=== PATIENT | male | born 1975 | race Caucasian/White ===

== ENCOUNTER 2018-06-25 20:20 | Inpatient (IN) ==
[2018-06-25] MEDS ORDERED: *HR* LORazepam 2 MG/ML VIAL IVP PRN (20:41)
[2018-06-25] MEDS ORDERED: *HR* LORazepam 2 MG/ML VIAL ONE (20:43)
[2018-06-25] MEDS ORDERED: 0.9 % Sodium Chloride 1,000 ML IVC ONE ×3 (20:44→21:50)
[2018-06-25] MEDS ORDERED: *HR* LORazepam 2 MG/ML VIAL IVP ONE (20:49)
[2018-06-25] MEDS ORDERED: Haloperidol Lactate 5 MG/ML VIAL IVP ONE (20:51)
[2018-06-25] MEDS: Isovue-370 500 ML INFUS..BTL IV ONE ×2 (21:04→21:05)
--- NOTE | 2018-06-25 21:05 | Emergency Department Note ---
Disposition Clinical Impression: Generalized seizure, Agitation, Hepatic encephalopathy Disposition: Admitted As Inpatient Condition: Fair General Adult HPI - General Chief complaint: ED Seizure Stated complaint: AMS Time Seen by Provider: 06/25/18 20:29 Source: EMS Limitations: altered mental status Nursing Notes Reviewed: Yes Vital Signs Reviewed: Yes - History of Present Illness HPI Narrative: 43-year-old male presents emergency department via EMS with concern for being found unresponsive at home. Family reported that patient had a seizure. He has history of seizures. Reports history of liver cirrhosis because he use to drink alcohol. Reports that he has not consumed alcohol in years. No known history of agitation the past per family members including . Reported that patient complaining of some left flank pain earlier today. Patient very agitated and stating that he wants to leave AGAINST MEDICAL ADVICE. When asked, family state that the patient has had no stressors recently. Reports that he has had no psy chiatric illnesses. Do not know what type of antiepileptic medication he is on. Reports that he has been to the neurologist. Pain Scale: 0 - Related Data Home Medications Medication Instructions Recorded Confirmed Amlodipine Besylate 2.5 mg PO HS 09/20/17 09/20/17 Insulin ASPART [NovoLOG] 0 unit SQ TIDWM 09/20/17 06/25/18 [place]-3 Fatty Acids [Fish Oil] 1,000 mg PO QAM 09/20/17 06/25/18 Pravastatin Sodium [Pravachol] 40 mg PO HS 09/20/17 06/25/18 metFORMIN [Glucophage] 1,000 mg PO BIDWM 09/20/17 06/25/18 Isosorbide DInitrate 06/25/18 Neurontin 06/25/18 06/25/18 Nicoderm 06/25/18 Nitro-Bid 06/25/18 Omeprazole 20 06/25/18 TraZODone 06/25/18 06/25/18 Allergies Allergy/AdvReac Type Severity Reaction Status Date / Time linagliptin [From Tradjenta] Allergy Hives Verified 09/20/17 19:35 terfenadine [From Seldane] Allergy Rash Verified 09/20/17 19:35 All systems ED: reviewed and negative except as stated. Review of Systems: As Per HPI Limitations: ROS unobtainable due to patients medical condition (Agitated) Past Medical History - Past Medical History Medical history: Reports: asthma, diabetes, hyperlipidemia, hypertension, seizures, TIA Surgical history: Reports: appendectomy Psychiatric history: Reports: bipolar - Social History Smoking Status: Current every day smoker Smokeless Tobacco Status: No Alcohol use: Reports: none Drug use: Reports: none Physical Exam - General Limitations: altered mental status General appearance: anxious, other (Patient very angry and agitated) - Head Head exam: atraumatic - Eye Eye exam: Present: EOMI. Absent: scleral icterus - ENT ENT exam: mucous membranes moist - Neck Neck exam: Present: trachea midline - Chest Chest inspection: Present: symmetric chest wall rise - Respiratory Respiratory exam: Present: normal lung sounds bilaterally. Absent: respiratory distress, accessory muscle use - Cardiovascular Cardiovascular exam: Present: tachycardia - Abdominal Exam Abdominal exam: Present: soft, Non-Tender. Absent: tenderness, distention, guarding, rebound - Extremities Exam Extremities exam: Present: normal capillary refill - Back Exam Back exam: Present: full ROM - Neurological Exam Neurological exam: Present: other (Unable to assess due to patient's agitation) - Psychiatric Psychiatric exam: Present: normal mood - Skin Skin exam: Present: warm, dry, intact, normal color. Absent: rash Course Vital Signs Temperature 99.1 F 06/25/18 20:22 Pulse Rate 161 06/25/18 20:22 Respiratory Rate 32 06/25/18 20:22 Blood Pressure 114/65 06/25/18 20:22 O2 Sat by Pulse Oximetry 93 06/25/18 20:22 Temperature 99.1 F 06/25/18 20:22 Pulse Rate 110 06/25/18 21:37 Respiratory Rate 15 06/25/18 21:37 Blood Pressure 106/74 06/25/18 21:37 O2 Sat by Pulse Oximetry 100 06/25/18 21:37 Oxygen Delivery Oxygen Delivery Room Air Medical Decision Making - MDM Narrative Medical decision making narrative: 43-year-old male presents emergency department with acute agitation. Patient is tachycardic, hypertensive, extremely agitated. We gave 4 mg of Ativan as well as 5 mg of Haldol. Patient has known history of coronary artery disease. He is receiving heart catheter on Wednesday. We wanted to help patient with his agitation as much as possible out of concern for causing patient to develop ACS. Patient did calm down after the initial spell of agitation. His EKG did not reveal any ischemic changes. Troponin was negative. We obtain a serum CK isconcern that patient may have had seizure-like activity. This is within normal limits. Patient was given a banana bag here in the emergency department visit is concerned that he may be chronic alcoholic despite reports that family state that he is not. He was also given 3 L of fluids. Normal saline. We obtain CT scan of the head as well as CT angiography of the chest and CTAof the abdomen and pelvis. It does not reveal any acute abnormality. There is concerns however, for splenomegaly and portal hypertension per radiology. Patient did have an elevated ammonia level of 63. We did give him lactulose. Patient was hypokalemic at 3.2. Given 40 mEq of potassium. We will also obtain a magnesium level the patient as well. Blood cultures have been obtained. We will not start antimicrobials at this time as we do not find a source of infection. Lactic acid was elevated at 4.8. This was addressed with fluid administration. Patient has a known diabetic. He had elevated glucose. No evidence of diabetic ketoacidosis at this time. No evidence of any other anti-gap acidosis as well. At this time, there is mostly concerning for possibility of alcohol withdrawal. Urine drug screen does not reveal any evidence of other ingestants that could be causing a sympathomimetic responses with the patient's having. I discussed admission with the family. Patient was pink slipped as there was concern that there may be a psychiatric component to this. I spoke with Dr. Mak agreed to accept the patient for admission. He has been placed on [facility] protocol. Abdomen/Pelvis CTA 06/25/18 20:40 IMPRESSION: 1. No acute aortic pathology. No aneurysm or dissection. Minimal atherosclerotic disease at the aortic bifurcation. No flow limiting stenosis. 2. No acute pulmonary findings. 3. No acute findings within the abdomen or pelvis. 4. Stable mild to moderate splenomegaly. This may be related to portal hypertension with gastric and esophageal varices apparent on previous CT of the abdomen. D/ : / 06/25/2018 21:48:04 José Miguel Albert MD / Shari Zhang Interpreting Provider: José Miguel Albert MD Chest CTA 06/25/18 20:40 IMPRESSION: 1. No acute aortic pathology. No aneurysm or dissection. Minimal atherosclerotic disease at the aortic bifurcation. No flow limiting stenosis. 2. No acute pulmonary findings. 3. No acute findings within the abdomen or pelvis. 4. Stable mild to moderate splenomegaly. This may be related to portal hypertension with gastric and esophageal varices apparent on previous CT of the abdomen. D/ / 06/25/2018 21:48:04 José Miguel Albert MD / Shari Zhang Interpreting Provider: José Miguel Albert MD Head CT 06/25/18 20:40 IMPRESSION: No acute intracranial abnormality. D/ / David Gage MD / David Gage MD Interpreting Provider: David Gage MD Vital Signs Temperature 99.1 F 06/25/18 20:22 Pulse Rate 161 06/25/18 20:22 Respiratory Rate 32 06/25/18 20:22 Blood Pressure 114/65 06/25/18 20:22 O2 Sat by Pulse Oximetry 93 06/25/18 20:22 Temperature 99.1 F 06/25/18 20:22 Pulse Rate 110 06/25/18 21:37 Respiratory Rate 15 06/25/18 21:37 Blood Pressure 106/74 06/25/18 21:37 O2 Sat by Pulse Oximetry 100 06/25/18 21:37 Oxygen Delivery Oxygen Delivery Room Air - Lab Data Result diagrams: 06/25/18 21:11 06/25/18 21:11 Lab Results 06/25/18 06/25/18 06/25/18 Range/Units 21:03 21:11 21:11 WBC 4.3 (4.3-11.1) K/mcL RBC 4.38 (4.19-5.50) M/mcL Hgb 13.6 (12.9-16.9) g/dL Hct 38.8 (37.5-50.1) % MCV 88.6 (83.0-100.0) fL MCH 31.1 (28.0-33.3) pg MCHC 35.1 (31.6-35.5) g/dL RDW 12.4 (11.5-14.5) % Plt Count 50 L (140-400) K/mcL MPV 11.1 (9.4-12.4) fL Immature Gran % 0.2 (0-4) % Seg Neutrophils % 78.3 % Lymphocytes % 11.8 % Monocytes % 8.6 % Eosinophils % 0.9 % Basophils % 0.2 % Neutrophils # 3.4 (1.6-8.9) K/mcL Lymphocytes # 0.5 L (0.6-4.6) K/mcL Monocytes # 0.4 (0.0-1.3) K/mcL Eosinophils # 0.0 (0.0-0.6) K/mcL Basophils # 0.0 (0.0-0.2) K/mcL Immature Plt Fraction 4.5 (1.1-6.1) % PT 15.2 H (9.4-12.1) Seconds INR 1.4 VBG pH (7.32-7.42) pH Units VBG pCO2 (41-51) mmHg VBG pO2 (25-50) mmHg VBG HCO3 (21-27) mEq/L Sodium 134 L (136-145) mEq/L Potassium 3.2 L (3.5-5.1) mEq/L Chloride 106 (98-107) mEq/L Carbon Dioxide 18 L (23-29) mEq/L BUN 8 (6-20) mg/dL Creatinine 0.79 (0.70-1.30) mg/dL Est GFR ( Amer) > 60 (> 60) Est GFR (Non-Af Amer) > 60 (> 60) BUN/Creatinine Ratio 10 (6-26) Glucose 397 H (70-105) mg/dL Calculated Osmolality 293 (280-300) Lactic Acid (0.5-2.2) mmol/L Calcium 8.9 (8.6-10.3) mg/dL Magnesium 1.7 (1.6-2.6) mg/dL Total Bilirubin 0.6 (0.3-1.0) mg/dL Direct Bilirubin 0.1 (0.0-0.2) mg/dL Indirect Bilirubin 0.5 (0.0-1.2) mg/dL AST 32 (13-39) Units/L ALT 66 H (7-52) Units/L Alkaline Phosphatase 50 (34-104) Units/L Ammonia (16-53) mcmol/L Creatine Kinase 70 (30-223) Units/L Troponin I < 0.03 (< 0.04) ng/mL Serum Total Protein 5.8 L (6.4-8.9) g/dL Albumin 3.5 (3.5-5.7) g/dL Globulin 2.3 L (2.4-3.5) g/dL Albumin/Globulin Ratio 1.5 (1.1-2.2) Lipase 23 (11-82) Units/L Beta-Hydroxybutyric Acd (0.02-0.27) mmol/L TSH 2.434 (0.340-5.600) mcIU/mL Urine Color (Yellow) Urine Clarity (Clear) Urine pH (5.0-8.0) pH Units Ur Specific [place] (1.010-1.025) Urine Protein (Neg-Trace) mg/dL Urine Glucose (UA) (Normal) mg/dL Urine Ketones (Negative) mg/dL Urine Blood (Negative) Urine Nitrite (Negative) Urine Bilirubin (Negative) Urine Urobilinogen (Normal) mg/dL Ur Leukocyte Esterase (Negative) Ur Culture Indicated? (NO) Salicylates < 2.5 L (15.0-30.0) mg/dL Urine Opiates Screen (Iogbuh=906) ng/mL Acetaminophen < 10 L (10-20) mcg/mL Ur Barbiturates Screen (Rqrirb=242) ng/mL Ur Phencyclidine Scrn (Cutoff=25) ng/mL Ur Amphetamines Screen (Dbceei=2526) ng/mL U Benzodiazepines Scrn (Cgdgvt=950) ng/mL Urine Cocaine Screen (Cutoff= 300) ng/mL U Marijuana (THC) Screen (Cutoff = 50) ng/mL Ur Drug Screen Interp Ethyl Alcohol < 10 (Less than 10) mg/dL 06/25/18 06/25/18 06/25/18 Range/Units 21:11 21:11 21:11 WBC (4.3-11.1) K/mcL RBC (4.19-5.50) M/mcL Hgb (12.9-16.9) g/dL Hct (37.5-50.1) % MCV (83.0-100.0) fL MCH (28.0-33.3) pg MCHC (31.6-35.5) g/dL RDW (11.5-14.5) % Plt Count (140-400) K/mcL MPV (9.4-12.4) fL Immature Gran % (0-4) % Seg Neutrophils % % Lymphocytes % % Monocytes % % Eosinophils % % Basophils % % Neutrophils # (1.6-8.9) K/mcL Lymphocytes # (0.6-4.6) K/mcL Monocytes # (0.0-1.3) K/mcL Eosinophils # (0.0-0.6) K/mcL Basophils # (0.0-0.2) K/mcL Immature Plt Fraction (1.1-6.1) % PT (9.4-12.1) Seconds INR VBG pH (7.32-7.42) pH Units VBG pCO2 (41-51) mmHg VBG pO2 (25-50) mmHg VBG HCO3 (21-27) mEq/L Sodium (136-145) mEq/L Potassium (3.5-5.1) mEq/L Chloride (98-107) mEq/L Carbon Dioxide (23-29) mEq/L BUN (6-20) mg/dL Creatinine (0.70-1.30) mg/dL Est GFR ( Amer) (> 60) Est GFR (Non-Af Amer) (> 60) BUN/Creatinine Ratio (6-26) Glucose (70-105) mg/dL Calculated Osmolality (280-300) Lactic Acid 4.8 H* (0.5-2.2) mmol/L Calcium (8.6-10.3) mg/dL Magnesium (1.6-2.6) mg/dL Total Bilirubin (0.3-1.0) mg/dL Direct Bilirubin (0.0-0.2) mg/dL Indirect Bilirubin (0.0-1.2) mg/dL AST (13-39) Units/L ALT (7-52) Units/L Alkaline Phosphatase (34-104) Units/L Ammonia 63 H (16-53) mcmol/L Creatine Kinase (30-223) Units/L Troponin I (< 0.04) ng/mL Serum Total Protein (6.4-8.9) g/dL Albumin (3.5-5.7) g/dL Globulin (2.4-3.5) g/dL Albumin/Globulin Ratio (1.1-2.2) Lipase (11-82) Units/L Beta-Hydroxybutyric Acd 0.25 (0.02-0.27) mmol/L TSH (0.340-5.600) mcIU/mL Urine Color (Yellow) Urine Clarity (Clear) Urine pH (5.0-8.0) pH Units Ur Specific [place] (1.010-1.025) Urine Protein (Neg-Trace) mg/dL Urine Glucose (UA) (Normal) mg/dL Urine Ketones (Negative) mg/dL Urine Blood (Negative) Urine Nitrite (Negative) Urine Bilirubin (Negative) Urine Urobilinogen (Normal) mg/dL Ur Leukocyte Esterase (Negative) Ur Culture Indicated? (NO) Salicylates (15.0-30.0) mg/dL Urine Opiates Screen (Eqgwkm=557) ng/mL Acetaminophen (10-20) mcg/mL Ur Barbiturates Screen (Nfqjih=822) ng/mL Ur Phencyclidine Scrn (Cutoff=25) ng/mL Ur Amphetamines Screen (Xwifka=4188) ng/mL U Benzodiazepines Scrn (Ftyqbt=180) ng/mL Urine Cocaine Screen (Cutoff= 300) ng/mL U Marijuana (THC) Screen (Cutoff = 50) ng/mL Ur Drug Screen Interp Ethyl Alcohol (Less than 10) mg/dL 06/25/18 06/25/18 06/25/18 Range/Units 21:20 21:20 21:22 WBC (4.3-11.1) K/mcL RBC (4.19-5.50) M/mcL Hgb (12.9-16.9) g/dL Hct (37.5-50.1) % MCV (83.0-100.0) fL MCH (28.0-33.3) pg MCHC (31.6-35.5) g/dL RDW (11.5-14.5) % Plt Count (140-400) K/mcL MPV (9.4-12.4) fL Immature Gran % (0-4) % Seg Neutrophils % % Lymphocytes % % Monocytes % % Eosinophils % % Basophils % % Neutrophils # (1.6-8.9) K/mcL Lymphocytes # (0.6-4.6) K/mcL Monocytes # (0.0-1.3) K/mcL Eosinophils # (0.0-0.6) K/mcL Basophils # (0.0-0.2) K/mcL Immature Plt Fraction (1.1-6.1) % PT (9.4-12.1) Seconds INR VBG pH 7.40 (7.32-7.42) pH Units VBG pCO2 29 L (41-51) mmHg VBG pO2 117 H (25-50) mmHg VBG HCO3 18 L (21-27) mEq/L Sodium (136-145) mEq/L Potassium (3.5-5.1) mEq/L Chloride (98-107) mEq/L Carbon Dioxide (23-29) mEq/L BUN (6-20) mg/dL Creatinine (0.70-1.30) mg/dL Est GFR ( Amer) (> 60) Est GFR (Non-Af Amer) (> 60) BUN/Creatinine Ratio (6-26) Glucose (70-105) mg/dL Calculated Osmolality (280-300) Lactic Acid (0.5-2.2) mmol/L Calcium (8.6-10.3) mg/dL Magnesium (1.6-2.6) mg/dL Total Bilirubin (0.3-1.0) mg/dL Direct Bilirubin (0.0-0.2) mg/dL Indirect Bilirubin (0.0-1.2) mg/dL AST (13-39) Units/L ALT (7-52) Units/L Alkaline Phosphatase (34-104) Units/L Ammonia (16-53) mcmol/L Creatine Kinase (30-223) Units/L Troponin I (< 0.04) ng/mL Serum Total Protein (6.4-8.9) g/dL Albumin (3.5-5.7) g/dL Globulin (2.4-3.5) g/dL Albumin/Globulin Ratio (1.1-2.2) Lipase (11-82) Units/L Beta-Hydroxybutyric Acd (0.02-0.27) mmol/L TSH (0.340-5.600) mcIU/mL Urine Color Yellow (Yellow) Urine Clarity Clear (Clear) Urine pH 5.5 (5.0-8.0) pH Units Ur Specific [place] > 1.030 H (1.010-1.025) Urine Protein Negative (Neg-Trace) mg/dL Urine Glucose (UA) >=1000 H (Normal) mg/dL Urine Ketones Negative (Negative) mg/dL Urine Blood Negative (Negative) Urine Nitrite Negative (Negative) Urine Bilirubin Negative (Negative) Urine Urobilinogen Normal (Normal) mg/dL Ur Leukocyte Esterase Negative (Negative) Ur Culture Indicated? NO (NO) Salicylates (15.0-30.0) mg/dL Urine Opiates Screen Negative (Kuocea=223) ng/mL Acetaminophen (10-20) mcg/mL Ur Barbiturates Screen Negative (Kktqvj=209) ng/mL Ur Phencyclidine Scrn Negative (Cutoff=25) ng/mL Ur Amphetamines Screen Negative (Zkximd=5823) ng/mL U Benzodiazepines Scrn Positive H (Sktjln=171) ng/mL Urine Cocaine Screen Negative (Cutoff= 300) ng/mL U Marijuana (THC) Screen Negative (Cutoff = 50) ng/mL Ur Drug Screen Interp See Below Ethyl Alcohol (Less than 10) mg/dL - EKG Data EKG #1 EKG attestation: Yes I reviewed and interpreted this EKG. EKG results narrative: Heart rate 137 bpm, DE interval 147 ms, QRS duration 88 ms, QT 296 ms, QTC 447 ms, normal axis. Sinus tachycardia ventricular rate of 137 bpm. No evidence of any ischemic ST changes on this EKG. No right axis deviation, tall R-wave in aVR, QT calculated is mildly prolonged
[2018-06-25] MEDS ORDERED: Thiamine (B-1) 100 MG in 0.9 % Sodium Chloride 50 ML IVPB STA (21:11)
--- NOTE | 2018-06-25 21:12 | Emergency Department Note ---
Disposition Clinical Impression: Generalized seizure Disposition: Admitted As Inpatient Forms: ED Satisfaction Letter Time of Disposition: 21:12 General Adult HPI - General Chief complaint: ED Seizure Stated complaint: AMS Time Seen by Provider: 06/25/18 20:29 Source: EMS Limitations: altered mental status - History of Present Illness Pain Scale: 0 - Related Data Home Medications Medication Instructions Recorded Confirmed Amlodipine Besylate 2.5 mg PO HS 09/20/17 09/20/17 Insulin ASPART [NovoLOG] 0 unit SQ TIDWM 09/20/17 09/20/17 [place]-3 Fatty Acids [Fish Oil] 1,000 mg PO QAM 09/20/17 09/20/17 Pravastatin Sodium [Pravachol] 40 mg PO HS 09/20/17 09/20/17 metFORMIN [Glucophage] 1,000 mg PO BIDWM 09/20/17 09/20/17 Allergies Allergy/AdvReac Type Severity Reaction Status Date / Time linagliptin [From Tradjenta] Allergy Hives Verified 09/20/17 19:35 terfenadine [From Seldane] Allergy Rash Verified 09/20/17 19:35 Past Medical History - Past Medical History Medical history: Reports: asthma, diabetes, hyperlipidemia, hypertension, seizures, TIA Surgical history: Reports: appendectomy Psychiatric history: Reports: bipolar - Social History Smoking Status: Current every day smoker Smokeless Tobacco Status: No Alcohol use: Reports: none Drug use: Reports: none Physical Exam - General Limitations: altered mental status General appearance: anxious, other Course Vital Signs Temperature 99.1 F 06/25/18 20:22 Pulse Rate 161 06/25/18 20:22 Respiratory Rate 32 06/25/18 20:22 Blood Pressure 114/65 06/25/18 20:22 O2 Sat by Pulse Oximetry 93 06/25/18 20:22 Temperature 99.1 F 06/25/18 20:22 Pulse Rate 161 06/25/18 20:22 Respiratory Rate 32 06/25/18 20:22 Blood Pressure 114/65 06/25/18 20:22 O2 Sat by Pulse Oximetry 93 06/25/18 20:22 Oxygen Delivery Oxygen Delivery Room Air Attestation Statement - Attestation Attestation: I examined this patient and my medical decision-making was reviewed with the Resident Physician. I agree with the documented findings, disposition and treatment plan as described except to the extent set forth below. 43 year male presnts to the ED with complaints of agitation and tachycardiac in addiitionto hypertensive and had an unwtinessed seizure per family today. Kourtney was given 10mg valim per EMS and it appers that he has a history of alcoholism. Patient is displaying sympathomimetic behavior and this could be alcohol withdrawl as he presented with an unwitnessed seizure. Patint has required a great deal of seadtion at bed side and he became aggresssive towards staff and we have placed him on a72 hours pysch hold and will need to admit to medicine as he will likely need obserabtion for further wrosening of symptoms.
[2018-06-25 21:25] LABS: Basophils % 0.2 %; Mean Corpuscular Hemoglobin 31.1 pg (28.0-33.3)
[2018-06-25 21:25] LABS: VBG HCO3 18 mEq/L (21-27); VBG PCO2 29 mmHg (41-51); VBG PO2 117 mmHg (25-50)
[2018-06-25 21:26] LABS: Eosinophils % 0.9 %; Hematocrit 38.8 % (37.5-50.1); Hemoglobin 13.6 g/dL (12.9-16.9); Immature Granulocytes % 0.2 % (0-4); Immature Platelets 4.5 % (1.1-6.1); Lymphocytes # 0.5 K/mcL (0.6-4.6); Lymphocytes % 11.8 %; Mean Corpuscular HGB Conc 35.1 g/dL (31.6-35.5); Mean Corpuscular Volume 88.6 fL (83.0-100.0); Mean Platelet Volume 11.1 fL (9.4-12.4); Monocytes # 0.4 K/mcL (0.0-1.3); Monocytes % 8.6 %; Neutrophils # 3.4 K/mcL (1.6-8.9); Red Blood Count 4.38 M/mcL (4.19-5.50); Red Cell Distribution Width 12.4 % (11.5-14.5); Segmented Neutrophils % 78.3 %
[2018-06-25 21:32] LABS: Platelet Count 50 K/mcL (140-400)
[2018-06-25 21:39] LABS: Bilirubin,Urine Negative (Negative); Blood,Urine Negative (Negative); Clarity,Urine Clear (Clear); Color,Urine Yellow (Yellow); Glucose,Urine (UA) >=1000 mg/dL (Normal); Ketones,Urine Negative (Negative); Leukocyte Esterase,Urine Negative (Negative); Nitrite,Urine Negative (Negative); PH,Urine 5.5 pH Units (5.0-8.0); Protein,Urine Negative (Neg-Trace); Specific Gravity,Urine > 1.030 (1.010-1.025); Urobilinogen,Urine Normal (Normal)
[2018-06-25 21:46] LABS: Troponin I < 0.03 ng/mL (< 0.04)
[2018-06-25 21:47] LABS: Acetaminophen < 10 mcg/mL (10-20); Alanine Aminotransferase 66 Units/L (7-52); Albumin 3.5 g/dL (3.5-5.7); Albumin/Globulin Ratio 1.5 (1.1-2.2); Alkaline Phosphatase 50 Units/L (34-104); Aspartate Amino Transferase 32 Units/L (13-39); BUN/Creatinine Ratio 10 (6-26); Bilirubin,Direct 0.1 mg/dL (0.0-0.2); Bilirubin,Indirect 0.5 mg/dL (0.0-1.2); Bilirubin,Total 0.6 mg/dL (0.3-1.0); Blood Urea Nitrogen 8 mg/dL (6-20); Calcium 8.9 mg/dL (8.6-10.3); Carbon Dioxide 18 mEq/L (23-29); Chloride 106 mEq/L (98-107); Creatine Kinase 70 Units/L (30-223); Globulin 2.3 g/dL (2.4-3.5); Glucose 397 mg/dL (70-105); Osmolality,Calculated 293 (280-300); Potassium 3.2 mEq/L (3.5-5.1); Salicylate < 2.5 mg/dL (15.0-30.0); Sodium 134 mEq/L (136-145); Total Protein 5.8 g/dL (6.4-8.9); eGFR For Non-African Americans > 60 (> 60)
[2018-06-25] MEDS ORDERED: Lactulose Oral Soln 20 GM/30 ML UDC PO ONE (21:47)
[2018-06-25 21:52] LABS: Amphetamine Screen,Urine Negative ng/mL (Cutoff=1000); Barbiturate Screen,Urine Negative ng/mL (Cutoff=200); Benzodiazepines Screen,Urine Positive ng/mL (Cutoff=200); Cannabinoid Screen,Urine Negative ng/mL (Cutoff = 50); Cocaine Screen,Urine Negative ng/mL (Cutoff= 300); Opiate Screen,Urine Negative ng/mL (Cutoff=300); Phencyclidine Screen,Urine Negative ng/mL (Cutoff=25)
[2018-06-25 21:58] LABS: Ethanol < 10 mg/dL (Less than 10)
[2018-06-25 22:00] LABS: Thyroid Stimulating Hormone 2.434 mcIU/mL (0.340-5.600)
[2018-06-25 22:37] LABS: Lipase 23 Units/L (11-82); Magnesium 1.7 mg/dL (1.6-2.6)
[2018-06-25 22:39] LABS: INR 1.4; Prothrombin Time 15.2 Seconds (9.4-12.1)
[2018-06-25] MEDS ORDERED: Naloxone 0.4 MG/ML INJ IVP PRN (23:54)
[2018-06-26] MEDS ORDERED: *HR* LORazepam 2 MG/ML VIAL IVP PRN (00:04)
[2018-06-26 01:21] LABS: Basophils % 0.4 %; Mean Corpuscular Volume 89.1 fL (83.0-100.0)
[2018-06-26 01:23] LABS: Eosinophils # 0.1 K/mcL (0.0-0.6); Eosinophils % 1.3 %; Hemoglobin 14.1 g/dL (12.9-16.9); Immature Granulocytes % 0.2 % (0-4); Immature Platelets 5.4 % (1.1-6.1); Lymphocytes # 1.1 K/mcL (0.6-4.6); Lymphocytes % 20.8 %; Mean Corpuscular HGB Conc 35.3 g/dL (31.6-35.5); Mean Corpuscular Hemoglobin 31.4 pg (28.0-33.3); Mean Platelet Volume 11.5 fL (9.4-12.4); Monocytes # 0.4 K/mcL (0.0-1.3); Monocytes % 8.4 %; Neutrophils # 3.6 K/mcL (1.6-8.9); Red Blood Count 4.49 M/mcL (4.19-5.50); Red Cell Distribution Width 12.8 % (11.5-14.5); Segmented Neutrophils % 68.9 %
--- NOTE | 2018-06-26 01:30 | Internal Med History&Physical ---
<Sreedhar Laguerre Heath - Last Filed: 06/26/18 05:13> Date of Encounter: 06/26/18 Time of Encounter: 01:30 Internal Medicine - H&P: HPI Chief complaint: AMS Admitted From: Home Plans for Post Hospital Care: Home History of present illness: Mr. Munoz is a 43 year old male with PMH of cirrhosis, alcohol abuse, asthma, DM2, HLD, HTN, seizure disorder, and previous TIA. He presented to the ED today after being found unresponsive at home. Per ED reports, pt's reported that she was downstairs in the home and heard a thump upstairs. When she investigated she found her on the floor. Reported that he was breathing spontaneously but was not arousable. Since the pt has a known hx of seizures, the pt's waiting a short amount of time before calling EMS to bring him to the ED. Pt was given Ativan en route to the ED with a hx of alcohol abuse. Upon arrival to the ED, the pt became very agitated and aggressive. He was given Haldol and additional Ativan. During the encounter with this provider the pt was grossly lethargic likely related to significant amount of sedating medications. He was arousable to voice. Stated he did have some left lower quadrant pain. Denied any chest pain, shortness of breath, headache, numbness, or tingling. He was alert and oriented x3, and was able to recall that his was recently in the room, but was unaware of inciting events or ED events. The remaining history was limited as patient was not able to recall all information. He does admit to a history of seizures and follows with a neurologist at [facility]. Unsure of what seizure medications he has at home, but states he is compliant with the regimen. Endorses a history of alcohol abuse, but states his last alcoholic beverage was years ago. This was also endorsed by the pt's prior to my arrival. Past Med Surg Social Fam HX - Past Medical History Medical history: asthma, diabetes, hyperlipidemia, hypertension, seizures, TIA Additional medical history: liver cirrhosis. aortic aneurysm Psychiatric history: bipolar - Past Surgical History Surgical History: appendectomy - Social History Smoking Status: Current every day smoker Smokeless Tobacco Status: No Alcohol use: none Drug use: none - Family History Mother History Unknown: Yes Adopted: Yes Father History Unknown: Yes Adopted: Yes Internal Medicine - H&P: Meds Amlodipine Besylate 2.5 mg PO HS 09/20/17 [History] Insulin ASPART [NovoLOG] 0 unit SQ TIDWM 09/20/17 [History] [place]-3 Fatty Acids [Fish Oil] 1,000 mg PO QAM 09/20/17 [History] Pravastatin Sodium [Pravachol] 40 mg PO HS 09/20/17 [History] metFORMIN [Glucophage] 1,000 mg PO BIDWM 09/20/17 [History] Isosorbide DInitrate 06/25/18 [History] Neurontin 06/25/18 [History] Nicoderm 06/25/18 [History] Nitro-Bid 06/25/18 [History] Omeprazole 20 06/25/18 [History] TraZODone 06/25/18 [History] Allergy/AdvReac Type Severity Reaction Status Date / Time linagliptin [From Tradjenta] Allergy Hives Verified 09/20/17 19:35 terfenadine [From Seldane] Allergy Rash Verified 09/20/17 19:35 ROS unobtainable: due to mental status All Systems PM: A 10-system review of systems was performed and is negative for pertinent findings except as documented above in the HPI. - Constitutional Constitutional: no chills, no fever(s) - Cardiovascular Cardiovascular ROS IM: no chest pain, no dyspnea - Respiratory Respiratory: no cough, no hemoptysis, no dyspnea on exertion, no wheezing - Gastrointestinal Gastrointestinal: abdominal pain, no change in bowel habits, no nausea, no vomiting - Constitutional Vitals: Temp Pulse Resp BP Pulse Ox 99.1 F 110 15 106/74 100 06/25/18 20:22 06/25/18 21:37 06/25/18 21:37 06/25/18 21:37 06/25/18 21:37 General appearance: Present: cooperative, A&O X 3, answers questions appropriately Exam: General: well developed well nourished lethargic male Head: normocephalic and atraumatic Eyes: PERRL, EOMI, sclera anicteric, conjunctiva pink Neck: supple, trachea midline Lungs: CTA bilaterally. non-labored breathing. No wheezes, rales, or rhonchi. Heart: RRR +S1 +S2 no murmurs, clicks, or rubs GI: abdomen soft, midly TTP of right lower quadrant with some guarding. normoactive bowel sounds. Extremities: warm, peripheral pulses palpable and symmetrical. no cyanosis, edema, or calf tenderness Neuro: A&Ox3 when arousable. Remains grossly lethargic which makes full assessment difficult. Follows commands and moves all 4 extremities spontaneously Skin: warm, dry, intact Internal Med - H&P Results - Labs CBC & Chem 7: 06/26/18 01:02 06/26/18 01:02 Labs: Short CBC 06/25/18 Range/Units 21:11 WBC 4.3 (4.3-11.1) K/mcL Hgb 13.6 (12.9-16.9) g/dL Hct 38.8 (37.5-50.1) % Plt Count 50 L (140-400) K/mcL Neutrophils # 3.4 (1.6-8.9) K/mcL BMP 06/25/18 21:11 Sodium 134 L Potassium 3.2 L Chloride 106 Carbon Dioxide 18 L BUN 8 Creatinine 0.79 Glucose 397 H Calcium 8.9 Cardiac Enzymes 06/25/18 Range/Units 21:11 Troponin I < 0.03 (< 0.04) ng/mL Liver Function 06/25/18 Range/Units 21:11 Total Bilirubin 0.6 (0.3-1.0) mg/dL Direct Bilirubin 0.1 (0.0-0.2) mg/dL AST 32 (13-39) Units/L ALT 66 H (7-52) Units/L Alkaline Phosphatase 50 (34-104) Units/L Albumin 3.5 (3.5-5.7) g/dL Urine 06/25/18 Range/Units 21:20 Urine Color Yellow (Yellow) Urine Clarity Clear (Clear) Urine pH 5.5 (5.0-8.0) pH Units Ur Specific [place] > 1.030 H (1.010-1.025) Urine Protein Negative (Neg-Trace) mg/dL Urine Glucose (UA) >=1000 H (Normal) mg/dL - ABG Interpretation ABG results: 06/25/18 21:22 VBG pH 7.40 VBG pCO2 29 L VBG pO2 117 H VBG HCO3 18 L - Impressions ITS Impressions Abdomen/Pelvis CTA 06/25/18 20:40 IMPRESSION: 1. No acute aortic pathology. No aneurysm or dissection. Minimal atherosclerotic disease at the aortic bifurcation. No flow limiting stenosis. 2. No acute pulmonary findings. 3. No acute findings within the abdomen or pelvis. 4. Stable mild to moderate splenomegaly. This may be related to portal hypertension with gastric and esophageal varices apparent on previous CT of the abdomen. D/ /25/2018 21:48:04 José Miguel Albert MD / Shari Zhang Interpreting Provider: José Miguel Albert MD Chest CTA 06/25/18 20:40 IMPRESSION: 1. No acute aortic pathology. No aneurysm or dissection. Minimal atherosclerotic disease at the aortic bifurcation. No flow limiting stenosis. 2. No acute pulmonary findings. 3. No acute findings within the abdomen or pelvis. 4. Stable mild to moderate splenomegaly. This may be related to portal hypertension with gastric and esophageal varices apparent on previous CT of the abdomen. D/ /25/2018 21:48:04 José Miguel Albert MD / Shari Zhang Interpreting Provider: José Miguel Albert MD Head CT 06/25/18 20:40 IMPRESSION: No acute intracranial abnormality. D/ / David Gage MD / David Gage MD Interpreting Provider: David Gage MD - Assessment and plan (1) Generalized seizure Current Visit: Yes Status: Acute Assessment and plan: Unclear whether this episode of AMS was atypical seizure vs hepatic encephalopathy vs TIA CT head from ED was negative for acute abnormality Unknown seizure meds at this time, follows with neurologist at [facility] Received IV fluids in ED as well as a banana bag with reported remote alcohol use Also received lactulose in ED Has improved some clinically at this time. Is easily arousable and is A&Ox3 and was able to recall his was in the room earlier, however is not able to recall events from home or ED Will obtain MRI head to evaluate for any possible ischemic changes, and EEG with seizure hx Consult neurology for evaluation and input for further management (2) Hepatic encephalopathy Current Visit: Yes Status: Acute Assessment and plan: plan as above (3) Seizure disorder Current Visit: Yes Status: Chronic Assessment and plan: pt and pt's endorse a hx of seizure disorder Follows with neurologist at [facility] Unknown home meds at this time Can attempt to obtain records during the day (4) Cirrhosis Current Visit: Yes Status: Chronic Assessment and plan: known history Pt and pt's reports he has not consumed alcohol in multiple years Qualifiers: Hepatic cirrhosis type: alcoholic cirrhosis Ascites presence: unspecified Qualified Code(s): K70.30 - Alcoholic cirrhosis of liver without ascites (5) Thrombocytopenia Current Visit: Yes Status: Chronic Assessment and plan: Likely due to cirrhosis Was 50 on admission, has improved to 56 this morning Continue to monitor (6) DVT prophylaxis Current Visit: Yes Status: Acute Assessment and plan: EPCDs Hold chemical prophylaxis at this time with thrombocytopenia - Time Spent With Patient Total time spent is greater than 50% in coordination of care (as documented) at patient's floor/unit and/or counseling patient: <RooseveltmartinfedericoRandalgregg A - Last Filed: 06/26/18 06:24> Date of Encounter: 06/26/18 Internal Medicine - H&P: HPI History of present illness: Mr. Munoz is a 43 year old male All Systems PM: A 10-system review of systems was performed and is negative for pertinent findings except as documented above in the HPI. - Constitutional Vitals: Temp Pulse Resp BP Pulse Ox 97.9 F 95 18 115/77 100 06/26/18 01:45 06/26/18 02:55 06/26/18 02:55 06/26/18 02:55 06/26/18 02:55 Internal Med - H&P Results - Labs CBC & Chem 7: 06/26/18 01:02 06/26/18 01:02 Labs: Short CBC 06/25/18 06/26/18 Range/Units 21:11 01:02 WBC 4.3 5.2 (4.3-11.1) K/mcL Hgb 13.6 14.1 (12.9-16.9) g/dL Hct 38.8 40.0 (37.5-50.1) % Plt Count 50 L 56 L (140-400) K/mcL Neutrophils # 3.4 3.6 (1.6-8.9) K/mcL BMP 06/25/18 06/26/18 21:11 01:02 Sodium 134 L 136 Potassium 3.2 L 3.9 Chloride 106 110 H Carbon Dioxide 18 L 20 L BUN 8 7 Creatinine 0.79 0.70 Glucose 397 H 361 H Calcium 8.9 9.1 Cardiac Enzymes 06/25/18 06/26/18 Range/Units 21:11 01:02 Troponin I < 0.03 < 0.03 (< 0.04) ng/mL Liver Function 06/25/18 06/26/18 Range/Units 21:11 01:02 Total Bilirubin 0.6 0.6 (0.3-1.0) mg/dL Direct Bilirubin 0.1 (0.0-0.2) mg/dL AST 32 36 (13-39) Units/L ALT 66 H 69 H (7-52) Units/L Alkaline Phosphatase 50 54 (34-104) Units/L Albumin 3.5 3.8 (3.5-5.7) g/dL Urine 06/25/18 Range/Units 21:20 Urine Color Yellow (Yellow) Urine Clarity Clear (Clear) Urine pH 5.5 (5.0-8.0) pH Units Ur Specific [place] > 1.030 H (1.010-1.025) Urine Protein Negative (Neg-Trace) mg/dL Urine Glucose (UA) >=1000 H (Normal) mg/dL - ABG Interpretation ABG results: 06/25/18 21:22 VBG pH 7.40 VBG pCO2 29 L VBG pO2 117 H VBG HCO3 18 L - Impressions ITS Impressions Abdomen/Pelvis CTA 06/25/18 20:40 IMPRESSION: 1. No acute aortic pathology. No aneurysm or dissection. Minimal atherosclerotic disease at the aortic bifurcation. No flow limiting stenosis. 2. No acute pulmonary findings. 3. No acute findings within the abdomen or pelvis. 4. Stable mild to moderate splenomegaly. This may be related to portal hypertension with gastric and esophageal varices apparent on previous CT of the abdomen. D/ : / 06/25/2018 21:48:04 José Miguel Albert MD / Shari Zhang Interpreting Provider: José Miguel Albert MD Chest CTA 06/25/18 20:40 IMPRESSION: 1. No acute aortic pathology. No aneurysm or dissection. Minimal atherosclerotic disease at the aortic bifurcation. No flow limiting stenosis. 2. No acute pulmonary findings. 3. No acute findings within the abdomen or pelvis. 4. Stable mild to moderate splenomegaly. This may be related to portal hypertension with gastric and esophageal varices apparent on previous CT of the abdomen. D/ / 06/25/2018 21:48:04 José Miguel Albert MD / Shari troncoso Interpreting Provider: José Miguel Albert MD Head CT 06/25/18 20:40 IMPRESSION: No acute intracranial abnormality. D/ / David Gage MD / David Gage MD Interpreting Provider: David Gage MD - Assessment and plan (1) Thrombocytopenia Current Visit: Yes Status: Chronic (2) Cirrhosis Current Visit: Yes Status: Chronic Qualifiers: Hepatic cirrhosis type: alcoholic cirrhosis Ascites presence: unspecified Qualified Code(s): K70.30 - Alcoholic cirrhosis of liver without ascites (3) Generalized seizure Current Visit: Yes Status: Acute (4) Hepatic encephalopathy Current Visit: Yes Status: Acute (5) Seizure disorder Current Visit: Yes Status: Chronic (6) DVT prophylaxis Current Visit: Yes Status: Acute - Time Spent With Patient Total time spent is greater than 50% in coordination of care (as documented) at patient's floor/unit and/or counseling patient: - Attending Attestation I performed a history and physical examination of the patient and discussed my documented findings with the resident. I reviewed the resident's note and agree with assessment and plan of care.
[2018-06-26 01:41] LABS: Alanine Aminotransferase 69 Units/L (7-52); Albumin 3.8 g/dL (3.5-5.7); Albumin/Globulin Ratio 1.6 (1.1-2.2); Alkaline Phosphatase 54 Units/L (34-104); Aspartate Amino Transferase 36 Units/L (13-39); BUN/Creatinine Ratio 10 (6-26); Bilirubin,Total 0.6 mg/dL (0.3-1.0); Blood Urea Nitrogen 7 mg/dL (6-20); Calcium 9.1 mg/dL (8.6-10.3); Carbon Dioxide 20 mEq/L (23-29); Chloride 110 mEq/L (98-107); Globulin 2.4 g/dL (2.4-3.5); Glucose 361 mg/dL (70-105); Magnesium 1.9 mg/dL (1.6-2.6); Osmolality,Calculated 295 (280-300); Potassium 3.9 mEq/L (3.5-5.1); Sodium 136 mEq/L (136-145); Total Protein 6.2 g/dL (6.4-8.9); eGFR For Non-African Americans > 60 (> 60)
[2018-06-26] MEDS: 0.9 % Sodium Chloride 1,000 ML IVC SCH ×2 (02:02→15:58)
[2018-06-26 02:04] LABS: Platelet Count 56 K/mcL (140-400)
[2018-06-26 02:32] LABS: Troponin I < 0.03 ng/mL (< 0.04)
[2018-06-26] MEDS: Ibuprofen 400 MG TABLET PO PRN ×2 (05:31→22:16)
[2018-06-26] MEDS ORDERED: *HR* Heparin 5,000 UNIT/ML VIAL SQ SCH (06:00)
[2018-06-26] MEDS ORDERED: *HR* Dextrose 50 % in Water (Syg) 50 ML SYRINGE IVP PRN (06:41)
[2018-06-26] MEDS ORDERED: D5% in Water 1,000 ML IVC PRN (06:41)
[2018-06-26] MEDS ORDERED: Dextrose Gel 15 GM/37.5 ML TUBE PO PRN ×2 (06:41)
[2018-06-26] MEDS: Thiamine (B-1) 100 MG TABLET PO SCH (09:07)
[2018-06-26] MEDS: Folic Acid 1 MG TABLET PO SCH (09:07)
[2018-06-26] MEDS: Insulin LISPRO 300 UNITS/3 ML VIAL SQ SCH ×3 (09:08→17:14)
--- NOTE | 2018-06-26 14:07 | Event Note ---
Date of Encounter: 06/26/18 Time of Encounter: 14:07 Patient seen and examined at bedside. Alert and oriented 3. Wants to go home. Denies any tingling numbness or any further episodes of seizures. Complains of left upper quadrant pain. Denies any bowel or bladder complaints. Exam Constitutional: Vitals as noted. Conversant. No Apparent Distress. Eyes : Sclera white, conjunctiva clear, no lid lag, PEARLA. ENT : Grossly normal hearing. Oropharyngeal exam unremarkable. Moist mucus mem branes. No JVD, no cervical lymphadenopathy. no thyromegaly or mass. Respiratory : Clear to auscultation bilaterally. No accessory muscle use, rales, rhonchi or wheezes Cardiovascular : RRR, +S1, +S2. no murmur, gallop, rubs. No chest wall tenderness GI/Abdominal : Soft, Tenderness on LUQ and back on Left. Non-distended, normal bowel sounds, no peritoneal signs. Musculoskeletal: no deformity noted. no edema or cyanosis. warm extremities, pulses palpable and symmetrical in UE/LE. no calf tenderness. Neurological: AO X3, CN II-XII grossly intact, grossly normal motor and sensory exam. Skin: No skin rash, lesions or ulcers noted. Pych: Memory not intact for the event, AOx3. Assessment 1 altered mental status 2 liver cirrhosis 3 thrombocytopenia 4 esophageal and gastric varices 5 mild to moderate splenomegaly 6 history of stroke in his 20s 7 uncontrolled diabetes 8 hypertension 9 asthma 10 smoker 11 Lactic acidosis 12 h/o portal vein thrombosis Plan - Unclear whether episode of seizure versus TIA versus hepatic encephalopathy vs metformin toxicity. Head CT unremarkable. On topamax for seizure disorder. Was being followed at [facility]. Currently appear back to baseline without any focal deficits. Follow-up MRI. Neurology consulted. Had elevated ammonia in ER and received lactulose but has not had BM still. - History of liver cirrhosis. Denies previous history of encephalopathy. Patient does not appear to be on any medication to prevent hepatic encephalopathy. Was being followed up at [facility]. Appears to be unlikely - Thrombocytopenia likely from cirrhosis. No signs of active bleeding monitor for now. - Uncontrolled diabetes. Start Levemir 10 units at bedtime. Continue sliding scale insulin and Accu-Cheks. Hold metformin and Liraglutide - Resume home medication except sumatriptan, metformin, Liraglutide - Lactic acidosis likely related to liver cirrhosis and being on metformin. Patient possibly had metformin toxicity leading to altered mental status. We will discuss with neurology
[2018-06-26] MEDS: Nicotine 21 MG PATCH.TD24 TD SCH (17:09)
[2018-06-26] MEDS ORDERED: Insulin DETEMIR 100 UNIT/ML X5UNITS SQ SCH (21:00)
[2018-06-26] MEDS ORDERED: Insulin LISPRO 300 UNITS/3 ML VIAL SQ SCH (21:00)
[2018-06-27 05:40] LABS: BUN/Creatinine Ratio 12 (6-26); Blood Urea Nitrogen 8 mg/dL (6-20); Calcium 8.4 mg/dL (8.6-10.3); Carbon Dioxide 21 mEq/L (23-29); Chloride 106 mEq/L (98-107); Glucose 398 mg/dL (70-105); Osmolality,Calculated 293 (280-300); Potassium 3.7 mEq/L (3.5-5.1); Sodium 134 mEq/L (136-145); eGFR For Non-African Americans > 60 (> 60)
--- NOTE | 2018-06-27 07:55 | Neurology - Consult Note ---
<José Miguel Bowles - Last Filed: 06/27/18 14:15> Date of Encounter: 06/27/18 Time of Encounter: 07:53 Assessment and Plan (1) Syncope Status: Acute Patient had unresponsive episode at home. He started Imdur ER the same day as the syncopal event. Possible etiology includes vasovagal syncope. Patient is scheduled for a [facility] on 06/29/18. Echo revealed EF 60-65% Patient has been on telemetry monitoring Outpatient follow up Qualifiers: Syncope type: unspecified Qualified Code(s): R55 - Syncope and collapse (2) Migraines Status: Chronic Patient follow up with [facility] Resume home Imitrex and Topamax Qualifiers: Migraine type: with aura Status migrainosus presence: without status migrainosus Intractability: not intractable Qualified Code(s): G43.109 - Migraine with aura, not intractable, without status migrainosus (3) Seizure disorder Status: Chronic Patient sees [facility] neurology for seizure disorder. Family reports he has been compliant with his Topamax at home. Patient's found him on the floor and thought he may be in a postictal state. She called EMS after he did not regain consciousness after several minutes. CT head revealed no acute intracranial abnormality. MRI brain revealed no acute abnormality EEG results pending Continue home dose Topamax. Further recommendations to follow (4) Cirrhosis Status: Chronic Qualifiers: Hepatic cirrhosis type: alcoholic cirrhosis Ascites presence: unspecified Qualified Code(s): K70.30 - Alcoholic cirrhosis of liver without ascites (5) Hepatic encephalopathy Status: Resolved Patient received Ativan and Haldol via EMS secondary to agitation and aggression. Patient had elevated ammonia level and was started on lactulose. Management per primary team. 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 Munoz is a 43 year old male with a past medical history of alcoholic cirrhosis, hypertension, diabetes, CVA with residual left sided weakness, and [facility] follow-up for migraines and seizure disorder who presented after an unresponsive episode at home. Patient's found him on the floor and thought he may be in a postictal state. She called EMS after he did not regain consciousness after several minutes. He received Ativan and Haldol in route secondary to agitation and aggression. Family reports he recently started Imdur ER on Wednesday which ahas worsened his migraines and he has been compliant with his Topamax and Imitrex at home. In the ED, patient had elevated ammonia level and was started on lactulose. He does not remember anything from yesterday and is now A&Ox3. CT head revealed no acute intracranial abnormality. MRI brain was ordered and neurology was consulted for further recommendations. Past Med Surg Social Fam HX - Past Medical History Medical history: asthma, diabetes, hyperlipidemia, hypertension, seizures, TIA Additional medical history: liver cirrhosis. aortic aneurysm Psychiatric history: bipolar - Past Surgical History Surgical History: appendectomy - Social History Smoking Status: Current every day smoker Smokeless Tobacco Status: No Alcohol use: none Drug use: none - Family History Mother History Unknown: Yes Adopted: Yes Father History Unknown: Yes Adopted: Yes Medications and Allergies Amlodipine Besylate 2.5 mg PO HS 09/20/17 [History] Pravastatin Sodium [Pravachol] 40 mg PO HS 09/20/17 [History] Aspirin [Adult Aspirin] 81 mg PO DAILY 06/26/18 [History] Insulin ASPART [NovoLOG] 16 - 18 unit SQ TID MDD SLIDING SCALE 06/26/18 [History] Liraglutide [Victoza 2-Fidencio] 1.2 mg SQ DAILY 06/26/18 [History] Multivit-Min/FA/Lycopen/Lutein [A Thru Z Select Men 50+ Tablet] 1 tab PO DAILY 06/26/18 [History] Nitroglycerin [Nitrostat] 0.4 mg SL Q5M PRN 06/26/18 [History] Omeprazole [PriLOSEC] 40 mg PO DAILY 06/26/18 [History] Quetiapine Fumarate [Seroquel] 50 mg PO HS 06/26/18 [History] SUMAtriptan Succinate [Imitrex] 100 mg PO DAILY PRN 06/26/18 [History] Topiramate [Topamax] 100 mg PO BID 06/26/18 [History] Trazodone HCl 100 mg PO HS 06/26/18 [History] Blood Sugar Diagnostic [Blood Glucose Test Strip] 1 each QID #100 strip 06/27/18 [Rx] Insulin DETEMIR [Levemir] 15 unit SQ HS #1 vial 06/27/18 [Rx] Insulin LISPRO [HumaLOG] See Protocol SQ TIDAC 30 Days #1 vial 06/27/18 [Rx] Lancets [Alternate Site Lancets] 1 each QID #100 each 06/27/18 [Rx] Syringe and Needle,Insulin,1Ml [Insulin Syringe] 1 each QID #100 disp.syrin 06/27/18 [Rx] Allergy/AdvReac Type Severity Reaction Status Date / Time linagliptin [From Tradjenta] Allergy Hives Verified 09/20/17 19:35 terfenadine [From Seldane] Allergy Rash Verified 09/20/17 19:35 All Systems: The remainder of the systems were reviewed and are negative - Constitutional Constitutional ROS IM: fatigue, no chills - Nose, Mouth, Throat Nose, mouth and throat: headache(s), no sinus pressure - Cardiovascular Cardiovascular ROS IM: palpitations, no chest pain - Respiratory Respiratory IM: no cough, no dyspnea - Gastrointestinal Gastrointestinal: no abdominal pain, no diarrhea, no nausea, no vomiting - Genitourinary Genitourinary ROS: no urinary frequency, no urinary urgency - Musculoskeletal Musculoskeletal ROS IM: muscle weakness (chronic left sided weakness), no back pain, no neck pain - Integumentary Integumentary IM: no changing lesions, no new lesions - Neurological Neurological ROS: confusion, headache(s), memory loss, sensory deficit, weakness (chronic left sided weakness), no convulsions - Psychiatric Psychiatric general PM: no anxiety, no depression Physical Examination - Vital Signs Vital Signs: Initial Vital Signs Temp Pulse Resp BP Pulse Ox 99.1 F 161 32 114/65 93 06/25/18 20:22 06/25/18 20:22 06/25/18 20:22 06/25/18 20:22 06/25/18 20:22 - Constitutional General appearance: comfortable - Neurologic Sensorimotor examination: intact (subjective decreased sensation LUE, LLE) Detailed motor examination: full strength in all major muscle groups Motor examination - right side: 5/5: deltoids, biceps, triceps, wrist flexion, wrist extension, lock fitter, hip flexors, tibialis Anterior, quadriceps, toe extension (EHL), plantarflexion Motor examination - left side: 4/5: deltoids, biceps, triceps, wrist flexion, wrist extension, hip flexors, lock fitter, quadriceps, tibialis Anterior, toe extension (EHL), plantarflexion Detailed sensory examination: intact, light touch Reflex and gait examination: intact Reflexes: Biceps: 2+, Triceps: 2+, Brachioradialis: 2+, Patella: 2+, Achilles: 2 + Mental Status Examination: awake, alert, oriented to person, oriented to place, oriented to time, follows commands appropriately, answers questions appropriately, no agnosia, no aphasia, no aproxia Cranial nerve examination: PERRL, EOMI, visual gunn intact, sensory to face intact, mastication intact, no facial asymmetry is present, no dysarthria, hearing is intact symmetrically, flexes SCM and trapezius muscles symmetrically with full power, tongue protrudes midline, no atrophy or facial fasiculations present Cerebellar examination: no dysmetria, performs finger to nose and heel to hong symmetrically without ataxia (slight difficulty on left compared to right), no gait ataxia, no truncal ataxia, no difficulty with rapid alternating movements Results - Laboratory Findings CBC and BMP: 06/26/18 01:02 06/27/18 05:07 Abnormal lab findings: Abnormal lab results Plt Count 56 K/mcL (140-400) L 06/26/18 01:02 PT 15.2 Seconds (9.4-12.1) H 06/25/18 21:03 VBG pCO2 29 mmHg (41-51) L 06/25/18 21:22 VBG pO2 117 mmHg (25-50) H 06/25/18 21:22 VBG HCO3 18 mEq/L (21-27) L 06/25/18 21:22 Sodium 134 mEq/L (136-145) L 06/27/18 05:07 Carbon Dioxide 21 mEq/L (23-29) L 06/27/18 05:07 Creatinine 0.66 mg/dL (0.70-1.30) L 06/27/18 05:07 Glucose 398 mg/dL (70-105) H 06/27/18 05:07 POC Glucose 379 mg/dL (70-99) H 06/27/18 07:04 Calcium 8.4 mg/dL (8.6-10.3) L 06/27/18 05:07 ALT 69 Units/L (7-52) H 06/26/18 01:02 Ammonia 63 mcmol/L (16-53) H 06/25/18 21:11 Serum Total Protein 6.2 g/dL (6.4-8.9) L 06/26/18 01:02 Ur Specific Mystic > 1.030 (1.010-1.025) H 06/25/18 21:20 Urine Glucose (UA) >=1000 mg/dL (Normal) H 06/25/18 21:20 Salicylates < 2.5 mg/dL (15.0-30.0) L 06/25/18 21:11 Acetaminophen < 10 mcg/mL (10-20) L 06/25/18 21:11 U Benzodiazepines Scrn Positive ng/mL (Zoghwb=354) H 06/25/18 21:20 - Diagnostic Findings Additional findings: ITS Impressions Abdomen/Pelvis CTA 06/25/18 20:40 IMPRESSION: 1. No acute aortic pathology. No aneurysm or dissection. Minimal atherosclerotic disease at the aortic bifurcation. No flow limiting stenosis. 2. No acute pulmonary findings. 3. No acute findings within the abdomen or pelvis. 4. Stable mild to moderate splenomegaly. This may be related to portal hypertension with gastric and esophageal varices apparent on previous CT of the abdomen. D/ /25/2018 21:48:04 José Miguel Albert MD / Shari Zhang Interpreting Provider: José Miguel Albert MD Chest CTA 06/25/18 20:40 IMPRESSION: 1. No acute aortic pathology. No aneurysm or dissection. Minimal atherosclerotic disease at the aortic bifurcation. No flow limiting stenosis. 2. No acute pulmonary findings. 3. No acute findings within the abdomen or pelvis. 4. Stable mild to moderate splenomegaly. This may be related to portal hypertension with gastric and esophageal varices apparent on previous CT of the abdomen. D/ /25/2018 21:48:04 José Miguel Albert MD / Shari Zhang Interpreting Provider: José Miguel Albert MD Head CT 06/25/18 20:40 IMPRESSION: No acute intracranial abnormality. D/ / David Gage MD / David Gage MD Interpreting Provider: David Gage MD Consult Discharge Plan - Plan Instructions: Insulin Detemir (Injection), Diabetes Mellitus Type 2 in Adults (DC) Referrals: José Miguel Kelsey MD [Primary Care Provider] - 07/04/18 1:00 pm Prescriptions: Blood Sugar Diagnostic [Blood Glucose Test Strip] 1 each MC QID #100 strip Insulin DETEMIR [Levemir] 15 unit SQ HS #1 vial Insulin LISPRO [HumaLOG] See Protocol SQ TIDAC 30 Days #1 vial Lancets [Alternate Site Lancets] 1 each MC QID #100 each Syringe and Needle,Insulin,1Ml [Insulin Syringe] 1 each MC QID #100 disp.syrin <Antionette Lennon I - Last Filed: 06/27/18 15:56> Date of Encounter: 06/27/18 Assessment and Plan (1) Seizure disorder Status: Chronic Pt was seen and examined, my medical decision was reviewed with the Resident Physician, I agree with the documented findings, disposition and treatment plas as described except to the extent set forth below. seems to be back to his baseline no focal findings on his examination, No evidence of a stroke on his MRI of the brain EEG also did not show any abnormal seizure activity Possible that he could have a breakthrough seizure suggest to continue on his current dose of Topamax may need adjustment of his medication Suggest follow-up with his neurologist at [facility] Antionette Lennon MD History of Present Illness HPI: Mr. Munoz is a 43 year old male All Systems: The remainder of the systems were reviewed and are negative Physical Examination - Vital Signs Vital Signs: Initial Vital Signs Temp Pulse Resp BP Pulse Ox 99.1 F 161 32 114/65 93 06/25/18 20:22 06/25/18 20:22 06/25/18 20:22 06/25/18 20:22 06/25/18 20:22 - Exam Exam: GENERAL: Comfortable in no acute distress HEENT: Normal LUNGS: CTA HEART: RRR, S1 S2 Audible, no murmur EXTREMITIES: No Pedal edema. DETAILED NEUROLOGICAL EXAMINATION: MENTAL STATUS: Oriented to person, place, date and situation. Memory: knows the President, Aware of recent events Recent Memory Intact, Attention span is normal Cranial Nerve Examination: CN - II: Visual Acuity, Field of Vision Normal, Fundus examination: No disk edema, Pupils- size shape reaction to light and accommodation: All normal. CN III, IV, : External ocular movements were intact, Pupils were reactive, Nodrooping of the eyelids CN V: Sensation over the face to light touch and pinprick all normal. Corneal reflexes not tested, jaw jerk normal. CN VII: No facial asymmetry, no flattening of nasolabial folds, no difficulty in closing the eyes, no loss of forehead wrinkles, no difficulty in eye-closure, frowning raising eyebrows. CNVIII: No significant hearing loss CN IX, X: Uvula centralized not deviated, Gag reflex: Not tested CN X1: Sternocleidomastoid, trapezius, normal or evidence of any weakness. CN X11: No Dysarthria, no wasting or fibrilation f tongue muscles, no deviation, tongue muscle strength normal. - Constitutional General appearance: comfortable Results - Laboratory Findings CBC and BMP: 06/26/18 01:02 06/27/18 05:07 Abnormal lab findings: Abnormal lab results Plt Count 56 K/mcL (140-400) L 06/26/18 01:02 PT 15.2 Seconds (9.4-12.1) H 06/25/18 21:03 VBG pCO2 29 mmHg (41-51) L 06/25/18 21:22 VBG pO2 117 mmHg (25-50) H 06/25/18 21:22 VBG HCO3 18 mEq/L (21-27) L 06/25/18 21:22 Sodium 134 mEq/L (136-145) L 06/27/18 05:07 Carbon Dioxide 21 mEq/L (23-29) L 06/27/18 05:07 Creatinine 0.66 mg/dL (0.70-1.30) L 06/27/18 05:07 Glucose 398 mg/dL (70-105) H 06/27/18 05:07 POC Glucose 268 mg/dL (70-99) H 06/27/18 11:13 Calcium 8.4 mg/dL (8.6-10.3) L 06/27/18 05:07 ALT 69 Units/L (7-52) H 06/26/18 01:02 Ammonia 63 mcmol/L (16-53) H 06/25/18 21:11 Serum Total Protein 6.2 g/dL (6.4-8.9) L 06/26/18 01:02 Ur Specific Mystic > 1.030 (1.010-1.025) H 06/25/18 21:20 Urine Glucose (UA) >=1000 mg/dL (Normal) H 06/25/18 21:20 Salicylates < 2.5 mg/dL (15.0-30.0) L 06/25/18 21:11 Acetaminophen < 10 mcg/mL (10-20) L 06/25/18 21:11 U Benzodiazepines Scrn Positive ng/mL (Gpfnfy=393) H 06/25/18 21:20
[2018-06-27] MEDS: Insulin LISPRO 300 UNITS/3 ML VIAL SQ SCH ×2 (07:59→11:59)
[2018-06-27] MEDS: Thiamine (B-1) 100 MG TABLET PO SCH (08:00)
[2018-06-27] MEDS: Nicotine 21 MG PATCH.TD24 TD SCH (08:00)
[2018-06-27] MEDS: Folic Acid 1 MG TABLET PO SCH (08:00)
[2018-06-27] MEDS ORDERED: Isosorbide MONOnitrate (24 HR) 30 MG TAB.ER.24H PO SCH (11:00)
[2018-06-27] MEDS ORDERED: Aspirin Enteric Coated 81 MG Tablet PO SCH (11:00)
[2018-06-27 11:14] VITALS: BP 146/92
[2018-06-27] MEDS ORDERED: Topiramate 100 MG TABLET PO SCH (11:15)
[2018-06-27] MEDS ORDERED: SUMAtriptan succinate 50 MG TABLET PO PRN (13:55)
--- NOTE | 2018-06-27 14:24 | Discharge Summary ---
- NOTES TO OUTPATIENT PROVIDER Notes to Outpatient Provider: This metformin is stopped and started on insulin Levemir and sliding scale. We will need follow-up with [facility] neurology. Orders not resulted at time of discharge: Pending orders 06/25/18 21:11 Culture,Blood [BC] Stat Date of Encounter: 06/27/18 Time of Encounter: 14:23 - Discharge Diagnosis (1) Thrombocytopenia Priority: Secondary Status: Chronic (2) Cirrhosis Priority: Secondary Status: Chronic Qualifiers: Qualified Code(s): K70.30 - Alcoholic cirrhosis of liver without ascites (3) Generalized seizure Priority: Primary Status: Acute (4) Hepatic encephalopathy Priority: Secondary Status: Acute (5) Seizure disorder Priority: Secondary Status: Chronic (6) DVT prophylaxis Priority: Secondary Status: Acute Hospital course: Mr. Munoz is a 43 year old male past medical history of cirrhosis, asthma, diabetes, hypertension, seizure disorder and previous TIA/stroke was found unresponsive at home. Patient was given Ativan in ED with history of alcohol abuse the patient was agitated and received Haldol and Ativan in ER. Patient was admitted for altered mental status from possible seizures versus hepatic encephalopathy. Patient was also noted to have a lactic acidosis. Patient was managed with IV fluids and received lactulose for elevated ammonia levels. Patient improved Today. Patient's diabetes was significantly uncontrolled. Patient's head CT was unremarkable. Patient had CTA of the chest abdomen pelvis. which did not show any significant abnormality except mild to moderate splenomegaly. Neurology was consulted we will obtain MRI as well as EEG. MRI was unremarkable. EEG results are pending Patient was cleared by neurology to be discharged with the unclear reason for his presenting complaints. Patient would be discharged to continue his home anti-seizure medication. We will hold his metformin with possibility of metformin toxicity given his liver disease and lactic acidosis . We will also start his isosorbide dinitrate which was started recently with the possibility that he might have of low blood pressure. Discharge discussed with: patient, family, nurse, social work, managing consultant - Time Spent with Patient Total time spent providing and/or coordinating discharge services: Greater than 30 minutes (38) - Discharge Medications Prescriptions: Insulin DETEMIR [Levemir] 15 unit SQ HS #1 vial Home Medications: Amlodipine Besylate 2.5 mg PO HS 09/20/17 [History] Pravastatin Sodium [Pravachol] 40 mg PO HS 09/20/17 [History] Aspirin [Adult Aspirin] 81 mg PO DAILY 06/26/18 [History] Insulin ASPART [NovoLOG] 16 - 18 unit SQ TID MDD SLIDING SCALE 06/26/18 [History] Liraglutide [Victoza 2-Fidencio] 1.2 mg SQ DAILY 06/26/18 [History] Multivit-Min/FA/Lycopen/Lutein [A Thru Z Select Men 50+ Tablet] 1 tab PO DAILY 06/26/18 [History] Nitroglycerin [Nitrostat] 0.4 mg SL Q5M PRN 06/26/18 [History] Omeprazole [PriLOSEC] 40 mg PO DAILY 06/26/18 [History] Quetiapine Fumarate [Seroquel] 50 mg PO HS 06/26/18 [History] SUMAtriptan Succinate [Imitrex] 100 mg PO DAILY PRN 06/26/18 [History] Topiramate [Topamax] 100 mg PO BID 06/26/18 [History] Trazodone HCl 100 mg PO HS 06/26/18 [History] Insulin DETEMIR [Levemir] 15 unit SQ HS #1 vial 06/27/18 [Rx] Allergies/Adverse Reactions: Allergy/AdvReac Type Severity Reaction Status Date / Time linagliptin [From Tradjenta] Allergy Hives Verified 09/20/17 19:35 terfenadine [From Seldane] Allergy Rash Verified 09/20/17 19:35 Date of admission: 06/25/18 22:39 Primary care physician: José Miguel Kelsey MD Consults: 06/26/18 03:57 Consult to Neurology [CONS] Routine Consulting Provider: Neurology [facility] Reason for Consult: History of seizures, follows with a neurologist at [facility]. Presented for AMS, unclear if seizure related or TIA. Call Completed: No 06/27/18 11:24 Consult to Interpret Exam [CONS] Routine Consulting Provider: Antionette Lennon I Consult to Interpret Exam: Interpret EEG Discharging clinician: Kinza Martínez - Constitutional Vitals: Temp Pulse Resp BP Pulse Ox 97.4 F L 83 17 146/92 97 06/27/18 04:21 06/27/18 11:10 06/27/18 04:21 06/27/18 11:10 06/27/18 04:21 Exam: Constitutional: Vitals as noted. Conversant. No Apparent Distress. Eyes : Sclera white, conjunctiva clear, no lid lag, PEARLA. ENT : Grossly normal hearing. Oropharyngeal exam unremarkable. Moist mucus membranes. No JVD, no cervical lymphadenopathy. no thyromegaly or mass. Respiratory : Clear to auscultation bilaterally. No accessory muscle use, rales, rhonchi or wheezes Cardiovascular : RRR, +S1, +S2. no murmur, gallop, rubs. No chest wall tenderness GI/Abdominal : Soft, Tenderness on LUQ and back on Left. Non-distended, normal bowel sounds, no peritoneal signs. Musculoskeletal: no deformity noted. no edema or cyanosis. warm extremities, pulses palpable and symmetrical in UE/LE. no calf tenderness. Neurological: AO X3, CN II-XII grossly intact, grossly normal motor and sensory exam. Skin: No skin rash, lesions or ulcers noted. Pych: Memory not intact for the event, AOx3. - Patient Status Disposition: Home, Self-Care Condition: Fair - Discharge Instructions Follow Up With: José Miguel Kelsey MD [Primary Care Provider] - - Diet and Activity Activity: increase activity as tolerated
--- NOTE | 2018-06-27 17:09 | Electrocardiograph Report ---
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
[2018-06-27] MEDS ORDERED: traZODone 50 MG TABLET PO SCH (21:00)
--- NOTE | 2018-06-28 10:57 | EEG/EMG/Oth Biometrics Report ---
EEG Procedure Report Date of procedure: 06/27/18 EEG Procedure: Routine EEG Procedure Note: This is a routine 21 channel digital EEG performed utilizing 10- 20 international electrode placement system. FINDINGS: Patient has a predominant waking background frequency that is average voltage 8 to 10 Hertz alpha activity in the posterior region, normal amplitude symmetrical over the both hemispheres reactive to eyes opening and closing record continued to show alpha activity intermixed with some theta off and on, no abnormal activity recorded, predominantly no evidence of any spike wave discharges or any lateralizing abnormalities, Photic stimulation and hyperventilation did not produce any convulsive response. Intermittent EMG artifacts were noted. Stage II sleep was not achieved. Impression: Normal awake drowsy electroencephalogram. No epileptiform discharges or any other paroxysmal activities noted. ( Please note that normal EEG does not exclude the diagnosis of seizures or epilepsy, clinical correlation is suggested)
== END 2018-06-27 15:52 | disposition home or self-care (01) | DRG 101 ==
LOC: EMEROOARM 20:20 → 2NENU 20:20 → SUATTDRO 22:39 → OBSVTOIN 22:39 → 2NENU 06-26 01:00
PROVIDERS: ADMIT Internal Medicine; ATTEND Internal Medicine

== ENCOUNTER 2019-03-29 17:27 | Inpatient (IN) ==
[2019-03-29] MEDS ORDERED: 0.9 % Sodium Chloride 1,000 ML IVC ONE ×2 (17:42→20:42)
--- NOTE | 2019-03-29 17:42 | Emergency Department Note ---
Disposition Clinical Impression: Seizure, Agitation, Hyperglycemia Pneumonia Qualifiers: Pneumonia type: due to unspecified organism Laterality: bilateral Lung location: unspecified part of lung Qualified Code(s): J18.9 - Pneumonia, unspecified organism Disposition: Admitted As Inpatient Condition: Good Referrals: José Miguel Kelsey MD [Primary Care Provider] - Forms: ED Satisfaction Letter Time of Disposition: 00:34 General Adult HPI - General Chief complaint: ED Seizure Stated complaint: Seizure Time Seen by Provider: 03/29/19 17:41 Nursing Notes Reviewed: Yes Vital Signs Reviewed: Yes - History of Present Illness HPI Narrative: 43-year-old male presents emergency department after having a seizure. Patient has not had a seizure in a couple of weeks per . Patient currently is postictal per . He was complaining of abdominal pain earlier today. He has history of alcoholic liver cirrhosis. reports that patient has history of alcoholic liver cirrhosis, but has not consumed any alcohol in several years. Had a previous visit before where he became extremely agitated. CT scan of the abdomen and pelvis revealed concern for atelectasis versus superimposed infiltrate. Abdomen/Pelvis CT 03/29/19 17:44 IMPRESSION: 1. Dependent consolidative changes at the lung bases bilaterally, right greater than left. Findings may reflect atelectasis, however, superimposed infiltrate not entirely excluded. 2. Nonspecific stranding within the retroperitoneum and adjacent to the gallbladder and also extending along the bilateral pericolic gutters and within the presacral soft tissues. There is a small amount of intra-abdominal fluid. Previous contrast enhanced exam demonstrated partial thrombosis of the portal vein with clot extending into the SMV and splenic vein on CT from September 20, 2017. Findings potentially may be related to secondary congestion related to thrombus. The vascular structures are not evaluated on this noncontrast exam. 3. Redemonstration of mild pattern splenomegaly. 4. No evidence for bowel obstruction. Question mild bowel wall thickening. The bowel wall is not well evaluated on this noncontrast exam. D/ / Rolando Farrell MD / Rolando Farrell MD Interpreting Provider: Rolando Farrell MD Chest X-Ray 03/29/19 17:47 IMPRESSION: Negative portable study. D/ / Lorie Walters Cha, MD / Lorie Walters Cha, MD Interpreting Provider: Lorie Walters Cha, MD Head CT 03/29/19 19:02 IMPRESSION: No acute intracranial abnormality. D/ / 03/29/2019 21:33:12 Avel Hernandez / Shari Zhang Interpreting Provider: Avel Hernandez Abdomen/Pelvis CTA 03/29/19 21:50 IMPRESSION: 1. No acute aortic pathology. Mild atherosclerotic plaque. No visceral stenosis. 2. Cirrhosis with portal hypertension including splenomegaly and varices. However, the SMV and portal vein thrombosis noted on previous imaging is not evaluated. 3. Redemonstration of infiltration of the retroperitoneal soft tissues, particularly along the distribution of the DALIA. I believe this is likely related to the patient's portal hypertension. I would recommend a short interval follow-up CT in 3 months time. At this time, imaging should be performed during the portal venous phase. 4. Otherwise stable CT of the abdomen and pelvis. D/ / José Miguel Albert MD / José Miguel Albert MD Interpreting Provider: José Miguel Albert MD Pain Scale: 0 - Related Data Home Medications Medication Instructions Recorded Confirmed Amlodipine Besylate 2.5 mg PO HS 09/20/17 06/29/18 Pravastatin Sodium [Pravachol] 40 mg PO HS 09/20/17 06/29/18 Aspirin [Adult Aspirin] 81 mg PO DAILY 06/26/18 06/29/18 Insulin ASPART [NovoLOG] 16 - 18 unit SQ TID MDD SLIDING 06/26/18 06/29/18 SCALE Liraglutide [Victoza 2-Fidencio] 1.2 mg SQ DAILY 06/26/18 06/29/18 Multivit-Min/FA/Lycopen/Lutein [A 1 tab PO DAILY 06/26/18 06/29/18 Thru Z Select Men 50+ Tablet] Nitroglycerin [Nitrostat] 0.4 mg SL Q5M PRN 06/26/18 06/29/18 Omeprazole [PriLOSEC] 40 mg PO DAILY 06/26/18 06/29/18 Quetiapine Fumarate [Seroquel] 50 mg PO HS 06/26/18 06/29/18 SUMAtriptan Succinate [Imitrex] 100 mg PO DAILY PRN 06/26/18 06/29/18 Topiramate [Topamax] 100 mg PO BID 06/26/18 06/29/18 Trazodone HCl 100 mg PO HS 06/26/18 06/29/18 Previous Rx's Medication Instructions Recorded Insulin DETEMIR [Levemir] 15 unit SQ HS #1 vial 06/27/18 Allergies Allergy/AdvReac Type Severity Reaction Status Date / Time linagliptin [From Tradjenta] Allergy Hives Verified 03/29/19 20:31 terfenadine [From Seldane] Allergy Rash Verified 03/29/19 20:31 Varenicline [From Chantix] AdvReac Agitated Verified 03/29/19 20:31 All systems ED: reviewed and negative except as stated. Review of Systems: As Per HPI Limitations: ROS unobtainable due to patients medical condition (Review of systems obtained per ) Constitutional: Denies: fever Cardiovascular: Denies: chest pain Respiratory: Denies: dyspnea Gastrointestinal: Reports: abdominal pain. Denies: nausea, vomiting, diarrhea, constipation Genitourinary: Denies: urgency, dysuria, frequency Musculoskeletal: Denies: back pain Past Medical History - Past Medical History Attestation: Yes The following information was validated with the patient. Medical history: Reports: asthma, diabetes, GERD, hyperlipidemia, hypertension, seizures, TIA Surgical history: Reports: appendectomy Psychiatric history: Reports: bipolar - Social History Smoking Status: Current every day smoker Smokeless Tobacco Status: No Alcohol use: Reports: none Drug use: Reports: none Physical Exam - General Limitations: no limitations General appearance: lethargic - Head Head exam: normocephalic - Eye Eye exam: Present: EOMI. Absent: scleral icterus - ENT ENT exam: mucous membranes moist - Neck Neck exam: Present: trachea midline - Chest Chest inspection: Present: symmetric chest wall rise - Respiratory Respiratory exam: Present: normal lung sounds bilaterally. Absent: respiratory distress, accessory muscle use - Cardiovascular Cardiovascular exam: Present: normal rhythm, tachycardia, normal heart sounds - Abdominal Exam Abdominal exam: Present: soft, tenderness. Absent: distention, guarding, rebound, rigidity Abdominal tenderness: Present: diffuse, moderate - Extremities Exam Extremities exam: Present: normal capillary refill - Back Exam Back exam: Present: full ROM - Neurological Exam Neurological exam: Present: other (post-ictal) - Psychiatric Psychiatric exam: Present: agitated - Skin Skin exam: Present: warm, dry, intact, normal color. Absent: rash Course Vital Signs Temperature 98.6 F 03/29/19 17:34 Pulse Rate 125 03/29/19 17:34 Respiratory Rate 19 03/29/19 17:34 Blood Pressure 178/94 03/29/19 17:34 O2 Sat by Pulse Oximetry 96 03/29/19 17:34 Temperature 98.6 F 03/29/19 17:34 Pulse Rate 102 03/30/19 00:25 Respiratory Rate 20 03/30/19 00:25 Blood Pressure 118/71 03/30/19 00:25 O2 Sat by Pulse Oximetry 98 03/30/19 00:25 Oxygen Delivery Oxygen Delivery Room Air Medical Decision Making - MDM Narrative Medical decision making narrative: 43 year old male appearing post-ictal initially. After patient stopped being post-ictal, he became very agitated. Patient required multiple doses of ativan totaling 6 mg IV he was also given 5 mg ov Versed Patient currently maintaining his airway. Patient calmed down, was placed on end tidal CO2. CT scan of the head was within normal limits. Glucose was elevated at 489. VBG does not reveal any evidence of acidosis. No ketones. Obtain CT scan of abdomen and pelvis which revealed concern for possible atelectasis versus pneumonia. We will give Rocephin and azithromycin here in the emergency department. Patient was given 2 Liters of fluid in the ED. We have started him on 125ml/hr maintenance. After several hours of observation, patient started to become very agitated and violent. After worse, and he laid in the back of the bed and started having quick twitching eye movements for approximately 30 seconds before it cessated. Patient started to become agitated and violent again. Patient was then given a nother 2 mg of Ativan as well as 5 mg of Versed. Patient no longer violent in the emergency department as he is sedated. He is still protecting his airway. I spoke with the hospitalist who requests to speak to neurology. I spoke with Dr. Lennon who stated to start Her on the patient. He patient was provided 1 g IV. There was recommendation to place patient on CIWA protocol. There is also recommendation to give patient Keppra 500 mg twice daily. Abdomen/Pelvis CT 03/29/19 17:44 IMPRESSION: 1. Dependent consolidative changes at the lung bases bilaterally, right greater than left. Findings may reflect atelectasis, however, superimposed infiltrate not entirely excluded. 2. Nonspecific stranding within the retroperitoneum and adjacent to the gallbladder and also extending along the bilateral pericolic gutters and within the presacral soft tissues. There is a small amount of intra-abdominal fluid. Previous contrast enhanced exam demonstrated partial thrombosis of the portal vein with clot extending into the SMV and splenic vein on CT from September 20, 2017. Findings potentially may be related to secondary congestion related to thrombus. The vascular structures are not evaluated on this noncontrast exam. 3. Redemonstration of mild pattern splenomegaly. 4. No evidence for bowel obstruction. Question mild bowel wall thickening. The bowel wall is not well evaluated on this noncontrast exam. D/ / Rolando Farrell MD / Rolando Farrell MD Interpreting Provider: Rolando Farrell MD Chest X-Ray 03/29/19 17:47 IMPRESSION: Negative portable study. D/ / Lorie Walters Cha, MD / Lorie Walters Cha, MD Interpreting Provider: Lorie Walters Cha, MD Head CT 03/29/19 19:02 IMPRESSION: No acute intracranial abnormality. D/ / 03/29/2019 21:33:12 Avel Hernandez / Shari Zhang Interpreting Provider: Avel Hernandez Abdomen/Pelvis CTA 03/29/19 21:50 IMPRESSION: 1. No acute aortic pathology. Mild atherosclerotic plaque. No visceral stenosis. 2. Cirrhosis with portal hypertension including splenomegaly and varices. However, the SMV and portal vein thrombosis noted on previous imaging is not evaluated. 3. Redemonstration of infiltration of the retroperitoneal soft tissues, particularly along the distribution of the DALIA. I believe this is likely related to the patient's portal hypertension. I would recommend a short interval follow-up CT in 3 months time. At this time, imaging should be performed during the portal venous phase. 4. Otherwise stable CT of the abdomen and pelvis. D/ / José Miguel Albert MD / José Miguel Albert MD Interpreting Provider: José Miguel Albert MD - Lab Data Result diagrams: 03/29/19 19:20 03/29/19 19:20 Lab Results 03/29/19 03/29/19 03/29/19 Range/Units 17:39 17:41 19:20 WBC 4.5 (4.3-11.1) K/mcL RBC 4.68 (4.19-5.50) M/mcL Hgb 14.2 (12.9-16.9) g/dL Hct 40.5 (37.5-50.1) % MCV 86.5 (83.0-100.0) fL MCH 30.3 (28.0-33.3) pg MCHC 35.1 (31.6-35.5) g/dL RDW 12.7 (11.5-14.5) % Plt Count 49 L (140-400) K/mcL MPV 11.1 (9.4-12.4) fL Immature Gran % 0.4 (0-4) % Seg Neutrophils % 73.1 % Lymphocytes % 15.0 % Monocytes % 9.3 % Eosinophils % 1.5 % Basophils % 0.7 % Neutrophils # 3.3 (1.6-8.9) K/mcL Lymphocytes # 0.7 (0.6-4.6) K/mcL Monocytes # 0.4 (0.0-1.3) K/mcL Eosinophils # 0.1 (0.0-0.6) K/mcL Basophils # 0.0 (0.0-0.2) K/mcL Platelet Estimate Decreased L (Normal) Immature Plt Fraction 7.8 H (1.1-6.1) % PT (9.4-12.1) Seconds INR VBG pH (7.32-7.42) pH Units VBG pCO2 (41-51) mmHg VBG pO2 (25-50) mmHg VBG HCO3 (21-27) mEq/L Sodium (136-145) mEq/L Potassium (3.5-5.1) mEq/L Chloride (98-107) mEq/L Carbon Dioxide (23-29) mEq/L BUN (6-20) mg/dL Creatinine (0.70-1.30) mg/dL Est GFR ( Amer) (> 60) Est GFR (Non-Af Amer) (> 60) BUN/Creatinine Ratio (6-26) Glucose (70-105) mg/dL POC Glucose 462 H* 489 H* (70-99) mg/dL Calculated Osmolality (280-300) Calcium (8.6-10.3) mg/dL Total Bilirubin (0.3-1.0) mg/dL AST (13-39) Units/L ALT (7-52) Units/L Alkaline Phosphatase (34-104) Units/L Ammonia (16-53) mcmol/L Serum Total Protein (6.4-8.9) g/dL Albumin (3.5-5.7) g/dL Globulin (2.4-3.5) g/dL Albumin/Globulin Ratio (1.1-2.2) Lipase (11-82) Units/L Beta-Hydroxybutyric Acd (0.02-0.27) mmol/L Urine Color (Yellow) Urine Clarity (Clear) Urine pH (5.0-8.0) pH Units Ur Specific [place] (1.010-1.025) Urine Protein (Neg-Trace) mg/dL Urine Glucose (UA) (Normal) mg/dL Urine Ketones (Negative) mg/dL Urine Blood (Negative) Urine Nitrite (Negative) Urine Bilirubin (Negative) Urine Urobilinogen (Normal) mg/dL Ur Leukocyte Esterase (Negative) Ur Culture Indicated? (NO) Salicylates (15.0-30.0) mg/dL Urine Opiates Screen (Ynvswt=528) ng/mL Ur Buprenorphine Scrn (Cutoff=5) ng/mL Acetaminophen (10-20) mcg/mL Ur Barbiturates Screen (Iarjod=151) ng/mL Ur Phencyclidine Scrn (Cutoff=25) ng/mL Ur Amphetamines Screen (Ncqccf=7809) ng/mL U Benzodiazepines Scrn (Zhfcrb=496) ng/mL Urine Cocaine Screen (Cutoff= 300) ng/mL U Marijuana (THC) Screen (Cutoff = 50) ng/mL Ur Drug Screen Interp 03/29/19 03/29/19 03/29/19 Range/Units 19:20 19:20 19:20 WBC (4.3-11.1) K/mcL RBC (4.19-5.50) M/mcL Hgb (12.9-16.9) g/dL Hct (37.5-50.1) % MCV (83.0-100.0) fL MCH (28.0-33.3) pg MCHC (31.6-35.5) g/dL RDW (11.5-14.5) % Plt Count (140-400) K/mcL MPV (9.4-12.4) fL Immature Gran % (0-4) % Seg Neutrophils % % Lymphocytes % % Monocytes % % Eosinophils % % Basophils % % Neutrophils # (1.6-8.9) K/mcL Lymphocytes # (0.6-4.6) K/mcL Monocytes # (0.0-1.3) K/mcL Eosinophils # (0.0-0.6) K/mcL Basophils # (0.0-0.2) K/mcL Platelet Estimate (Normal) Immature Plt Fraction (1.1-6.1) % PT (9.4-12.1) Seconds INR VBG pH (7.32-7.42) pH Units VBG pCO2 (41-51) mmHg VBG pO2 (25-50) mmHg VBG HCO3 (21-27) mEq/L Sodium 136 (136-145) mEq/L Potassium 3.5 (3.5-5.1) mEq/L Chloride 104 (98-107) mEq/L Carbon Dioxide 24 (23-29) mEq/L BUN 9 (6-20) mg/dL Creatinine 0.93 (0.70-1.30) mg/dL Est GFR ( Amer) > 60 (> 60) Est GFR (Non-Af Amer) > 60 (> 60) BUN/Creatinine Ratio 10 (6-26) Glucose 388 H (70-105) mg/dL POC Glucose (70-99) mg/dL Calculated Osmolality 297 (280-300) Calcium 9.6 (8.6-10.3) mg/dL Total Bilirubin 0.9 (0.3-1.0) mg/dL AST 17 (13-39) Units/L ALT 24 (7-52) Units/L Alkaline Phosphatase 56 (34-104) Units/L Ammonia (16-53) mcmol/L Serum Total Protein 6.7 (6.4-8.9) g/dL Albumin 4.2 (3.5-5.7) g/dL Globulin 2.5 (2.4-3.5) g/dL Albumin/Globulin Ratio 1.7 (1.1-2.2) Lipase 24 (11-82) Units/L Beta-Hydroxybutyric Acd 0.23 (0.02-0.27) mmol/L Urine Color (Yellow) Urine Clarity (Clear) Urine pH (5.0-8.0) pH Units Ur Specific [place] (1.010-1.025) Urine Protein (Neg-Trace) mg/dL Urine Glucose (UA) (Normal) mg/dL Urine Ketones (Negative) mg/dL Urine Blood (Negative) Urine Nitrite (Negative) Urine Bilirubin (Negative) Urine Urobilinogen (Normal) mg/dL Ur Leukocyte Esterase (Negative) Ur Culture Indicated? (NO) Salicylates (15.0-30.0) mg/dL Urine Opiates Screen (Itumvf=821) ng/mL Ur Buprenorphine Scrn (Cutoff=5) ng/mL Acetaminophen < 10 L (10-20) mcg/mL Ur Barbiturates Screen (Jkonen=603) ng/mL Ur Phencyclidine Scrn (Cutoff=25) ng/mL Ur Amphetamines Screen (Fxfafl=9861) ng/mL U Benzodiazepines Scrn (Qcpmjc=215) ng/mL Urine Cocaine Screen (Cutoff= 300) ng/mL U Marijuana (THC) Screen (Cutoff = 50) ng/mL Ur Drug Screen Interp 03/29/19 03/29/19 03/29/19 Range/Units 19:20 19:20 19:20 WBC (4.3-11.1) K/mcL RBC (4.19-5.50) M/mcL Hgb (12.9-16.9) g/dL Hct (37.5-50.1) % MCV (83.0-100.0) fL MCH (28.0-33.3) pg MCHC (31.6-35.5) g/dL RDW (11.5-14.5) % Plt Count (140-400) K/mcL MPV (9.4-12.4) fL Immature Gran % (0-4) % Seg Neutrophils % % Lymphocytes % % Monocytes % % Eosinophils % % Basophils % % Neutrophils # (1.6-8.9) K/mcL Lymphocytes # (0.6-4.6) K/mcL Monocytes # (0.0-1.3) K/mcL Eosinophils # (0.0-0.6) K/mcL Basophils # (0.0-0.2) K/mcL Platelet Estimate (Normal) Immature Plt Fraction (1.1-6.1) % PT 14.9 H (9.4-12.1) Seconds INR 1.3 VBG pH (7.32-7.42) pH Units VBG pCO2 (41-51) mmHg VBG pO2 (25-50) mmHg VBG HCO3 (21-27) mEq/L Sodium (136-145) mEq/L Potassium (3.5-5.1) mEq/L Chloride (98-107) mEq/L Carbon Dioxide (23-29) mEq/L BUN (6-20) mg/dL Creatinine (0.70-1.30) mg/dL Est GFR ( Amer) (> 60) Est GFR (Non-Af Amer) (> 60) BUN/Creatinine Ratio (6-26) Glucose (70-105) mg/dL POC Glucose (70-99) mg/dL Calculated Osmolality (280-300) Calcium (8.6-10.3) mg/dL Total Bilirubin (0.3-1.0) mg/dL AST (13-39) Units/L ALT (7-52) Units/L Alkaline Phosphatase (34-104) Units/L Ammonia 59 H (16-53) mcmol/L Serum Total Protein (6.4-8.9) g/dL Albumin (3.5-5.7) g/dL Globulin (2.4-3.5) g/dL Albumin/Globulin Ratio (1.1-2.2) Lipase (11-82) Units/L Beta-Hydroxybutyric Acd (0.02-0.27) mmol/L Urine Color (Yellow) Urine Clarity (Clear) Urine pH (5.0-8.0) pH Units Ur Specific [place] (1.010-1.025) Urine Protein (Neg-Trace) mg/dL Urine Glucose (UA) (Normal) mg/dL Urine Ketones (Negative) mg/dL Urine Blood (Negative) Urine Nitrite (Negative) Urine Bilirubin (Negative) Urine Urobilinogen (Normal) mg/dL Ur Leukocyte Esterase (Negative) Ur Culture Indicated? (NO) Salicylates < 2.5 L (15.0-30.0) mg/dL Urine Opiates Screen (Ilosoj=785) ng/mL Ur Buprenorphine Scrn (Cutoff=5) ng/mL Acetaminophen (10-20) mcg/mL Ur Barbiturates Screen (Waesbb=378) ng/mL Ur Phencyclidine Scrn (Cutoff=25) ng/mL Ur Amphetamines Screen (Fwggcy=1492) ng/mL U Benzodiazepines Scrn (Zoaolv=580) ng/mL Urine Cocaine Screen (Cutoff= 300) ng/mL U Marijuana (THC) Screen (Cutoff = 50) ng/mL Ur Drug Screen Interp 03/29/19 03/29/19 03/29/19 Range/Units 19:41 21:24 21:24 WBC (4.3-11.1) K/mcL RBC (4.19-5.50) M/mcL Hgb (12.9-16.9) g/dL Hct (37.5-50.1) % MCV (83.0-100.0) fL MCH (28.0-33.3) pg MCHC (31.6-35.5) g/dL RDW (11.5-14.5) % Plt Count (140-400) K/mcL MPV (9.4-12.4) fL Immature Gran % (0-4) % Seg Neutrophils % % Lymphocytes % % Monocytes % % Eosinophils % % Basophils % % Neutrophils # (1.6-8.9) K/mcL Lymphocytes # (0.6-4.6) K/mcL Monocytes # (0.0-1.3) K/mcL Eosinophils # (0.0-0.6) K/mcL Basophils # (0.0-0.2) K/mcL Platelet Estimate (Normal) Immature Plt Fraction (1.1-6.1) % PT (9.4-12.1) Seconds INR VBG pH 7.40 (7.32-7.42) pH Units VBG pCO2 38 L (41-51) mmHg VBG pO2 148 H (25-50) mmHg VBG HCO3 24 (21-27) mEq/L Sodium (136-145) mEq/L Potassium (3.5-5.1) mEq/L Chloride (98-107) mEq/L Carbon Dioxide (23-29) mEq/L BUN (6-20) mg/dL Creatinine (0.70-1.30) mg/dL Est GFR ( Amer) (> 60) Est GFR (Non-Af Amer) (> 60) BUN/Creatinine Ratio (6-26) Glucose (70-105) mg/dL POC Glucose (70-99) mg/dL Calculated Osmolality (280-300) Calcium (8.6-10.3) mg/dL Total Bilirubin (0.3-1.0) mg/dL AST (13-39) Units/L ALT (7-52) Units/L Alkaline Phosphatase (34-104) Units/L Ammonia (16-53) mcmol/L Serum Total Protein (6.4-8.9) g/dL Albumin (3.5-5.7) g/dL Globulin (2.4-3.5) g/dL Albumin/Globulin Ratio (1.1-2.2) Lipase (11-82) Units/L Beta-Hydroxybutyric Acd (0.02-0.27) mmol/L Urine Color Yellow (Yellow) Urine Clarity Clear (Clear) Urine pH 5.0 (5.0-8.0) pH Units Ur Specific [place] > 1.030 H (1.010-1.025) Urine Protein Negative (Neg-Trace) mg/dL Urine Glucose (UA) >=1000 H (Normal) mg/dL Urine Ketones Negative (Negative) mg/dL Urine Blood Negative (Negative) Urine Nitrite Negative (Negative) Urine Bilirubin Negative (Negative) Urine Urobilinogen Normal (Normal) mg/dL Ur Leukocyte Esterase Negative (Negative) Ur Culture Indicated? NO (NO) Salicylates (15.0-30.0) mg/dL Urine Opiates Screen Negative (Eodpey=648) ng/mL Ur Buprenorphine Scrn Negative (Cutoff=5) ng/mL Acetaminophen (10-20) mcg/mL Ur Barbiturates Screen Negative (Cseqlp=922) ng/mL Ur Phencyclidine Scrn Negative (Cutoff=25) ng/mL Ur Amphetamines Screen Negative (Uijyzo=7757) ng/mL U Benzodiazepines Scrn Positive H (Kqeidn=662) ng/mL Urine Cocaine Screen Negative (Cutoff= 300) ng/mL U Marijuana (THC) Screen Negative (Cutoff = 50) ng/mL Ur Drug Screen Interp See Below - EKG Data EKG #1 EKG attestation: Yes I reviewed and interpreted this EKG. EKG results narrative: 18:24 Heart rate 125 bpm, AR interval 164 ms, QRS duration 90 ms, QT 290 ms, normal axis. Sinus tachycardia with no ischemic ST changes.
[2019-03-29] MEDS ORDERED: *HR* LORazepam 2 MG/ML VIAL ONE ×4 (17:55→23:58)
[2019-03-29] MEDS ORDERED: 0.9 % Sodium Chloride 1,000 ML ONE (18:04)
[2019-03-29] MEDS: *HR* Midazolam HCl 2 MG/2 ML VIAL IVP ONE (18:12)
[2019-03-29] MEDS ORDERED: Dexmedetomidine HCl 400 MCG/100 ML MLS IVC ONE (18:14)
[2019-03-29] MEDS ORDERED: *HR* LORazepam 2 MG/ML VIAL IVP STA (18:22)
[2019-03-29] MEDS ORDERED: Thiamine (B-1) 100 MG in D5% in Water 50 ML IVPB STA (19:34)
[2019-03-29 19:41] LABS: Hemoglobin 14.2 g/dL (12.9-16.9)
[2019-03-29 19:42] LABS: Hematocrit 40.5 % (37.5-50.1); Red Blood Count 4.68 M/mcL (4.19-5.50); White Blood Count 4.5 K/mcL (4.3-11.1)
[2019-03-29 19:43] LABS: Basophils % 0.7 %; Eosinophils # 0.1 K/mcL (0.0-0.6); Eosinophils % 1.5 %; Immature Granulocytes % 0.4 % (0-4); Immature Platelets 7.8 % (1.1-6.1); Lymphocytes # 0.7 K/mcL (0.6-4.6); Mean Corpuscular HGB Conc 35.1 g/dL (31.6-35.5); Mean Corpuscular Hemoglobin 30.3 pg (28.0-33.3); Mean Corpuscular Volume 86.5 fL (83.0-100.0); Mean Platelet Volume 11.1 fL (9.4-12.4); Monocytes # 0.4 K/mcL (0.0-1.3); Monocytes % 9.3 %; Neutrophils # 3.3 K/mcL (1.6-8.9); Red Cell Distribution Width 12.7 % (11.5-14.5); Segmented Neutrophils % 73.1 %
[2019-03-29 19:46] LABS: VBG HCO3 24 mEq/L (21-27); VBG PCO2 38 mmHg (41-51); VBG PO2 148 mmHg (25-50)
[2019-03-29 20:01] LABS: Acetaminophen < 10 mcg/mL (10-20); Alanine Aminotransferase 24 Units/L (7-52); Albumin 4.2 g/dL (3.5-5.7); Albumin/Globulin Ratio 1.7 (1.1-2.2); Alkaline Phosphatase 56 Units/L (34-104); Aspartate Amino Transferase 17 Units/L (13-39); BUN/Creatinine Ratio 10 (6-26); Bilirubin,Total 0.9 mg/dL (0.3-1.0); Blood Urea Nitrogen 9 mg/dL (6-20); Calcium 9.6 mg/dL (8.6-10.3); Carbon Dioxide 24 mEq/L (23-29); Chloride 104 mEq/L (98-107); Globulin 2.5 g/dL (2.4-3.5); Glucose 388 mg/dL (70-105); Osmolality,Calculated 297 (280-300); Potassium 3.5 mEq/L (3.5-5.1); Sodium 136 mEq/L (136-145); Total Protein 6.7 g/dL (6.4-8.9); eGFR For African Americans > 60 (> 60); eGFR For Non-African Americans > 60 (> 60)
[2019-03-29 20:07] LABS: Platelet Count 49 K/mcL (140-400)
[2019-03-29 20:08] LABS: Platelet Estimate Decreased (Normal)
--- NOTE | 2019-03-29 21:17 | Emergency Department Note ---
Disposition Clinical Impression: Seizure, Agitation, Hyperglycemia Pneumonia Qualifiers: Pneumonia type: due to unspecified organism Laterality: bilateral Lung location: unspecified part of lung Qualified Code(s): J18.9 - Pneumonia, unspecified organism Disposition: Admitted As Inpatient Condition: Good Time of Disposition: 00:34 General Adult HPI - General Chief complaint: ED Seizure Stated complaint: Seizure Time Seen by Provider: 03/29/19 17:41 Limitations: no limitations - History of Present Illness Pain Scale: 0 - Related Data Home Medications Medication Instructions Recorded Confirmed Amlodipine Besylate 2.5 mg PO HS 09/20/17 06/29/18 Pravastatin Sodium [Pravachol] 40 mg PO HS 09/20/17 06/29/18 Aspirin [Adult Aspirin] 81 mg PO DAILY 06/26/18 06/29/18 Insulin ASPART [NovoLOG] 0 - 20 unit SQ TIDWM MDD SLIDING 06/26/18 03/30/19 SCALE Liraglutide [Victoza 2-Fidencio] 1.2 mg SQ DAILY 06/26/18 06/29/18 Multivit-Min/FA/Lycopen/Lutein [A 1 tab PO DAILY 06/26/18 06/29/18 Thru Z Select Men 50+ Tablet] Nitroglycerin [Nitrostat] 0.4 mg SL Q5M PRN 06/26/18 06/29/18 Omeprazole [PriLOSEC] 40 mg PO DAILY 06/26/18 06/29/18 SUMAtriptan Succinate [Imitrex] 100 mg PO DAILY PRN 06/26/18 06/29/18 Topiramate [Topamax] 100 mg PO BID 06/26/18 03/30/19 Trazodone HCl 100 mg PO HS 06/26/18 06/29/18 Insulin Degludec [Tresiba] 60 unit SQ DAILY 03/30/19 03/30/19 Metformin HCl [Metformin HCl ER] 500 mg PO BID 03/30/19 03/30/19 Previous Rx's Medication Instructions Recorded Cefdinir [Omnicef] 300 mg PO BID 10 Days #20 capsule 03/31/19 Doxycycline 100 mg PO BID 10 Days #20 capsule 03/31/19 Allergies Allergy/AdvReac Type Severity Reaction Status Date / Time linagliptin [From Tradjenta] Allergy Hives Verified 03/29/19 20:31 terfenadine [From Seldane] Allergy Rash Verified 03/29/19 20:31 Varenicline [From Chantix] AdvReac Agitated Verified 03/29/19 20:31 Constitutional: Denies: fever Cardiovascular: Denies: chest pain Respiratory: Denies: dyspnea Gastrointestinal: Reports: abdominal pain. Denies: nausea, vomiting, diarrhea, constipation Genitourinary: Denies: urgency, dysuria, frequency Musculoskeletal: Denies: back pain Past Medical History - Past Medical History Medical history: Reports: asthma, diabetes, GERD, hyperlipidemia, hypertension, seizures, TIA Surgical history: Reports: appendectomy Psychiatric history: Reports: bipolar - Social History Smoking Status: Current every day smoker Smokeless Tobacco Status: No Alcohol use: Reports: none Drug use: Reports: none Physical Exam - General Limitations: no limitations General appearance: lethargic Course Vital Signs Temperature 98.6 F 03/29/19 17:34 Pulse Rate 125 03/29/19 17:34 Respiratory Rate 19 03/29/19 17:34 Blood Pressure 178/94 03/29/19 17:34 O2 Sat by Pulse Oximetry 96 03/29/19 17:34 Temperature 98.0 F 03/31/19 17:06 Pulse Rate 91 03/31/19 17:06 Respiratory Rate 14 03/31/19 17:06 Blood Pressure 134/96 03/31/19 17:06 O2 Sat by Pulse Oximetry 94 03/31/19 17:06 Oxygen Delivery Oxygen Delivery Room Air Medical Decision Making - Lab Data Result diagrams: 03/31/19 08:45 03/31/19 08:45 Lab Results 03/29/19 03/29/19 03/29/19 Range/Units 17:39 17:41 19:20 WBC 4.5 (4.3-11.1) K/mcL RBC 4.68 (4.19-5.50) M/mcL Hgb 14.2 (12.9-16.9) g/dL Hct 40.5 (37.5-50.1) % MCV 86.5 (83.0-100.0) fL MCH 30.3 (28.0-33.3) pg MCHC 35.1 (31.6-35.5) g/dL RDW 12.7 (11.5-14.5) % Plt Count 49 L (140-400) K/mcL MPV 11.1 (9.4-12.4) fL Immature Gran % 0.4 (0-4) % Seg Neutrophils % 73.1 % Lymphocytes % 15.0 % Monocytes % 9.3 % Eosinophils % 1.5 % Basophils % 0.7 % Neutrophils # 3.3 (1.6-8.9) K/mcL Lymphocytes # 0.7 (0.6-4.6) K/mcL Monocytes # 0.4 (0.0-1.3) K/mcL Eosinophils # 0.1 (0.0-0.6) K/mcL Basophils # 0.0 (0.0-0.2) K/mcL Platelet Estimate Decreased L (Normal) Immature Plt Fraction 7.8 H (1.1-6.1) % PT (9.4-12.1) Seconds INR APTT (26.0-36.0) Seconds VBG pH (7.32-7.42) pH Units VBG pCO2 (41-51) mmHg VBG pO2 (25-50) mmHg VBG HCO3 (21-27) mEq/L Sodium (136-145) mEq/L Potassium (3.5-5.1) mEq/L Chloride (98-107) mEq/L Carbon Dioxide (23-29) mEq/L BUN (6-20) mg/dL Creatinine (0.70-1.30) mg/dL Est GFR ( Amer) (> 60) Est GFR (Non-Af Amer) (> 60) BUN/Creatinine Ratio (6-26) Glucose (70-105) mg/dL POC Glucose 462 H* 489 H* (70-99) mg/dL Calculated Osmolality (280-300) Calcium (8.6-10.3) mg/dL Phosphorus (2.7-4.5) mg/dL Magnesium (1.6-2.6) mg/dL Total Bilirubin (0.3-1.0) mg/dL Direct Bilirubin (0.0-0.2) mg/dL Indirect Bilirubin (0.0-1.2) mg/dL AST (13-39) Units/L ALT (7-52) Units/L Alkaline Phosphatase (34-104) Units/L Ammonia (16-53) mcmol/L Creatine Kinase (30-223) Units/L Serum Total Protein (6.4-8.9) g/dL Albumin (3.5-5.7) g/dL Globulin (2.4-3.5) g/dL Albumin/Globulin Ratio (1.1-2.2) Lipase (11-82) Units/L Beta-Hydroxybutyric Acd (0.02-0.27) mmol/L Urine Color (Yellow) Urine Clarity (Clear) Urine pH (5.0-8.0) pH Units Ur Specific [place] (1.010-1.025) Urine Protein (Neg-Trace) mg/dL Urine Glucose (UA) (Normal) mg/dL Urine Ketones (Negative) mg/dL Urine Blood (Negative) Urine Nitrite (Negative) Urine Bilirubin (Negative) Urine Urobilinogen (Normal) mg/dL Ur Leukocyte Esterase (Negative) Ur Culture Indicated? (NO) Salicylates (15.0-30.0) mg/dL Urine Opiates Screen (Hefkjx=439) ng/mL Ur Buprenorphine Scrn (Cutoff=5) ng/mL Acetaminophen (10-20) mcg/mL Ur Barbiturates Screen (Rnbbja=819) ng/mL Ur Phencyclidine Scrn (Cutoff=25) ng/mL Ur Amphetamines Screen (Wegkhb=8343) ng/mL U Benzodiazepines Scrn (Lidtlf=756) ng/mL Urine Cocaine Screen (Cutoff= 300) ng/mL U Marijuana (THC) Screen (Cutoff = 50) ng/mL Ur Drug Screen Interp Ethyl Alcohol (Less than 10) mg/dL 03/29/19 03/29/19 03/29/19 Range/Units 19:20 19:20 19:20 WBC (4.3-11.1) K/mcL RBC (4.19-5.50) M/mcL Hgb (12.9-16.9) g/dL Hct (37.5-50.1) % MCV (83.0-100.0) fL MCH (28.0-33.3) pg MCHC (31.6-35.5) g/dL RDW (11.5-14.5) % Plt Count (140-400) K/mcL MPV (9.4-12.4) fL Immature Gran % (0-4) % Seg Neutrophils % % Lymphocytes % % Monocytes % % Eosinophils % % Basophils % % Neutrophils # (1.6-8.9) K/mcL Lymphocytes # (0.6-4.6) K/mcL Monocytes # (0.0-1.3) K/mcL Eosinophils # (0.0-0.6) K/mcL Basophils # (0.0-0.2) K/mcL Platelet Estimate (Normal) Immature Plt Fraction (1.1-6.1) % PT (9.4-12.1) Seconds INR APTT (26.0-36.0) Seconds VBG pH (7.32-7.42) pH Units VBG pCO2 (41-51) mmHg VBG pO2 (25-50) mmHg VBG HCO3 (21-27) mEq/L Sodium 136 (136-145) mEq/L Potassium 3.5 (3.5-5.1) mEq/L Chloride 104 (98-107) mEq/L Carbon Dioxide 24 (23-29) mEq/L BUN 9 (6-20) mg/dL Creatinine 0.93 (0.70-1.30) mg/dL Est GFR ( Amer) > 60 (> 60) Est GFR (Non-Af Amer) > 60 (> 60) BUN/Creatinine Ratio 10 (6-26) Glucose 388 H (70-105) mg/dL POC Glucose (70-99) mg/dL Calculated Osmolality 297 (280-300) Calcium 9.6 (8.6-10.3) mg/dL Phosphorus (2.7-4.5) mg/dL Magnesium (1.6-2.6) mg/dL Total Bilirubin 0.9 (0.3-1.0) mg/dL Direct Bilirubin (0.0-0.2) mg/dL Indirect Bilirubin (0.0-1.2) mg/dL AST 17 (13-39) Units/L ALT 24 (7-52) Units/L Alkaline Phosphatase 56 (34-104) Units/L Ammonia (16-53) mcmol/L Creatine Kinase (30-223) Units/L Serum Total Protein 6.7 (6.4-8.9) g/dL Albumin 4.2 (3.5-5.7) g/dL Globulin 2.5 (2.4-3.5) g/dL Albumin/Globulin Ratio 1.7 (1.1-2.2) Lipase 24 (11-82) Units/L Beta-Hydroxybutyric Acd 0.23 (0.02-0.27) mmol/L Urine Color (Yellow) Urine Clarity (Clear) Urine pH (5.0-8.0) pH Units Ur Specific [place] (1.010-1.025) Urine Protein (Neg-Trace) mg/dL Urine Glucose (UA) (Normal) mg/dL Urine Ketones (Negative) mg/dL Urine Blood (Negative) Urine Nitrite (Negative) Urine Bilirubin (Negative) Urine Urobilinogen (Normal) mg/dL Ur Leukocyte Esterase (Negative) Ur Culture Indicated? (NO) Salicylates (15.0-30.0) mg/dL Urine Opiates Screen (Kensbn=261) ng/mL Ur Buprenorphine Scrn (Cutoff=5) ng/mL Acetaminophen < 10 L (10-20) mcg/mL Ur Barbiturates Screen (Ntsiwd=785) ng/mL Ur Phencyclidine Scrn (Cutoff=25) ng/mL Ur Amphetamines Screen (Hklwng=9307) ng/mL U Benzodiazepines Scrn (Vcgftk=922) ng/mL Urine Cocaine Screen (Cutoff= 300) ng/mL U Marijuana (THC) Screen (Cutoff = 50) ng/mL Ur Drug Screen Interp Ethyl Alcohol (Less than 10) mg/dL 03/29/19 03/29/19 03/29/19 Range/Units 19:20 19:20 19:20 WBC (4.3-11.1) K/mcL RBC (4.19-5.50) M/mcL Hgb (12.9-16.9) g/dL Hct (37.5-50.1) % MCV (83.0-100.0) fL MCH (28.0-33.3) pg MCHC (31.6-35.5) g/dL RDW (11.5-14.5) % Plt Count (140-400) K/mcL MPV (9.4-12.4) fL Immature Gran % (0-4) % Seg Neutrophils % % Lymphocytes % % Monocytes % % Eosinophils % % Basophils % % Neutrophils # (1.6-8.9) K/mcL Lymphocytes # (0.6-4.6) K/mcL Monocytes # (0.0-1.3) K/mcL Eosinophils # (0.0-0.6) K/mcL Basophils # (0.0-0.2) K/mcL Platelet Estimate (Normal) Immature Plt Fraction (1.1-6.1) % PT 14.9 H (9.4-12.1) Seconds INR 1.3 APTT (26.0-36.0) Seconds VBG pH (7.32-7.42) pH Units VBG pCO2 (41-51) mmHg VBG pO2 (25-50) mmHg VBG HCO3 (21-27) mEq/L Sodium (136-145) mEq/L Potassium (3.5-5.1) mEq/L Chloride (98-107) mEq/L Carbon Dioxide (23-29) mEq/L BUN (6-20) mg/dL Creatinine (0.70-1.30) mg/dL Est GFR ( Amer) (> 60) Est GFR (Non-Af Amer) (> 60) BUN/Creatinine Ratio (6-26) Glucose (70-105) mg/dL POC Glucose (70-99) mg/dL Calculated Osmolality (280-300) Calcium (8.6-10.3) mg/dL Phosphorus (2.7-4.5) mg/dL Magnesium (1.6-2.6) mg/dL Total Bilirubin (0.3-1.0) mg/dL Direct Bilirubin (0.0-0.2) mg/dL Indirect Bilirubin (0.0-1.2) mg/dL AST (13-39) Units/L ALT (7-52) Units/L Alkaline Phosphatase (34-104) Units/L Ammonia 59 H (16-53) mcmol/L Creatine Kinase (30-223) Units/L Serum Total Protein (6.4-8.9) g/dL Albumin (3.5-5.7) g/dL Globulin (2.4-3.5) g/dL Albumin/Globulin Ratio (1.1-2.2) Lipase (11-82) Units/L Beta-Hydroxybutyric Acd (0.02-0.27) mmol/L Urine Color (Yellow) Urine Clarity (Clear) Urine pH (5.0-8.0) pH Units Ur Specific [place] (1.010-1.025) Urine Protein (Neg-Trace) mg/dL Urine Glucose (UA) (Normal) mg/dL Urine Ketones (Negative) mg/dL Urine Blood (Negative) Urine Nitrite (Negative) Urine Bilirubin (Negative) Urine Urobilinogen (Normal) mg/dL Ur Leukocyte Esterase (Negative) Ur Culture Indicated? (NO) Salicylates < 2.5 L (15.0-30.0) mg/dL Urine Opiates Screen (Hogoyh=060) ng/mL Ur Buprenorphine Scrn (Cutoff=5) ng/mL Acetaminophen (10-20) mcg/mL Ur Barbiturates Screen (Mvnerc=217) ng/mL Ur Phencyclidine Scrn (Cutoff=25) ng/mL Ur Amphetamines Screen (Dieubq=3124) ng/mL U Benzodiazepines Scrn (Wdallz=739) ng/mL Urine Cocaine Screen (Cutoff= 300) ng/mL U Marijuana (THC) Screen (Cutoff = 50) ng/mL Ur Drug Screen Interp Ethyl Alcohol (Less than 10) mg/dL 03/29/19 03/29/19 03/29/19 Range/Units 19:41 21:24 21:24 WBC (4.3-11.1) K/mcL RBC (4.19-5.50) M/mcL Hgb (12.9-16.9) g/dL Hct (37.5-50.1) % MCV (83.0-100.0) fL MCH (28.0-33.3) pg MCHC (31.6-35.5) g/dL RDW (11.5-14.5) % Plt Count (140-400) K/mcL MPV (9.4-12.4) fL Immature Gran % (0-4) % Seg Neutrophils % % Lymphocytes % % Monocytes % % Eosinophils % % Basophils % % Neutrophils # (1.6-8.9) K/mcL Lymphocytes # (0.6-4.6) K/mcL Monocytes # (0.0-1.3) K/mcL Eosinophils # (0.0-0.6) K/mcL Basophils # (0.0-0.2) K/mcL Platelet Estimate (Normal) Immature Plt Fraction (1.1-6.1) % PT (9.4-12.1) Seconds INR APTT (26.0-36.0) Seconds VBG pH 7.40 (7.32-7.42) pH Units VBG pCO2 38 L (41-51) mmHg VBG pO2 148 H (25-50) mmHg VBG HCO3 24 (21-27) mEq/L Sodium (136-145) mEq/L Potassium (3.5-5.1) mEq/L Chloride (98-107) mEq/L Carbon Dioxide (23-29) mEq/L BUN (6-20) mg/dL Creatinine (0.70-1.30) mg/dL Est GFR ( Amer) (> 60) Est GFR (Non-Af Amer) (> 60) BUN/Creatinine Ratio (6-26) Glucose (70-105) mg/dL POC Glucose (70-99) mg/dL Calculated Osmolality (280-300) Calcium (8.6-10.3) mg/dL Phosphorus (2.7-4.5) mg/dL Magnesium (1.6-2.6) mg/dL Total Bilirubin (0.3-1.0) mg/dL Direct Bilirubin (0.0-0.2) mg/dL Indirect Bilirubin (0.0-1.2) mg/dL AST (13-39) Units/L ALT (7-52) Units/L Alkaline Phosphatase (34-104) Units/L Ammonia (16-53) mcmol/L Creatine Kinase (30-223) Units/L Serum Total Protein (6.4-8.9) g/dL Albumin (3.5-5.7) g/dL Globulin (2.4-3.5) g/dL Albumin/Globulin Ratio (1.1-2.2) Lipase (11-82) Units/L Beta-Hydroxybutyric Acd (0.02-0.27) mmol/L Urine Color Yellow (Yellow) Urine Clarity Clear (Clear) Urine pH 5.0 (5.0-8.0) pH Units Ur Specific [place] > 1.030 H (1.010-1.025) Urine Protein Negative (Neg-Trace) mg/dL Urine Glucose (UA) >=1000 H (Normal) mg/dL Urine Ketones Negative (Negative) mg/dL Urine Blood Negative (Negative) Urine Nitrite Negative (Negative) Urine Bilirubin Negative (Negative) Urine Urobilinogen Normal (Normal) mg/dL Ur Leukocyte Esterase Negative (Negative) Ur Culture Indicated? NO (NO) Salicylates (15.0-30.0) mg/dL Urine Opiates Screen Negative (Nhedbs=208) ng/mL Ur Buprenorphine Scrn Negative (Cutoff=5) ng/mL Acetaminophen (10-20) mcg/mL Ur Barbiturates Screen Negative (Dsjyiu=150) ng/mL Ur Phencyclidine Scrn Negative (Cutoff=25) ng/mL Ur Amphetamines Screen Negative (Ywcnet=5880) ng/mL U Benzodiazepines Scrn Positive H (Opxrnh=772) ng/mL Urine Cocaine Screen Negative (Cutoff= 300) ng/mL U Marijuana (THC) Screen Negative (Cutoff = 50) ng/mL Ur Drug Screen Interp See Below Ethyl Alcohol (Less than 10) mg/dL 03/30/19 03/30/19 03/30/19 Range/Units 00:20 02:05 03:18 WBC 5.7 (4.3-11.1) K/mcL RBC 4.27 (4.19-5.50) M/mcL Hgb 13.0 (12.9-16.9) g/dL Hct 38.2 (37.5-50.1) % MCV 89.5 (83.0-100.0) fL MCH 30.4 (28.0-33.3) pg MCHC 34.0 (31.6-35.5) g/dL RDW 13.0 (11.5-14.5) % Plt Count 44 L (140-400) K/mcL MPV 11.5 (9.4-12.4) fL Immature Gran % (0-4) % Seg Neutrophils % % Lymphocytes % % Monocytes % % Eosinophils % % Basophils % % Neutrophils # (1.6-8.9) K/mcL Lymphocytes # (0.6-4.6) K/mcL Monocytes # (0.0-1.3) K/mcL Eosinophils # (0.0-0.6) K/mcL Basophils # (0.0-0.2) K/mcL Platelet Estimate (Normal) Immature Plt Fraction 6.5 H (1.1-6.1) % PT (9.4-12.1) Seconds INR APTT (26.0-36.0) Seconds VBG pH (7.32-7.42) pH Units VBG pCO2 (41-51) mmHg VBG pO2 (25-50) mmHg VBG HCO3 (21-27) mEq/L Sodium (136-145) mEq/L Potassium (3.5-5.1) mEq/L Chloride (98-107) mEq/L Carbon Dioxide (23-29) mEq/L BUN (6-20) mg/dL Creatinine (0.70-1.30) mg/dL Est GFR ( Amer) (> 60) Est GFR (Non-Af Amer) (> 60) BUN/Creatinine Ratio (6-26) Glucose (70-105) mg/dL POC Glucose 241 H (70-99) mg/dL Calculated Osmolality (280-300) Calcium (8.6-10.3) mg/dL Phosphorus (2.7-4.5) mg/dL Magnesium (1.6-2.6) mg/dL Total Bilirubin (0.3-1.0) mg/dL Direct Bilirubin (0.0-0.2) mg/dL Indirect Bilirubin (0.0-1.2) mg/dL AST (13-39) Units/L ALT (7-52) Units/L Alkaline Phosphatase (34-104) Units/L Ammonia (16-53) mcmol/L Creatine Kinase (30-223) Units/L Serum Total Protein (6.4-8.9) g/dL Albumin (3.5-5.7) g/dL Globulin (2.4-3.5) g/dL Albumin/Globulin Ratio (1.1-2.2) Lipase (11-82) Units/L Beta-Hydroxybutyric Acd (0.02-0.27) mmol/L Urine Color (Yellow) Urine Clarity (Clear) Urine pH (5.0-8.0) pH Units Ur Specific [place] (1.010-1.025) Urine Protein (Neg-Trace) mg/dL Urine Glucose (UA) (Normal) mg/dL Urine Ketones (Negative) mg/dL Urine Blood (Negative) Urine Nitrite (Negative) Urine Bilirubin (Negative) Urine Urobilinogen (Normal) mg/dL Ur Leukocyte Esterase (Negative) Ur Culture Indicated? (NO) Salicylates (15.0-30.0) mg/dL Urine Opiates Screen (Hjeaxi=887) ng/mL Ur Buprenorphine Scrn (Cutoff=5) ng/mL Acetaminophen (10-20) mcg/mL Ur Barbiturates Screen (Zhyqbp=766) ng/mL Ur Phencyclidine Scrn (Cutoff=25) ng/mL Ur Amphetamines Screen (Blsvox=2186) ng/mL U Benzodiazepines Scrn (Fvambq=566) ng/mL Urine Cocaine Screen (Cutoff= 300) ng/mL U Marijuana (THC) Screen (Cutoff = 50) ng/mL Ur Drug Screen Interp Ethyl Alcohol < 10 (Less than 10) mg/dL 03/30/19 03/30/19 03/30/19 Range/Units 03:18 03:18 04:34 WBC (4.3-11.1) K/mcL RBC (4.19-5.50) M/mcL Hgb (12.9-16.9) g/dL Hct (37.5-50.1) % MCV (83.0-100.0) fL MCH (28.0-33.3) pg MCHC (31.6-35.5) g/dL RDW (11.5-14.5) % Plt Count (140-400) K/mcL MPV (9.4-12.4) fL Immature Gran % (0-4) % Seg Neutrophils % % Lymphocytes % % Monocytes % % Eosinophils % % Basophils % % Neutrophils # (1.6-8.9) K/mcL Lymphocytes # (0.6-4.6) K/mcL Monocytes # (0.0-1.3) K/mcL Eosinophils # (0.0-0.6) K/mcL Basophils # (0.0-0.2) K/mcL Platelet Estimate (Normal) Immature Plt Fraction (1.1-6.1) % PT 15.4 H (9.4-12.1) Seconds INR 1.4 APTT 30.1 (26.0-36.0) Seconds VBG pH (7.32-7.42) pH Units VBG pCO2 (41-51) mmHg VBG pO2 (25-50) mmHg VBG HCO3 (21-27) mEq/L Sodium 139 (136-145) mEq/L Potassium 3.5 (3.5-5.1) mEq/L Chloride 110 H (98-107) mEq/L Carbon Dioxide 23 (23-29) mEq/L BUN 8 (6-20) mg/dL Creatinine 0.70 (0.70-1.30) mg/dL Est GFR ( Amer) > 60 (> 60) Est GFR (Non-Af Amer) > 60 (> 60) BUN/Creatinine Ratio 11 (6-26) Glucose 273 H (70-105) mg/dL POC Glucose (70-99) mg/dL Calculated Osmolality 296 (280-300) Calcium 8.4 L (8.6-10.3) mg/dL Phosphorus 2.7 (2.7-4.5) mg/dL Magnesium 1.7 (1.6-2.6) mg/dL Total Bilirubin 0.7 (0.3-1.0) mg/dL Direct Bilirubin 0.1 (0.0-0.2) mg/dL Indirect Bilirubin 0.6 (0.0-1.2) mg/dL AST 16 (13-39) Units/L ALT 21 (7-52) Units/L Alkaline Phosphatase 46 (34-104) Units/L Ammonia 46 (16-53) mcmol/L Creatine Kinase (30-223) Units/L Serum Total Protein 6.1 L (6.4-8.9) g/dL Albumin 3.6 (3.5-5.7) g/dL Globulin 2.5 (2.4-3.5) g/dL Albumin/Globulin Ratio 1.4 (1.1-2.2) Lipase (11-82) Units/L Beta-Hydroxybutyric Acd (0.02-0.27) mmol/L Urine Color (Yellow) Urine Clarity (Clear) Urine pH (5.0-8.0) pH Units Ur Specific [place] (1.010-1.025) Urine Protein (Neg-Trace) mg/dL Urine Glucose (UA) (Normal) mg/dL Urine Ketones (Negative) mg/dL Urine Blood (Negative) Urine Nitrite (Negative) Urine Bilirubin (Negative) Urine Urobilinogen (Normal) mg/dL Ur Leukocyte Esterase (Negative) Ur Culture Indicated? (NO) Salicylates (15.0-30.0) mg/dL Urine Opiates Screen (Lhvcvp=461) ng/mL Ur Buprenorphine Scrn (Cutoff=5) ng/mL Acetaminophen (10-20) mcg/mL Ur Barbiturates Screen (Wmowpo=057) ng/mL Ur Phencyclidine Scrn (Cutoff=25) ng/mL Ur Amphetamines Screen (Yqwdsh=9627) ng/mL U Benzodiazepines Scrn (Qxqshz=532) ng/mL Urine Cocaine Screen (Cutoff= 300) ng/mL U Marijuana (THC) Screen (Cutoff = 50) ng/mL Ur Drug Screen Interp Ethyl Alcohol (Less than 10) mg/dL 03/30/19 03/30/19 03/30/19 Range/Units 05:54 11:03 23:54 WBC (4.3-11.1) K/mcL RBC (4.19-5.50) M/mcL Hgb (12.9-16.9) g/dL Hct (37.5-50.1) % MCV (83.0-100.0) fL MCH (28.0-33.3) pg MCHC (31.6-35.5) g/dL RDW (11.5-14.5) % Plt Count (140-400) K/mcL MPV (9.4-12.4) fL Immature Gran % (0-4) % Seg Neutrophils % % Lymphocytes % % Monocytes % % Eosinophils % % Basophils % % Neutrophils # (1.6-8.9) K/mcL Lymphocytes # (0.6-4.6) K/mcL Monocytes # (0.0-1.3) K/mcL Eosinophils # (0.0-0.6) K/mcL Basophils # (0.0-0.2) K/mcL Platelet Estimate (Normal) Immature Plt Fraction (1.1-6.1) % PT (9.4-12.1) Seconds INR APTT (26.0-36.0) Seconds VBG pH (7.32-7.42) pH Units VBG pCO2 (41-51) mmHg VBG pO2 (25-50) mmHg VBG HCO3 (21-27) mEq/L Sodium (136-145) mEq/L Potassium (3.5-5.1) mEq/L Chloride (98-107) mEq/L Carbon Dioxide (23-29) mEq/L BUN (6-20) mg/dL Creatinine (0.70-1.30) mg/dL Est GFR ( Amer) (> 60) Est GFR (Non-Af Amer) (> 60) BUN/Creatinine Ratio (6-26) Glucose (70-105) mg/dL POC Glucose 330 H 265 H 215 H (70-99) mg/dL Calculated Osmolality (280-300) Calcium (8.6-10.3) mg/dL Phosphorus (2.7-4.5) mg/dL Magnesium (1.6-2.6) mg/dL Total Bilirubin (0.3-1.0) mg/dL Direct Bilirubin (0.0-0.2) mg/dL Indirect Bilirubin (0.0-1.2) mg/dL AST (13-39) Units/L ALT (7-52) Units/L Alkaline Phosphatase (34-104) Units/L Ammonia (16-53) mcmol/L Creatine Kinase (30-223) Units/L Serum Total Protein (6.4-8.9) g/dL Albumin (3.5-5.7) g/dL Globulin (2.4-3.5) g/dL Albumin/Globulin Ratio (1.1-2.2) Lipase (11-82) Units/L Beta-Hydroxybutyric Acd (0.02-0.27) mmol/L Urine Color (Yellow) Urine Clarity (Clear) Urine pH (5.0-8.0) pH Units Ur Specific [place] (1.010-1.025) Urine Protein (Neg-Trace) mg/dL Urine Glucose (UA) (Normal) mg/dL Urine Ketones (Negative) mg/dL Urine Blood (Negative) Urine Nitrite (Negative) Urine Bilirubin (Negative) Urine Urobilinogen (Normal) mg/dL Ur Leukocyte Esterase (Negative) Ur Culture Indicated? (NO) Salicylates (15.0-30.0) mg/dL Urine Opiates Screen (Ovewzp=554) ng/mL Ur Buprenorphine Scrn (Cutoff=5) ng/mL Acetaminophen (10-20) mcg/mL Ur Barbiturates Screen (Bkbobk=963) ng/mL Ur Phencyclidine Scrn (Cutoff=25) ng/mL Ur Amphetamines Screen (Wupghq=5515) ng/mL U Benzodiazepines Scrn (Gqxeqv=337) ng/mL Urine Cocaine Screen (Cutoff= 300) ng/mL U Marijuana (THC) Screen (Cutoff = 50) ng/mL Ur Drug Screen Interp Ethyl Alcohol (Less than 10) mg/dL 03/31/19 03/31/19 Range/Units 08:45 08:45 WBC 4.4 (4.3-11.1) K/mcL RBC 4.33 (4.19-5.50) M/mcL Hgb 13.7 (12.9-16.9) g/dL Hct 39.0 (37.5-50.1) % MCV 90.1 (83.0-100.0) fL MCH 31.6 (28.0-33.3) pg MCHC 35.1 (31.6-35.5) g/dL RDW 12.8 (11.5-14.5) % Plt Count 36 L (140-400) K/mcL MPV 10.6 (9.4-12.4) fL Immature Gran % 0.2 (0-4) % Seg Neutrophils % 77.4 % Lymphocytes % 12.0 % Monocytes % 8.2 % Eosinophils % 2.0 % Basophils % 0.2 % Neutrophils # 3.4 (1.6-8.9) K/mcL Lymphocytes # 0.5 L (0.6-4.6) K/mcL Monocytes # 0.4 (0.0-1.3) K/mcL Eosinophils # 0.1 (0.0-0.6) K/mcL Basophils # 0.0 (0.0-0.2) K/mcL Platelet Estimate (Normal) Immature Plt Fraction 5.0 (1.1-6.1) % PT (9.4-12.1) Seconds INR APTT (26.0-36.0) Seconds VBG pH (7.32-7.42) pH Units VBG pCO2 (41-51) mmHg VBG pO2 (25-50) mmHg VBG HCO3 (21-27) mEq/L Sodium 139 (136-145) mEq/L Potassium 3.6 (3.5-5.1) mEq/L Chloride 110 H (98-107) mEq/L Carbon Dioxide 23 (23-29) mEq/L BUN 10 (6-20) mg/dL Creatinine 0.66 L (0.70-1.30) mg/dL Est GFR ( Amer) > 60 (> 60) Est GFR (Non-Af Amer) > 60 (> 60) BUN/Creatinine Ratio 15 (6-26) Glucose 281 H (70-105) mg/dL POC Glucose (70-99) mg/dL Calculated Osmolality 297 (280-300) Calcium 8.7 (8.6-10.3) mg/dL Phosphorus (2.7-4.5) mg/dL Magnesium (1.6-2.6) mg/dL Total Bilirubin (0.3-1.0) mg/dL Direct Bilirubin (0.0-0.2) mg/dL Indirect Bilirubin (0.0-1.2) mg/dL AST (13-39) Units/L ALT (7-52) Units/L Alkaline Phosphatase (34-104) Units/L Ammonia (16-53) mcmol/L Creatine Kinase 223 (30-223) Units/L Serum Total Protein (6.4-8.9) g/dL Albumin (3.5-5.7) g/dL Globulin (2.4-3.5) g/dL Albumin/Globulin Ratio (1.1-2.2) Lipase (11-82) Units/L Beta-Hydroxybutyric Acd (0.02-0.27) mmol/L Urine Color (Yellow) Urine Clarity (Clear) Urine pH (5.0-8.0) pH Units Ur Specific [place] (1.010-1.025) Urine Protein (Neg-Trace) mg/dL Urine Glucose (UA) (Normal) mg/dL Urine Ketones (Negative) mg/dL Urine Blood (Negative) Urine Nitrite (Negative) Urine Bilirubin (Negative) Urine Urobilinogen (Normal) mg/dL Ur Leukocyte Esterase (Negative) Ur Culture Indicated? (NO) Salicylates (15.0-30.0) mg/dL Urine Opiates Screen (Qrtakw=138) ng/mL Ur Buprenorphine Scrn (Cutoff=5) ng/mL Acetaminophen (10-20) mcg/mL Ur Barbiturates Screen (Xqmduh=996) ng/mL Ur Phencyclidine Scrn (Cutoff=25) ng/mL Ur Amphetamines Screen (Utilrc=8339) ng/mL U Benzodiazepines Scrn (Mitgmr=751) ng/mL Urine Cocaine Screen (Cutoff= 300) ng/mL U Marijuana (THC) Screen (Cutoff = 50) ng/mL Ur Drug Screen Interp Ethyl Alcohol (Less than 10) mg/dL Attestation Statement - Attestation Attestation: I examined this patient and my medical decision-making was reviewed with the Resident Physician. I agree with the documented findings, disposition and treatment plan as described except to the extent set forth below. Patient 43-year-old gentleman who presents to the emergency department with chief complaint of seizure. The patient reports he has prior history of seizure disorder and reports today the family noticed that he had a [place]. Afterwards the patient was in a prolonged postictal phase and the patient's family was concerned that he would become combative if he woke up after his complete his postictal phase. The patient has a history of episodes of becoming combative whenever he comes out of his seizures Exam patient is postictal is tachycardic while in the emergency department the patient became extremely violent and combative whenever he was waking up. The patient has no focal findings other than being tender in the abdomen upon palpation. Medical decision management patient underwent evaluation from a metabolic and also had a CT scan of the abdomen and pelvis. The patient required multiple doses of benzodiazepines during his postictal phase to control his agitation the patient will be admitted to the hospital for observation
[2019-03-29 21:50] LABS: Bilirubin,Urine Negative (Negative); Blood,Urine Negative (Negative); Clarity,Urine Clear (Clear); Color,Urine Yellow (Yellow); Glucose,Urine (UA) >=1000 mg/dL (Normal); Ketones,Urine Negative (Negative); Leukocyte Esterase,Urine Negative (Negative); Nitrite,Urine Negative (Negative); Protein,Urine Negative (Neg-Trace); Specific Gravity,Urine > 1.030 (1.010-1.025); Urobilinogen,Urine Normal (Normal)
[2019-03-29] MEDS ORDERED: Isovue-370 500 ML BOTTLE IVP ONE (21:50)
[2019-03-29 22:00] LABS: Amphetamine Screen,Urine Negative ng/mL (Cutoff=1000); Barbiturate Screen,Urine Negative ng/mL (Cutoff=200); Benzodiazepines Screen,Urine Positive ng/mL (Cutoff=200); Cannabinoid Screen,Urine Negative ng/mL (Cutoff = 50); Cocaine Screen,Urine Negative ng/mL (Cutoff= 300); Opiate Screen,Urine Negative ng/mL (Cutoff=300); Phencyclidine Screen,Urine Negative ng/mL (Cutoff=25)
[2019-03-29 22:09] LABS: INR 1.3; Prothrombin Time 14.9 Seconds (9.4-12.1)
[2019-03-29] MEDS: 0.9 % Sodium Chloride 1,000 ML IVC SCH (23:29)
[2019-03-30] MEDS ORDERED: *HR* LORazepam 2 MG/ML VIAL ONE (00:01)
[2019-03-30] MEDS ORDERED: *HR* Midazolam HCl 2 MG/2 ML VIAL ONE (00:01)
[2019-03-30] MEDS ORDERED: levETIRAcetam 1,000 MG in 0.9 % Sodium Chloride 100 ML IVPB ONE (00:05)
[2019-03-30] MEDS ORDERED: *HR* Midazolam HCl 5 MG/5 ML VIAL IVP ONE (00:07)
[2019-03-30] MEDS ORDERED: *HR* LORazepam 2 MG/ML VIAL IVP ONE (00:07)
[2019-03-30] MEDS: *HR* Midazolam HCl 2 MG/2 ML VIAL IVP ONE (00:10)
[2019-03-30] MEDS ORDERED: *HR* LORazepam 2 MG/ML VIAL IVP PRN ×3 (00:17)
[2019-03-30] MEDS ORDERED: Azithromycin 500 MG in 0.9 % Sodium Chloride 250 ML IVPB ONE (00:31)
[2019-03-30] MEDS ORDERED: cefTRIAXone 1,000 MG in Water for inj. (sterile) 10 ML IVP ONE (00:31)
[2019-03-30] MEDS ORDERED: Dexmedetomidine HCl 400 MCG/100 ML MLS IVC ONE (01:46)
[2019-03-30] MEDS ORDERED: 0.9 % Sodium Chloride 1,000 ML ONE (01:46)
[2019-03-30] MEDS ORDERED: Naloxone 0.4 MG/ML INJ IVP PRN (02:34)
[2019-03-30] MEDS ORDERED: D5% in Water 1,000 ML IVC PRN (02:36)
[2019-03-30] MEDS ORDERED: Dextrose Gel 15 GM/37.5 ML TUBE PO PRN ×2 (02:36)
[2019-03-30] MEDS ORDERED: *HR* Dextrose 50 % in Water (Syg) 50 ML SYRINGE IVP PRN (02:36)
--- NOTE | 2019-03-30 03:32 | Internal Med History&Physical ---
Date of Encounter: 03/30/19 Time of Encounter: 01:50 Internal Medicine - H&P: HPI Chief complaint: Altered mental status, seizure-like activity Admitted From: Emergency Dept Plans for Post Hospital Care: Home History of present illness: Mr. Munoz is a 43 year old male Patient presented to the emergency department after having a seizure while shopping with his . According to his who is at bedside, the patient had been at a shopping area when he had complaints of lower abdominal pain. He sat down on a bench while his went to go shopping. Upon her return he was having seizure-like activity and was not responsive. She did not call for an ambulance due to past experience where the patient became very aggressive incentive ambulance while being transported to the hospital. She instead managed to get the patient into her own private vehicle and transport him to the hospital herself. She said that he maintained seizure-like activity during the entirety of the drive. Upon arrival to the emergency department patient was post ictal. He has a history of seizures, and follows with neurology at [facility]. He also has a history of alcoholic cirrhosis and sees gastroenterology at [facility]. He has a previous presentation similar to this last May according to his and he became very agitated once he recovered from his seizure. Emergency department vital signs: Notable for an elevated pulse of 125 and blood pressure 178/94. These improved with medication for agitation CBC unremarkable. Patient does have baseline, cytopenia, currently platelet count 49. Patient has been, cytopenic for the last 4 years according to the chart. BMP: Electrolytes within normal limits, renal function normal. Elevated blood glucose of 388. Liver function tests within normal limits. Ammonia slightly elevated 59 Lipase 24 Beta hydroxybutyric acid 0.23. Urinalysis elevated specific gravity and urine glucose, otherwise negative for infection. Urine tox screen positive for benzodiazepines, otherwise negative. Blood alcohol level less than 10. EKG: Sinus tachycardia, rate 125, QTC 419. No ST changes. Similar compared to previous EKG. Chest x-ray: Negative portable study Head CT: no acute intracranial abnormality Abdomen pelvis CT: IMPRESSION: 1. Dependent consolidative changes at the lung bases bilaterally, right greater than left. Findings may reflect atelectasis, however, superimposed infiltrate not entirely excluded. 2. Nonspecific stranding within the retroperitoneum and adjacent to the gallbladder and also extending along the bilateral pericolic gutters and within the presacral soft tissues. There is a small amount of intra-abdominal fluid. Previous contrast enhanced exam demonstrated partial thrombosis of the portal vein with clot extending into the SMV and splenic vein on CT from September 20, 2017. Findings potentially may be related to secondary congestion related to thrombus. The vascular structures are not evaluated on this noncontrast exam. 3. Redemonstration of mild pattern splenomegaly. 4. No evidence for bowel obstruction. Question mild bowel wall thickening. The bowel wall is not well evaluated on this noncontrast exam. In the emergency department patient became very agitated and aggressive. He required multiple doses of sedating medicines including a total of 6 mg of IV Ativan and 5 mg of Versed. He did end up coming down and the above labs and imaging studies were obtained. He was given 2 L of IV fluids and started on 125 mL of IV maintenance fluid. After few more hours of observation in the emergency department patient again became agitated and violent. He then had quick twitching eye movements according to ER documentation that lasted for approximately 30 seconds he continued to be agitated and violent an additional 2 mg of Ativan and another 5 mg of Versed were ordered. On-call neurology was consulted, and recommended the patient be started on IV Keppra. They also recommended the patient be on CIWA protocol. Patient was then admitted to the hospital for further management. Upon my evaluation when the patient arrived to the medical floor patient was again combative and acting in a violent manner. There were multiple staff members required to help contain the patient. He was quickly started on a Precedex drip with successful sedation. He continued to maintain his own airway and vital signs are stable. His is at bedside and provided all of the history of the events leading up to his hospitalization. She denies that the patient has any recent drug use, and also denies any recent alcohol use. He is a pack of cigarettes per day smoker. He follows up with several specialists at [facility]. She states that his last seizure was last May. He had been doing well enough that his neurologist had decreased his seizure medication a few months ago. He has been compliant with his seizure medicines according to his . She states that he is a full code. Past Med Surg Social Fam HX - Past Medical History Medical history: asthma, diabetes, GERD, hyperlipidemia, hypertension, seizures, TIA Additional medical history: liver cirrhosis. aortic aneurysm Psychiatric history: bipolar - Past Surgical History Surgical History: appendectomy - Social History Smoking Status: Current every day smoker Smokeless Tobacco Status: No Alcohol use: none Drug use: none - Family History Mother Adopted: Yes Father Adopted: Yes Internal Medicine - H&P: Meds Amlodipine Besylate 2.5 mg PO HS 09/20/17 [History] Pravastatin Sodium [Pravachol] 40 mg PO HS 09/20/17 [History] Aspirin [Adult Aspirin] 81 mg PO DAILY 06/26/18 [History] Insulin ASPART [NovoLOG] 16 - 18 unit SQ TID MDD SLIDING SCALE 06/26/18 [History] Liraglutide [Victoza 2-Fidencio] 1.2 mg SQ DAILY 06/26/18 [History] Multivit-Min/FA/Lycopen/Lutein [A Thru Z Select Men 50+ Tablet] 1 tab PO DAILY 06/26/18 [History] Nitroglycerin [Nitrostat] 0.4 mg SL Q5M PRN 06/26/18 [History] Omeprazole [PriLOSEC] 40 mg PO DAILY 06/26/18 [History] Quetiapine Fumarate [Seroquel] 50 mg PO HS 06/26/18 [History] SUMAtriptan Succinate [Imitrex] 100 mg PO DAILY PRN 06/26/18 [History] Topiramate [Topamax] 100 mg PO BID 06/26/18 [History] Trazodone HCl 100 mg PO HS 06/26/18 [History] Insulin DETEMIR [Levemir] 15 unit SQ HS #1 vial 06/27/18 [Rx] Allergy/AdvReac Type Severity Reaction Status Date / Time linagliptin [From Tradjenta] Allergy Hives Verified 03/29/19 20:31 terfenadine [From Seldane] Allergy Rash Verified 03/29/19 20:31 Varenicline [From Chantix] AdvReac Agitated Verified 03/29/19 20:31 All Systems PM: A 10-system review of systems was performed and is negative for pertinent findings except as documented above in the HPI. - Constitutional Vitals: Temp Pulse Resp BP Pulse Ox 97.6 F 105 19 130/80 98 03/30/19 02:22 03/30/19 02:22 03/30/19 02:22 03/30/19 02:22 03/30/19 02:22 General appearance: Present: severe distress. Absent: cooperative, pleasant, answers questions appropriately Exam: Patient actively fighting with nursing and security staff, multiple people required to help contain the patient in the bed. Patient not cooperating with cares. Starting Precedex to help sedate the patient. - Head Head exam: Present: normal inspection - Eye Eye exam: Present: normal appearance - Respiratory Respiratory exam: Present: CTAB. Absent: rales, respiratory distress, rhonchi, wheezes - Cardiovascular Cardiovascular exam: Present: RRR. Absent: diastolic murmur, systolic murmur - GI/Abdominal GI/Abdominal exam: Present: normal bowel sounds, soft. Absent: tenderness - Extremities Exam Extremities exam: Present: warm, radial pulses palpable and symmetrical. Absent: calf tenderness, pedal edema, tenderness - Neurological Exam Neurological exam: Present: strengths equal and symetr throughout. Absent: motor sensory deficit, no focal deficits, facial droop, speech deficit Additional comments: Patient not cooperating with exam, but no noticeable neuro deficits noted on exam. No tremors, no seizure-like activity - Skin Skin exam: Present: dry, normal color, warm Internal Med - H&P Results - Labs CBC & Chem 7: 03/29/19 19:20 03/29/19 19:20 Labs: Short CBC 03/29/19 Range/Units 19:20 WBC 4.5 (4.3-11.1) K/mcL Hgb 14.2 (12.9-16.9) g/dL Hct 40.5 (37.5-50.1) % Plt Count 49 L (140-400) K/mcL Neutrophils # 3.3 (1.6-8.9) K/mcL BMP 03/29/19 19:20 Sodium 136 Potassium 3.5 Chloride 104 Carbon Dioxide 24 BUN 9 Creatinine 0.93 Glucose 388 H Calcium 9.6 Liver Function 03/29/19 Range/Units 19:20 Total Bilirubin 0.9 (0.3-1.0) mg/dL AST 17 (13-39) Units/L ALT 24 (7-52) Units/L Alkaline Phosphatase 56 (34-104) Units/L Albumin 4.2 (3.5-5.7) g/dL Urine 03/29/19 Range/Units 21:24 Urine Color Yellow (Yellow) Urine Clarity Clear (Clear) Urine pH 5.0 (5.0-8.0) pH Units Ur Specific Snyder > 1.030 H (1.010-1.025) Urine Protein Negative (Neg-Trace) mg/dL Urine Glucose (UA) >=1000 H (Normal) mg/dL - ABG Interpretation ABG results: 03/29/19 19:41 VBG pH 7.40 VBG pCO2 38 L VBG pO2 148 H VBG HCO3 24 - Impressions ITS Impressions Abdomen/Pelvis CT 03/29/19 17:44 IMPRESSION: 1. Dependent consolidative changes at the lung bases bilaterally, right greater than left. Findings may reflect atelectasis, however, superimposed infiltrate not entirely excluded. 2. Nonspecific stranding within the retroperitoneum and adjacent to the gallbladder and also extending along the bilateral pericolic gutters and within the presacral soft tissues. There is a small amount of intra-abdominal fluid. Previous contrast enhanced exam demonstrated partial thrombosis of the portal vein with clot extending into the SMV and splenic vein on CT from September 20, 2017. Findings potentially may be related to secondary congestion related to thrombus. The vascular structures are not evaluated on this noncontrast exam. 3. Redemonstration of mild pattern splenomegaly. 4. No evidence for bowel obstruction. Question mild bowel wall thickening. The bowel wall is not well evaluated on this noncontrast exam. D/ / Rolando Farrell MD / Rolando Farrell MD Interpreting Provider: Rolando Farrell MD Chest X-Ray 03/29/19 17:47 IMPRESSION: Negative portable study. D/ / Lorie Walters Cha, MD / Lorie Walters Cha, MD Interpreting Provider: Lorie Walters Cha, MD Head CT 03/29/19 19:02 IMPRESSION: No acute intracranial abnormality. D/ / 03/29/2019 21:33:12 Avel Hernandez / Shari Zhang Interpreting Provider: Avel Hernandez Abdomen/Pelvis CTA 03/29/19 21:50 IMPRESSION: 1. No acute aortic pathology. Mild atherosclerotic plaque. No visceral stenosis. 2. Cirrhosis with portal hypertension including splenomegaly and varices. However, the SMV and portal vein thrombosis noted on previous imaging is not evaluated. 3. Redemonstration of infiltration of the retroperitoneal soft tissues, particularly along the distribution of the DALIA. I believe this is likely related to the patient's portal hypertension. I would recommend a short interval follow-up CT in 3 months time. At this time, imaging should be performed during the portal venous phase. 4. Otherwise stable CT of the abdomen and pelvis. D/ / José Miguel Albert MD / José Miguel Albert MD Interpreting Provider: José Miguel Albert MD - Assessment and Plan (1) Seizure disorder Current Visit: No Status: Chronic Assessment and plan: Patient has history of seizures, possibly had seizure earlier in the day. No seizure activity upon arrival to the medical floor. Possible brief seizure like activity witnessed in the emergency department with eye twitching. Neurology was called, recommended Keppra. Will see patient in the morning. Continue Keppra twice a day Continue to monitor Follow-up neurology recommendations (2) Agitation Current Visit: Yes Status: Acute Assessment and plan: Patient very combative and violent in the emergency department and upon arrival to the medical unit. Precedex initiated and patient has been successfully sedated. Maintaining airway. Continue to monitor Continue Precedex drip (3) Pneumonia Current Visit: Yes Status: Acute Assessment and plan: As seen on abdominal CT imaging, patient did have bilateral infiltrates right greater than left. Considering patient's seizure-like activity possible aspiration cannot be excluded. Emergency department place patient on azithromycin and ceftriaxone. Blood cultures were not obtained prior to this however. Obtain blood cultures Start patient on Zosyn and ciprofloxacin Continue to monitor for worsening signs of infection Qualifiers: Pneumonia type: due to unspecified organism Laterality: bilateral Lung location: unspecified part of lung Qualified Code(s): J18.9 - Pneumonia, unspecified organism (4) DM type 2 (diabetes mellitus, type 2) Current Visit: No Status: Acute Assessment and plan: Patient is an insulin dependent diabetic Monitor sugars Q6H Nothing by mouth Low dose insulin sliding scale as needed Hold home meds. 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 Continue to monitor Qualifiers: Hepatic cirrhosis type: alcoholic cirrhosis Ascites presence: unspecified Qualified Code(s): K70.30 - Alcoholic cirrhosis of liver without ascites (6) Hepatic encephalopathy Current Visit: No Status: Resolved Assessment and plan: Patient does have a slightly elevated ammonia level of 59. Unable to take lactulose due to combativeness and sedation. Once patient is no longer sedated and able to take by mouth lactulose, initiate lactulose treatment. (7) Thrombocytopenia Current Visit: No Status: Chronic Assessment and plan: Platelet level 49. Patient has history of thrombocytopenia due to alcoholic liver cirrhosis. Continue to monitor (8) DVT prophylaxis Current Visit: No Status: Acute Assessment and plan: SCDs considering his thrombocytopenia - Time Spent With Patient Total time spent is greater than 50% in coordination of care (as documented) at patient's floor/unit and/or counseling patient: Greater than 35 minutes
[2019-03-30 03:49] LABS: Hematocrit 38.2 % (37.5-50.1); Immature Platelets 6.5 % (1.1-6.1); Mean Corpuscular Hemoglobin 30.4 pg (28.0-33.3); Mean Corpuscular Volume 89.5 fL (83.0-100.0); Mean Platelet Volume 11.5 fL (9.4-12.4); Red Blood Count 4.27 M/mcL (4.19-5.50); White Blood Count 5.7 K/mcL (4.3-11.1)
[2019-03-30 04:05] LABS: Alanine Aminotransferase 21 Units/L (7-52); Albumin 3.6 g/dL (3.5-5.7); Albumin/Globulin Ratio 1.4 (1.1-2.2); Alkaline Phosphatase 46 Units/L (34-104); Aspartate Amino Transferase 16 Units/L (13-39); BUN/Creatinine Ratio 11 (6-26); Bilirubin,Direct 0.1 mg/dL (0.0-0.2); Bilirubin,Indirect 0.6 mg/dL (0.0-1.2); Bilirubin,Total 0.7 mg/dL (0.3-1.0); Blood Urea Nitrogen 8 mg/dL (6-20); Calcium 8.4 mg/dL (8.6-10.3); Carbon Dioxide 23 mEq/L (23-29); Chloride 110 mEq/L (98-107); Globulin 2.5 g/dL (2.4-3.5); Glucose 273 mg/dL (70-105); Magnesium 1.7 mg/dL (1.6-2.6); Osmolality,Calculated 296 (280-300); Phosphorous 2.7 mg/dL (2.7-4.5); Potassium 3.5 mEq/L (3.5-5.1); Sodium 139 mEq/L (136-145); Total Protein 6.1 g/dL (6.4-8.9); eGFR For African Americans > 60 (> 60); eGFR For Non-African Americans > 60 (> 60)
[2019-03-30 04:07] LABS: INR 1.4; Prothrombin Time 15.4 Seconds (9.4-12.1)
[2019-03-30 04:10] LABS: Activated Partial Thrombo Time 30.1 Seconds (26.0-36.0)
[2019-03-30] MEDS: Insulin LISPRO 300 UNITS/3 ML VIAL SQ SCH ×3 (06:22→17:12)
[2019-03-30] MEDS: Piperacillin/Tazobactam 3.375 GM in 0.9 % Sodium Chloride Mini Bag 100 ML IVPB SCH ×2 (07:25→17:15)
[2019-03-30] MEDS: 0.9 % Sodium Chloride 1,000 ML IVC SCH ×2 (08:32→22:00)
--- NOTE | 2019-03-30 11:10 | Neurology - Consult Note ---
<Philip Little J - Last Filed: 03/30/19 10:55> Date of Encounter: 03/30/19 Time of Encounter: 10:55 Assessment and Plan (1) Seizure disorder Current Visit: No Status: Chronic History of seizure disorder Neurology has been consulted for seizures Patient was witnessed to have seizure event yesterday afternoon while shopping with Typical seizure symptoms include unresponsive phase and staring spells and typically results in as the significant other states that's paralysis of the left side thereafter; yesterdays events were typical of his seizures After yesterday afternoon's seizures the patient became very agitated and combative requiring 10 mg IV Ativan over 5 different doses and a Precedex drip Currently he is obtunded and is recently been titrated off Precedex. As such, the neurological exam is limited. He has undergone EEG which did not appear to show any epileptiform activity We will obtain MRI of the brain He is currently on Topamax at home for seizures and his reports adequate seizure control that he sees [facility] neurology for seizures While inpatient we will hold Topamax and start IV Keppra 500 mg twice a day Continue with seizure precautions Continue with as needed Ativan for breakthrough seizures Continue with frequent Neurological assessment Continue with telemetry monitoring Neurology will continue to follow History of Present Illness Chief complaint: Altered mental status and seizure-like activity HPI: Mr. Munoz is a 43 year old male with a PMH of asthma, DM, HLD, HTN, seizures, TIA, cirrhosis and history of aortic aneurysm. The patient was witnessed to have a seizure yesterday while shopping with his . Currently, the patient is obtunded after receiving 10 mg total of Ativan and being on a Precedex drip overnight. He is unable to provide history of present illness. However, significant other is at bedside reports that while shopping he reported he was feeling nauseous and having abdominal pain and subsequently sat down on a bench outside to wait for her. Upon finishing her shopping trip she went out and noted that her was unresponsive and having hand shaking. She notes that he has as history of seizures and has been treated at [facility] for this previously and is currently taking Topamax with adequate seizure control. His most recent seizure was approximately 1 month ago. She states that normally his seizures present as unresponsive episodes of staring spells" of hand shaking lasting approximately 30 seconds to 1 minute duration which thereafter he returns to normal without a postictal phase. She notes that this is the way presented yesterday as well. However, per the ED note it appears the patient was postictal upon arrival to the ED. Yesterday evening after having seizures the patient became very agitated and combative requiring multiple doses of IV Ativan and Precedex. I reviewed the CT of the head and was found to be unremarkable for acute intracranial abnormality. Review of vital signs reveal that he was hypotensive overnight but this is improving after stopping the Precedex drip. With the exceptions of thrombus cytopenia with a platelet count of 44 the patient's CBC was unremarkable. The chemistry panel revealed hyperglycemia but was otherwise unremarkable. Mild ammonia elevation of 59 but his correct this morning at a level of 46. UA unremarkable and UDS positive for BZD. Past Med Surg Social Fam HX - Past Medical History Medical history: asthma, diabetes, GERD, hyperlipidemia, hypertension, seizures, TIA Additional medical history: liver cirrhosis. aortic aneurysm Psychiatric history: bipolar - Past Surgical History Surgical History: appendectomy - Social History Smoking Status: Current every day smoker Smokeless Tobacco Status: No Alcohol use: none Drug use: none - Family History Mother Adopted: Yes Father Adopted: Yes Medications and Allergies Amlodipine Besylate 2.5 mg PO HS 09/20/17 [History] Pravastatin Sodium [Pravachol] 40 mg PO HS 09/20/17 [History] Aspirin [Adult Aspirin] 81 mg PO DAILY 06/26/18 [History] Insulin ASPART [NovoLOG] 0 - 20 unit SQ TIDWM MDD SLIDING SCALE 06/26/18 [History] Liraglutide [Victoza 2-Fidencio] 1.2 mg SQ DAILY 06/26/18 [History] Multivit-Min/FA/Lycopen/Lutein [A Thru Z Select Men 50+ Tablet] 1 tab PO DAILY 06/26/18 [History] Nitroglycerin [Nitrostat] 0.4 mg SL Q5M PRN 06/26/18 [History] Omeprazole [PriLOSEC] 40 mg PO DAILY 06/26/18 [History] SUMAtriptan Succinate [Imitrex] 100 mg PO DAILY PRN 06/26/18 [History] Topiramate [Topamax] 100 mg PO BID 06/26/18 [History] Trazodone HCl 100 mg PO HS 06/26/18 [History] Insulin Degludec [Tresiba] 60 unit SQ DAILY 03/30/19 [History] Metformin HCl [Metformin HCl ER] 500 mg PO BID 03/30/19 [History] Allergy/AdvReac Type Severity Reaction Status Date / Time linagliptin [From Tradjenta] Allergy Hives Verified 03/29/19 20:31 terfenadine [From Seldane] Allergy Rash Verified 03/29/19 20:31 Varenicline [From Chantix] AdvReac Agitated Verified 03/29/19 20:31 ROS unobtainable: due to mental status All Systems: The remainder of the systems were reviewed and are negative Physical Examination - Vital Signs Vital Signs: Initial Vital Signs Temp Pulse Resp BP Pulse Ox 98.6 F 125 19 178/94 96 03/29/19 17:34 03/29/19 17:34 03/29/19 17:34 03/29/19 17:34 03/29/19 17:34 - Exam Exam: Examination: Limited by patient's altered mental status General Examination: *CONSTITUTIONAL: Obtunded, arousable to painful stimulus *EYES: pupils equal but dilated at 5 mm, round, reactive to light and accommodation, conjunctiva clear without masses or ulcerations, fundi normal. *CARDIOVASCULAR: RRR, S1, S2 no peripheral edema, distal temperature normal, dorsalis pedis pulses normal. Refer to vital signs * MUSCULOSKELETAL: *GAIT AND STATION: Deferred *ASSESSMENT OF MUSCLE STRENGTH IN THE UPPER AND LOWER EXTREMITIES unable to assess *CN II optic fundi were normal, no papilledema noted. *CN III,IV, PERRLA , doll's eyes intact, corneal reflex intact *CN V shows normal sensation and jaw opens symmetrically. *CN VII shows normal facial movement symmetrically upon grimacing *REFLEXES: deep tendon reflexes were normal and symmetrical , grade 1/4 diffusely, no pathological reflexes were noted *PAIN LEVEL 0/10 Results - Laboratory Findings CBC and BMP: 03/30/19 03:18 03/30/19 03:18 Abnormal lab findings: Abnormal lab results Plt Count 44 K/mcL (140-400) L 03/30/19 03:18 Platelet Estimate Decreased (Normal) L 03/29/19 19:20 Immature Plt Fraction 6.5 % (1.1-6.1) H 03/30/19 03:18 PT 15.4 Seconds (9.4-12.1) H 03/30/19 03:18 VBG pCO2 38 mmHg (41-51) L 03/29/19 19:41 VBG pO2 148 mmHg (25-50) H 03/29/19 19:41 Chloride 110 mEq/L (98-107) H 03/30/19 03:18 Glucose 273 mg/dL (70-105) H 03/30/19 03:18 POC Glucose 241 mg/dL (70-99) H 03/30/19 02:05 Calcium 8.4 mg/dL (8.6-10.3) L 03/30/19 03:18 Ammonia 59 mcmol/L (16-53) H 03/29/19 19:20 Serum Total Protein 6.1 g/dL (6.4-8.9) L 03/30/19 03:18 Ur Specific Meadow > 1.030 (1.010-1.025) H 03/29/19 21:24 Urine Glucose (UA) >=1000 mg/dL (Normal) H 03/29/19 21:24 Salicylates < 2.5 mg/dL (15.0-30.0) L 03/29/19 19:20 Acetaminophen < 10 mcg/mL (10-20) L 03/29/19 19:20 U Benzodiazepines Scrn Positive ng/mL (Iuofhs=276) H 03/29/19 21:24 - Diagnostic Findings Additional findings: CT/CT head/brain wo con IMPRESSION: No acute intracranial abnormality. Consult Discharge Plan - Plan Referrals: José Miguel Kelsey MD [Primary Care Provider] - <Antionette Lennon I - Last Filed: 03/30/19 15:22> Date of Encounter: 03/30/19 Assessment and Plan (1) Seizure disorder Current Visit: No Status: Chronic I have personally performed a face to face diagnostic evaluation, including HPI, EXAM, which is included in the Assesment and plan, which was discussed with Philip Little CNP, I agree with the above outlined documentation. Though there is a concern that patient may had a seizure but considering his history and behavior patient is exhibiting is not typical of seizure or of postictal state , in fact it is quite suspicious of withdrawal from stimulant more than alcohol and certainly drawls can cause seizures as well CT of the head is negative Currently patient is on sedation, we will do a stat EEG to make sure he is not having any convulsive activity Continue on Keppra that is been is started in the emergency room as he does have a history of seizures in the past Should be on withdrawal precautions May need help from psychiatrist considering his agitated behavior Antionette Lennon MD. NeurologyI History of Present Illness HPI: Mr. Munoz is a 43 year old male All Systems: The remainder of the systems were reviewed and are negative Physical Examination - Vital Signs Vital Signs: Initial Vital Signs Temp Pulse Resp BP Pulse Ox 98.6 F 125 19 178/94 96 03/29/19 17:34 03/29/19 17:34 03/29/19 17:34 03/29/19 17:34 03/29/19 17:34 Results - Laboratory Findings CBC and BMP: 03/30/19 03:18 03/30/19 03:18 Abnormal lab findings: Abnormal lab results Plt Count 44 K/mcL (140-400) L 03/30/19 03:18 Platelet Estimate Decreased (Normal) L 03/29/19 19:20 Immature Plt Fraction 6.5 % (1.1-6.1) H 03/30/19 03:18 PT 15.4 Seconds (9.4-12.1) H 03/30/19 03:18 VBG pCO2 38 mmHg (41-51) L 03/29/19 19:41 VBG pO2 148 mmHg (25-50) H 03/29/19 19:41 Chloride 110 mEq/L (98-107) H 03/30/19 03:18 Glucose 273 mg/dL (70-105) H 03/30/19 03:18 POC Glucose 330 mg/dL (70-99) H 03/30/19 05:54 Calcium 8.4 mg/dL (8.6-10.3) L 03/30/19 03:18 Ammonia 59 mcmol/L (16-53) H 03/29/19 19:20 Serum Total Protein 6.1 g/dL (6.4-8.9) L 03/30/19 03:18 Ur Specific Meadow > 1.030 (1.010-1.025) H 03/29/19 21:24 Urine Glucose (UA) >=1000 mg/dL (Normal) H 03/29/19 21:24 Salicylates < 2.5 mg/dL (15.0-30.0) L 03/29/19 19:20 Acetaminophen < 10 mcg/mL (10-20) L 03/29/19 19:20 U Benzodiazepines Scrn Positive ng/mL (Uersut=[id number]) H 03/29/19 21:24
[2019-03-30] MEDS ORDERED: Ammonia Inhalant AMPUL IH ONE (11:30)
--- NOTE | 2019-03-30 11:37 | Event Note ---
<Nayeli Mcneal - Last Filed: 03/30/19 11:37> Date of Encounter: 03/30/19 <Madhavi Tineo - Last Filed: 03/30/19 16:59> Date of Encounter: 03/30/19 Time of Encounter: 16:52 I evaluated the patient initially earlier this morning when he was on Precedex drip. He was very somnolent and was unable to obtain any history or any other response from him. Discussed plan of care with his . Later in the day, he became agitated up in the Precedex drip was turned down. As such she was placed back on Precedex drip. Around 3:30 PM, fransisco claudio was called as patient apparently became agitated and was threatening harm to nursing staff and had to be physically restrained. When I arrived at patient's bedside, he was being held down by security and he was making threats and and using foul language. I ordered 5 mg of Haldol to be given intramuscularly. Patient continued to be agitated and so I ordered 20 mg of Geodon which was given to the patient. He seemed to calm down after that. Precedex was still running at max dose for 2N unit and was not helping keep the patient calm. Given his threats of harm to staff and aggressive physical behavior with concern for harm to self and others, we have placed him on a psychiatric hold with pink slip till he can be evaluated by psychiatry. I discussed this with Dr. Gamboa, Dr. Lennon and per our examination, patient does not appear to be having any signs of withdrawal or neurologic issues that are causing his aggressive behavior. I discussed this with psychiatrist battalion chief Dr. Yao. Dr. Yao will evaluate him in the morning and in the meantime recommended using Zyprexa 10 mg or Geodon 20 mg every 6 hours to treat his agitation/ or aggressive behaviour.
[2019-03-30] MEDS: Dexmedetomidine HCl 400 MCG/100 ML MLS IVC SCH ×2 (11:42→18:21)
--- NOTE | 2019-03-30 11:48 | Electrocardiograph Report ---
[facility] Test Date: 2019-03-29 Pat Name: Gaetano Munoz Department: EXAM6 Room: 2N14 Gender: M Journal Clerk: : 1975 Requested By: Sorin Holt Order Number: [id number] Reading MD: Jeremy Rick Measurements Intervals Peggs Rate: 125 P: 77 WA: 164 QRS: 79 QRSD: 90 T: -80 QT: 290 QTc: 419 Interpretive Statements Sinus tachycardia Probable left atrial enlargement Borderline repolarization abnormality Baseline wander in lead(s) II aVR Electronically Signed On 03-30-2019 11:46:25 EDT by Jeremy Rick
--- NOTE | 2019-03-30 15:20 | EEG/EMG/Oth Biometrics Report ---
EEG Procedure Report EEG Procedure: Routine EEG Procedure Note: This is a routine 21 channel digital EEG performed utilizing 10- 20 international electrode placement system. FINDINGS: Patient has a predominant waking background frequency that is average voltage 8- 12 Hertz beta activity in the posterior region, normal amplitude symmetrical over the both hemispheres reactive record continued to show alpha activity intermixed with beta off and on, no abnormal activity recorded, predominantly no evidence of any spike wave discharges or any lateralizing abnormalities, Photic stimulation did not produce any convulsive response. Intermittent EMG artifacts were noted. Stage II sleep was not achieved. Patient Remain unresponsive with multiple episodes of the stimulation noted during this study without any seizures or any abnormal activity Impression: Normal awake drowsy electroencephalogram, with the exception of beta activity which is a nonspecific pattern mostly seen due to the use of benzodiazepine and barbiturates. No epileptiform discharges or any other paroxysmal activities noted.
[2019-03-30] MEDS ORDERED: Ziprasidone 20 MG in Water for inj. (sterile) 1 ML IM ONE (15:33)
[2019-03-30] MEDS ORDERED: Haloperidol Lactate 5 MG/ML VIAL ONE (15:40)
[2019-03-30] MEDS ORDERED: Haloperidol Lactate 5 MG/ML VIAL IM ONE (15:43)
[2019-03-30] MEDS: OLANZapine 10 MG VIAL IM SCH (18:22)
--- NOTE | 2019-03-30 19:53 | Event Note ---
Date of Encounter: 03/30/19 Time of Encounter: 16:50 I was asked by the primary team to come assess patient and consider transfer to ICU for further sedation and/or management of patient. There was initial concern that he may be going through alcohol withdrawal and/or drug withdrawal. I reviewed his chart, labs, and assessed patient. I met with Dr. Lennon and Dr. Tineo. Based upon my interview, exam, and chart review and lab review, I do not feel that he is withdrawing from alcohol, drugs, or has another medical issue at this time. I believe this is a psychiatric issue and emergency. I therefore recommended and contacted Dr. Yao (psychiatry) and requested her assistance to the primary team. Patient did threaten staff, both verbally and, reportedly, physically. As such, he has been pink slipped by the primary team, and I agree with the decision. Patient poses a threat to the hospital staff and others around him, including security guards. Based upon my evaluation and discussions with the two above physicians, I do not feel he is appropriate to transfer to ICU for ongoing sedation, as he is not exhibiting any signs of drug or alcohol withdrawal. This appears to be psychiatric and behavioral in nature. Therefore, I will defer any further recommendations to psychiatry.
--- NOTE | 2019-03-31 00:27 | Event Note ---
Date of Encounter: 03/31/19 Time of Encounter: 00:25 Patient is seen and examined face to face every 4 hours throughout the night. Patient is sedated with Precedex in 4 locked restraints. Given patient's very hostile behavior the restraints was renewed until assessment by psychiatry is given.
[2019-03-31] MEDS: Insulin LISPRO 300 UNITS/3 ML VIAL SQ SCH ×2 (01:37→06:39)
[2019-03-31] MEDS: Piperacillin/Tazobactam 3.375 GM in 0.9 % Sodium Chloride Mini Bag 100 ML IVPB SCH ×3 (01:40→16:46)
[2019-03-31] MEDS: OLANZapine 10 MG VIAL IM SCH ×2 (01:57→05:53)
[2019-03-31] MEDS: Dexmedetomidine HCl 400 MCG/100 ML MLS IVC SCH ×2 (01:58→13:35)
[2019-03-31] MEDS ORDERED: OLANZapine 10 MG VIAL IM PRN (08:17)
[2019-03-31 08:59] LABS: Basophils % 0.2 %
[2019-03-31 09:01] LABS: Eosinophils # 0.1 K/mcL (0.0-0.6); Hemoglobin 13.7 g/dL (12.9-16.9); Immature Granulocytes % 0.2 % (0-4); Lymphocytes # 0.5 K/mcL (0.6-4.6); Mean Corpuscular HGB Conc 35.1 g/dL (31.6-35.5); Mean Corpuscular Hemoglobin 31.6 pg (28.0-33.3); Mean Corpuscular Volume 90.1 fL (83.0-100.0); Mean Platelet Volume 10.6 fL (9.4-12.4); Monocytes # 0.4 K/mcL (0.0-1.3); Monocytes % 8.2 %; Neutrophils # 3.4 K/mcL (1.6-8.9); Red Blood Count 4.33 M/mcL (4.19-5.50); Red Cell Distribution Width 12.8 % (11.5-14.5); Segmented Neutrophils % 77.4 %; White Blood Count 4.4 K/mcL (4.3-11.1)
[2019-03-31 09:02] LABS: Platelet Count 36 K/mcL (140-400)
--- NOTE | 2019-03-31 09:10 | Neurology Progress Note ---
Date of Encounter: 03/31/19 Time of Encounter: 09:08 Assessment and Plan (1) Seizure Current Visit: Yes Status: Acute - Known history of seizure disorder - Follows with neurologist at [facility] - Home medication of Topamax, no other antiepileptics on chart review however this has not reconciled - Per chart review, most recent seizure was in 2018 - Potential etiologies of lower seizure threshold include drug intoxication/withdrawal, hyperglycemia, medication noncompliance, less likely infection - This was a witnessed seizure yesterday by his who states this is consistent with previous - UDS positive only for benzodiazepines which were used to sedate the patient in the emergency department. - Remainder of labs unremarkable for electrolytes, UA. Glucose elevated on admission at 489. - Keppra started and patient is not currently able to take by mouth medications - CT of the head in the emergency department shows no acute intracranial abn ormality - EEG does not show any epileptiform activity but does show nonspecific beta wave changes which may be related to benzodiazepine use - Patient also currently sedated due to aggression and agitation with Precedex and antipsychotics Plan - Continue Keppra while unable to tolerate by mouth medications - Continue frequent neurological assessment - Appreciate the recommendations of psychiatry as far as patient's altered mental status - Continue seizure precautions - Treatment of underlying metabolic disorders per primary team (2) Altered mental status Current Visit: Yes Status: Acute - Patient continues to demonstrate aggressive, threatening behavior following his observed seizure - Baseline is unclear however patient does have a documented history of aggressive behavior - Etiology is unclear at this time, suspect psychiatric in nature - Reportedly has a medical history of cirrhosis, bipolar disorder - There is no lactulose, antipsychotics, mood stabilizers on his home medication list, however this has not yet been reconciled - CT of the head does not show acute process. 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 - No obvious infectious etiology, however patient is on abx for possible PNA Plan - Psychiatry has been consulted, appreciate recommendations - Consider MRI in future once patient is more cooperative, however this will likely not guide changer. CT does not show acute abnormality Qualifiers: Altered mental status type: disorientation Qualified Code(s): R41.0 - Disorientation, unspecified Subjective Principal diagnosis: Altered mental status, Seizures Interval history: Patient was seen and examined at bedside this morning. Overnight, patient did become increasingly agitated, aggressive, threatening both verbally and physically to harm to staff members. He did require 2 doses of olanzapine in a ddition to his Precedex drip. He is currently sedated and unable to answer questions. He does grunt when asked questions but otherwise does not dissipate in interview. There is no family present at bedside at this time. Objective - Constitutional Vitals: Temp Pulse Resp BP Pulse Ox 97.4 F L 69 14 124/89 96 03/31/19 09:00 03/31/19 09:00 03/31/19 09:00 03/31/19 09:00 03/31/19 09:00 General appearance: Present: A&O X 0 (sedated. responds to some questions with grunts. ), no acute distress. Absent: answers questions appropriately - Head Head exam: Present: atraumatic, normal inspection, normocephalic - Neurological Exam Sensorimotor examination: Absent: intact (unable to assess) Motor Examination: Absent: other (unable to assess, sedated. does not follow commands) Sensation intact: Present: other (unable to assess, does not participate in in terview) Posture: Present: other (none, in restraints) Reflexes: Brachioradialis: 1+, Patella: 1+ Mental Status Examination: Present: does not follow commands, not reliable historian. Absent: awake, alert, oriented to person, oriented to place, oriented to time, follows commands appropriately, answers questions appropriate ly Cerebellar examination: Absent: no dysmetria (unable to assess, does not participate in interview) Results - Laboratory Findings CBC and BMP: 03/31/19 08:45 03/30/19 03:18 Abnormal lab findings: Abnormal lab results Plt Count 36 K/mcL (140-400) L 03/31/19 08:45 Lymphocytes # 0.5 K/mcL (0.6-4.6) L 03/31/19 08:45 Platelet Estimate Decreased (Normal) L 03/29/19 19:20 Immature Plt Fraction 6.5 % (1.1-6.1) H 03/30/19 03:18 PT 15.4 Seconds (9.4-12.1) H 03/30/19 03:18 VBG pCO2 38 mmHg (41-51) L 03/29/19 19:41 VBG pO2 148 mmHg (25-50) H 03/29/19 19:41 Chloride 110 mEq/L (98-107) H 03/30/19 03:18 Glucose 273 mg/dL (70-105) H 03/30/19 03:18 POC Glucose 215 mg/dL (70-99) H 03/30/19 23:54 Calcium 8.4 mg/dL (8.6-10.3) L 03/30/19 03:18 Ammonia 59 mcmol/L (16-53) H 03/29/19 19:20 Serum Total Protein 6.1 g/dL (6.4-8.9) L 03/30/19 03:18 Ur Specific [place] > 1.030 (1.010-1.025) H 03/29/19 21:24 Urine Glucose (UA) >=1000 mg/dL (Normal) H 03/29/19 21:24 Salicylates < 2.5 mg/dL (15.0-30.0) L 03/29/19 19:20 Acetaminophen < 10 mcg/mL (10-20) L 03/29/19 19:20 U Benzodiazepines Scrn Positive ng/mL (Rfyjmd=189) H 03/29/19 21:24 Consult Discharge Plan - Plan Referrals: José Miguel Kelsey MD [Primary Care Provider] -
[2019-03-31] MEDS ORDERED: Insulin LISPRO 300 UNITS/3 ML VIAL SQ SCH (09:12)
[2019-03-31 09:25] LABS: BUN/Creatinine Ratio 15 (6-26); Blood Urea Nitrogen 10 mg/dL (6-20); Calcium 8.7 mg/dL (8.6-10.3); Carbon Dioxide 23 mEq/L (23-29); Chloride 110 mEq/L (98-107); Creatine Kinase 223 Units/L (30-223); Glucose 281 mg/dL (70-105); Osmolality,Calculated 297 (280-300); Potassium 3.6 mEq/L (3.5-5.1); Sodium 139 mEq/L (136-145); eGFR For African Americans > 60 (> 60); eGFR For Non-African Americans > 60 (> 60)
--- NOTE | 2019-03-31 09:54 | Internal Med Progress Note ---
<Nayeli Mcneal E - Last Filed: 03/31/19 13:22> Hospitalist Progress Note - Encounter Date of Encounter: 03/31/19 Time of Encounter: 08:25 - Subjective Interval History: Mr. Lou is a 43-year-old male initially presented post ictal from proposed seizure. Patient was seen and examined at bedside today. Patient was sedated at the time. Unable to do review of symptoms due to this. - Exam Vitals: Temp Pulse Resp BP Pulse Ox 97.4 F L 69 14 124/88 96 03/31/19 09:00 03/31/19 09:00 03/31/19 09:00 03/31/19 09:00 03/31/19 09:00 Exam: General: sedated, breathing easily, no acute distress Head: normocephalic, atraumatic Eyes: SOPHIA, no icterus Cardio: RRR, no murmurs, rubs, or gallops Respiratory: CTAB, no wheezing, rhonchi, rales Abd: normal bowel sounds, no guarding or rigidity Extremities: no pedal edema, pulses equal bilaterally, warm Skin: warm, dry, intact - Assessment and Plan (1) Thrombocytopenia Current Visit: No Status: Chronic Assessment and Plan: Daily level initially 49 is decreased to 36 Likely secondary to alcoholic liver cirrhosis Continue to monitor (2) Cirrhosis Current Visit: No Status: Chronic Assessment and Plan: Secondary to alcoholism Patient follows with our issue Continue to monitor (3) Hepatic encephalopathy Current Visit: No Status: Resolved Assessment and Plan: Slightly elevated ammonia level on admission Patient has not received a lactulose due to sedation and combativeness Continue monitor patient for signs of hepatic encephalopathy We will re-evaluate once patient is no longer sedated (4) Seizure disorder Current Visit: No Status: Chronic Assessment and Plan: Patient has a history of seizures, possible seizure on day of admission He was on Topamax for seizures Brief seizure-like activity was noticed on the ED with some eye twitching Neurology recommends continuing Keppra (5) DVT prophylaxis Current Visit: No Status: Acute Assessment and Plan: EPCDs (6) DM type 2 (diabetes mellitus, type 2) Current Visit: No Status: Acute Assessment and Plan: Patient's glucoses continue to be elevated Increased to medium sliding scale every 6 hours (7) Pneumonia Current Visit: Yes Status: Acute Assessment and Plan: Possible pneumonia seen on CT imaging is bilateral infiltrate traits right greater than left Considering the patient's seizure-like activity and risk for aspiration antibiotics were started Patient started on Zosyn and ciprofloxacin Continue to monitor for worsening signs of infection (8) Altered mental status Current Visit: Yes Status: Acute Assessment and Plan: Possibly secondary to postictal state, hepatic encephalopathy, psychiatric illness Patient had to be sedated both in the ER and then again yesterday after becoming violent with staf and had risk of harm to self and others Continue use of Zyprexa and Precedex drip Psychiatry has been consulted and we appreciate recommendations DVT Prophylaxis: ECPDs - Time Spent with Patient Total time spent is greater than 50% in coordination of care (as documented) at patient's floor/unit and/or counseling patient: Internal Medicine: Result - Labs CBC & Chem 7: 03/31/19 08:45 03/31/19 08:45 Labs: Short CBC 03/31/19 Range/Units 08:45 WBC 4.4 (4.3-11.1) K/mcL Hgb 13.7 (12.9-16.9) g/dL Hct 39.0 (37.5-50.1) % Plt Count 36 L (140-400) K/mcL Neutrophils # 3.4 (1.6-8.9) K/mcL BMP 03/31/19 08:45 Sodium 139 Potassium 3.6 Chloride 110 H Carbon Dioxide 23 BUN 10 Creatinine 0.66 L Glucose 281 H Calcium 8.7 - ABG Interpretation ABG results: PT/INR, D-dimer PT 15.4 Seconds (9.4-12.1) H 03/30/19 03:18 - Impressions Impressions Abdomen/Pelvis CTA 03/29/19 21:50 IMPRESSION: 1. No acute aortic pathology. Mild atherosclerotic plaque. No visceral stenosis. 2. Cirrhosis with portal hypertension including splenomegaly and varices. However, the SMV and portal vein thrombosis noted on previous imaging is not evaluated. 3. Redemonstration of infiltration of the retroperitoneal soft tissues, particularly along the distribution of the DALIA. I believe this is likely related to the patient's portal hypertension. I would recommend a short interval follow-up CT in 3 months time. At this time, imaging should be performed during the portal venous phase. 4. Otherwise stable CT of the abdomen and pelvis. D/ / 03/30/2019 07:03:46 José Miguel Albert MD / monica Interpreting Provider: José Miguel Albert MD Consult Discharge Plan - Plan Referrals: José Miguel Kelsey MD [Primary Care Provider] - <Madhavi Tineo - Last Filed: 03/31/19 13:42> Hospitalist Progress Note - Encounter Date of Encounter: 03/31/19 Time of Encounter: 10:00 - Exam Vitals: Temp Pulse Resp BP Pulse Ox 97.7 F 77 14 124/88 94 03/31/19 13:00 03/31/19 13:00 03/31/19 13:00 03/31/19 13:00 03/31/19 13:00 - Assessment and Plan (1) Thrombocytopenia Current Visit: No Status: Chronic (2) Cirrhosis Current Visit: No Status: Chronic (3) Agitation Current Visit: Yes Status: Acute (4) Hepatic encephalopathy Current Visit: No Status: Resolved (5) Seizure disorder Current Visit: No Status: Chronic (6) DVT prophylaxis Current Visit: No Status: Acute (7) DM type 2 (diabetes mellitus, type 2) Current Visit: No Status: Acute (8) Pneumonia Current Visit: Yes Status: Acute - Time Spent with Patient Total time spent is greater than 50% in coordination of care (as documented) at patient's floor/unit and/or counseling patient: Internal Medicine: Result - Labs CBC & Chem 7: 03/31/19 08:45 03/31/19 08:45 Labs: Short CBC 03/31/19 Range/Units 08:45 WBC 4.4 (4.3-11.1) K/mcL Hgb 13.7 (12.9-16.9) g/dL Hct 39.0 (37.5-50.1) % Plt Count 36 L (140-400) K/mcL Neutrophils # 3.4 (1.6-8.9) K/mcL BMP 03/31/19 08:45 Sodium 139 Potassium 3.6 Chloride 110 H Carbon Dioxide 23 BUN 10 Creatinine 0.66 L Glucose 281 H Calcium 8.7 - ABG Interpretation ABG results: PT/INR, D-dimer PT 15.4 Seconds (9.4-12.1) H 03/30/19 03:18 - Impressions Impressions Abdomen/Pelvis CTA 03/29/19 21:50 IMPRESSION: 1. No acute aortic pathology. Mild atherosclerotic plaque. No visceral stenosis. 2. Cirrhosis with portal hypertension including splenomegaly and varices. However, the SMV and portal vein thrombosis noted on previous imaging is not evaluated. 3. Redemonstration of infiltration of the retroperitoneal soft tissues, particularly along the distribution of the DALIA. I believe this is likely related to the patient's portal hypertension. I would recommend a short interval follow-up CT in 3 months time. At this time, imaging should be performed during the portal venous phase. 4. Otherwise stable CT of the abdomen and pelvis. D/ / 03/30/2019 07:03:46 José Miguel Albert MD / monica Interpreting Provider: José Miguel Albert MD - Attending Attestation I saw evaluated and examined this patient and reviewed objective data including labs and my medical decision-making was reviewed with the Resident Physician, Nayeli Mcneal. I agree with the documented findings, disposition and treatment plan as described except to any changes set forth below. We independ ently had [id number] contact with the patient. Patient lying down in bed. Has not had further episodes of agitation since yesterday afternoon. Awaiting psychiatric consultation. Patient is medically stable. Continue to use Zyprexa as needed for symptom control if patient develops agitation. Pneumonia based on initial chest x-ray findings. Clinically patient does not appear to have any further episodes of fevers or chills. Would complete a 5 day course of antibiotics and then stop. CPK levels are normal. Patient does have underlying cirrhosis and ammonia levels have improved. He does have related thrombocytopenia. Avoid subcutaneous heparin. DVT prophylaxis with SCDs. Continue Keppra for now but neurology recommends stopping it prior to discharge and resuming Topamax. Will cancel MRI. EEG was negative. <Nayeli Mcneal - Last Filed: 03/31/19 13:22> (2) Cirrhosis Qualifiers: Hepatic cirrhosis type: alcoholic cirrhosis Ascites presence: unspecified Qualified Code(s): K70.30 - Alcoholic cirrhosis of liver without ascites (6) DM type 2 (diabetes mellitus, type 2) Qualifiers: Diabetes mellitus termite control servicer insulin use: with longterm use Diabetes mellitus complication status: with hyperglycemia Qualified Code(s): E11.65 - Type 2 diabetes mellitus with hyperglycemia; Z79.4 - jail (current) use of insulin (7) Pneumonia Qualifiers: Pneumonia type: due to unspecified organism Laterality: bilateral Lung location: unspecified part of lung Qualified Code(s): J18.9 - Pneumonia, unspecified organism (8) Altered mental status Qualifiers: Altered mental status type: disorientation Qualified Code(s): R41.0 - Disorientation, unspecified <Ameda,ujan - Last Filed: 03/31/19 13:42> (2) Cirrhosis Qualifiers: Hepatic cirrhosis type: alcoholic cirrhosis Ascites presence: unspecified Qualified Code(s): K70.30 - Alcoholic cirrhosis of liver without ascites (7) DM type 2 (diabetes mellitus, type 2) Qualifiers: Diabetes mellitus longterm insulin use: with termite control servicer use Diabetes mellitus complication status: with hyperglycemia Qualified Code(s): E11.65 - Type 2 diabetes mellitus with hyperglycemia; Z79.4 - jail (current) use of insulin (8) Pneumonia Qualifiers: Pneumonia type: due to unspecified organism Laterality: bilateral Lung location: unspecified part of lung Qualified Code(s): J18.9 - Pneumonia, unspecified organism
--- NOTE | 2019-03-31 11:05 | Consult Note ---
Date of Encounter: 03/31/19 Time of Encounter: 11:04 Assessment & Recommendation (1) Antisocial personality disorder Current visit: Yes Status: Acute Assessment & Recommendation: Psychiatry consult initially placed yesterday afternoon due to extreme agitation and combative behavior. Patient reportedly threatened several staff members, and on evaluation this morning, endorses that he did want to harm "that security rep last night because he was a rizwan". Patient was unable to provide any information regarding the events that prompted his hospital admission, and is very somnolent, quickly appearing to fall asleep during interview. On reevaluation this afternoon, patient is more awake, though he does still appear to nod off during conversation. He endorses having been diagnosed with bipolar disorder and manic depression in the past, but denies any previous psychiatric hospitalization. He denies any suicidal ideation, and voices that he is no longer wanting to harm anyone. Patient does not meet criteria for inpatient psychiatric admission, as he is alert and oriented and mentating appropriately. He denies any suicidal or homicidal idea, and thus does not meet criteria for a pink slip. Should patient remain in the hospital overnight, psychiatry will continue to follow. If patient again becomes agitated and/or combative, continue use of PRN medications as suggested yesterday. (2) Bipolar disorder Current visit: Yes Status: Acute Assessment & Recommendation: Historical diagnosis via chart review and patient interview; however, suspect that this is likely an inaccurate diagnosis. Patient has never been hospitalized with a manic episode, and denies having ever had suicidal ideation or psychosis associated with this. He reports that he is taking medication for this that was prescribed to him by his outpatient provdier, whose name he is unable to recall at this time. Patient reports that he fills his medications at [facility], though he does not appear to have any mood stabilizing medications filled at that location per pharmacy review. At this time, do not recommend initiating medical therapy for this problem; outpatient followup with established psychiatrist recommended. Qualifiers: Active/Remission status: remission status unspecified Qualified Code(s): F31.9 - Bipolar disorder, unspecified History of Present Illness Requesting Physician: Abby Unger DO Reason for consult: Psychosis History of present illness: Mr. Munoz is a 43 year old male with a history of asthma, diabetes, GERD, HTN, HLD, and liver cirrhosis who was brought to the ED for evaluation after a "seiz[place]" that [place]. Patient was accompanied by his , who provided information regarding these events, as patient was initially unresponsive in the ED, presumably due to being in a post-ictal state. While in the ED, patient became combative, and required sedation in order to obtain imaging studies. After arrival to the hospital floor, patient again became agitated and aggressive, and was subsequently started on a precedex drip for sedation. Yesterday afternoon, attempts were made for the patient to be titrated down on precedex; however, he became extremely aggressive and combative, threatening multiple staff members, which result in a "code gonzález" being called. Psychiatry consult was placed for recommendations regarding medica tion management and for evaluation of patient's suspected psychosis. On evaluation this morning, patient was noted to be sedated on precedex, though he did open his eyes to voice. He attempted to answer questions; however, he quickly began to mumble and appeared to drift back to sleep. Request was made to begin titrating precedex down in order to facilitate psychiatric evaluation later in the afternoon. CC: Abby Unger, DO Past Med Surg Social Fam HX - Past Medical History Medical history: asthma, diabetes, GERD, hyperlipidemia, hypertension, seizures, TIA - Past Psychiatric History Psychiatric history: Reports: bipolar (historical diagnosis). Denies: previous psychiatric hospitalization - Past Surgical History Surgical History: appendectomy - Social History Smoking Status: Current every day smoker Smokeless Tobacco Status: No Alcohol use: none Drug use: none - Family History Mother Adopted: Yes Father Adopted: Yes Medications & Allergies Amlodipine Besylate 2.5 mg PO HS 09/20/17 [History] Pravastatin Sodium [Pravachol] 40 mg PO HS 09/20/17 [History] Aspirin [Adult Aspirin] 81 mg PO DAILY 06/26/18 [History] Insulin ASPART [NovoLOG] 0 - 20 unit SQ TIDWM MDD SLIDING SCALE 06/26/18 [Histor y] Liraglutide [Victoza 2-Fidencio] 1.2 mg SQ DAILY 06/26/18 [History] Multivit-Min/FA/Lycopen/Lutein [A Thru Z Select Men 50+ Tablet] 1 tab PO DAILY 06/26/18 [History] Nitroglycerin [Nitrostat] 0.4 mg SL Q5M PRN 06/26/18 [History] Omeprazole [PriLOSEC] 40 mg PO DAILY 06/26/18 [History] SUMAtriptan Succinate [Imitrex] 100 mg PO DAILY PRN 06/26/18 [History] Topiramate [Topamax] 100 mg PO BID 06/26/18 [History] Trazodone HCl 100 mg PO HS 06/26/18 [History] Insulin Degludec [Tresiba] 60 unit SQ DAILY 03/30/19 [History] Metformin HCl [Metformin HCl ER] 500 mg PO BID 03/30/19 [History] Allergy/AdvReac Type Severity Reaction Status Date / Time linagliptin [From Tradjenta] Allergy Hives Verified 03/29/19 20:31 terfenadine [From Seldane] Allergy Rash Verified 03/29/19 20:31 Varenicline [From Chantix] AdvReac Agitated Verified 03/29/19 20:31 Review of Systems ROS limited: due to patient condition Cardiovascular: Denies: chest pain Respiratory: Denies: dyspnea Neurological: Reports: memory loss. Denies: weakness, numbness Psychiatric: Reports: homicidal ideation. Denies: suicidal ideation, auditory hallucinations, visual hallucinations Psychiatry Exam - Constitutional Vitals: Temp Pulse Resp BP Pulse Ox 97.3 F L 71 14 127/89 96 03/31/19 10:00 03/31/19 10:00 03/31/19 10:00 03/31/19 10:00 03/31/19 10:00 General appearance: age & developmentally appropriate, well-nourished, disheveled - Musculoskeletal Strength & Tone: normal for patient (grossly normal per observation) - Psychiatric Patient Orientation: Yes Person, Yes Time, Yes Place Level of alertness: Alert, Follows commands Behavior: cooperative (intermittently cooperative), uncooperative, guarded Psychomotor activity: Normal Eye Contact: Minimal Contact Mood Description: Irritable Affect description: congruent with mood Speech Volume: Normal Speech pattern: normal rate, normal rhythm, normal tone, garbled Language & Vocabulary: consistent with education Thought Process: Intact Thought Content: No Suicidal ideation, No Homicidal ideation, No Overt delusions Perceptual Disturbances: No Reacting to internal stimuli, No Auditory hallucinations, No Visual hallucinations Attention Span Ability: Capable of Focused Attention Patient Reliability: Questionable Historian Results - Labs Labs: Laboratory Last Values WBC 4.4 K/mcL (4.3-11.1) 03/31/19 08:45 RBC 4.33 M/mcL (4.19-5.50) 03/31/19 08:45 Hgb 13.7 g/dL (12.9-16.9) 03/31/19 08:45 Hct 39.0 % (37.5-50.1) 03/31/19 08:45 MCV 90.1 fL (83.0-100.0) 03/31/19 08:45 MCH 31.6 pg (28.0-33.3) 03/31/19 08:45 MCHC 35.1 g/dL (31.6-35.5) 03/31/19 08:45 RDW 12.8 % (11.5-14.5) 03/31/19 08:45 Plt Count 36 K/mcL (140-400) L 03/31/19 08:45 MPV 10.6 fL (9.4-12.4) 03/31/19 08:45 Immature Gran % 0.2 % (0-4) 03/31/19 08:45 Seg Neutrophils % 77.4 % 03/31/19 08:45 Lymphocytes % 12.0 % 03/31/19 08:45 Monocytes % 8.2 % 03/31/19 08:45 Eosinophils % 2.0 % 03/31/19 08:45 Basophils % 0.2 % 03/31/19 08:45 Neutrophils # 3.4 K/mcL (1.6-8.9) 03/31/19 08:45 Lymphocytes # 0.5 K/mcL (0.6-4.6) L 03/31/19 08:45 Monocytes # 0.4 K/mcL (0.0-1.3) 03/31/19 08:45 Eosinophils # 0.1 K/mcL (0.0-0.6) 03/31/19 08:45 Basophils # 0.0 K/mcL (0.0-0.2) 03/31/19 08:45 Platelet Estimate Decreased (Normal) L 03/29/19 19:20 Immature Plt Fraction 5.0 % (1.1-6.1) 03/31/19 08:45 PT 15.4 Seconds (9.4-12.1) H 03/30/19 03:18 INR 1.4 03/30/19 03:18 APTT 30.1 Seconds (26.0-36.0) 03/30/19 03:18 VBG pH 7.40 pH Units (7.32-7.42) 03/29/19 19:41 VBG pCO2 38 mmHg (41-51) L 03/29/19 19:41 VBG pO2 148 mmHg (25-50) H 03/29/19 19:41 VBG HCO3 24 mEq/L (21-27) 03/29/19 19:41 Sodium 139 mEq/L (136-145) 03/31/19 08:45 Potassium 3.6 mEq/L (3.5-5.1) 03/31/19 08:45 Chloride 110 mEq/L (98-107) H 03/31/19 08:45 Carbon Dioxide 23 mEq/L (23-29) 03/31/19 08:45 BUN 10 mg/dL (6-20) 03/31/19 08:45 Creatinine 0.66 mg/dL (0.70-1.30) L 03/31/19 08:45 Est GFR ( Amer) > 60 (> 60) 03/31/19 08:45 Est GFR (Non-Af Amer) > 60 (> 60) 03/31/19 08:45 BUN/Creatinine Ratio 15 (6-26) 03/31/19 08:45 Glucose 281 mg/dL (70-105) H 03/31/19 08:45 POC Glucose 215 mg/dL (70-99) H 03/30/19 23:54 Calculated Osmolality 297 (280-300) 03/31/19 08:45 Calcium 8.7 mg/dL (8.6-10.3) 03/31/19 08:45 Phosphorus 2.7 mg/dL (2.7-4.5) 03/30/19 03:18 Magnesium 1.7 mg/dL (1.6-2.6) 03/30/19 03:18 Total Bilirubin 0.7 mg/dL (0.3-1.0) 03/30/19 03:18 Direct Bilirubin 0.1 mg/dL (0.0-0.2) 03/30/19 03:18 Indirect Bilirubin 0.6 mg/dL (0.0-1.2) 03/30/19 03:18 AST 16 Units/L (13-39) 03/30/19 03:18 ALT 21 Units/L (7-52) 03/30/19 03:18 Alkaline Phosphatase 46 Units/L (34-104) 03/30/19 03:18 Ammonia 46 mcmol/L (16-53) 03/30/19 04:34 Creatine Kinase 223 Units/L (30-223) 03/31/19 08:45 Serum Total Protein 6.1 g/dL (6.4-8.9) L 03/30/19 03:18 Albumin 3.6 g/dL (3.5-5.7) 03/30/19 03:18 Globulin 2.5 g/dL (2.4-3.5) 03/30/19 03:18 Albumin/Globulin Ratio 1.4 (1.1-2.2) 03/30/19 03:18 Lipase 24 Units/L (11-82) 03/29/19 19:20 Beta-Hydroxybutyric Acd 0.23 mmol/L (0.02-0.27) 03/29/19 19:20 Urine Color Yellow (Yellow) 03/29/19 21:24 Urine Clarity Clear (Clear) 03/29/19 21:24 Urine pH 5.0 pH Units (5.0-8.0) 03/29/19 21:24 Ur Specific [place] > 1.030 (1.010-1.025) H 03/29/19 21:24 Urine Protein Negative mg/dL (Neg-Trace) 03/29/19 21:24 Urine Glucose (UA) >=1000 mg/dL (Normal) H 03/29/19 21:24 Urine Ketones Negative mg/dL (Negative) 03/29/19 21:24 Urine Blood Negative (Negative) 03/29/19 21:24 Urine Nitrite Negative (Negative) 03/29/19 21:24 Urine Bilirubin Negative (Negative) 03/29/19 21:24 Urine Urobilinogen Normal mg/dL (Normal) 03/29/19 21:24 Ur Leukocyte Esterase Negative (Negative) 03/29/19 21:24 Ur Culture Indicated? NO (NO) 03/29/19 21:24 Salicylates < 2.5 mg/dL (15.0-30.0) L 03/29/19 19:20 Urine Opiates Screen Negative ng/mL (Mycyhf=365) 03/29/19 21:24 Ur Buprenorphine Scrn Negative ng/mL (Cutoff=5) 03/29/19 21:24 Acetaminophen < 10 mcg/mL (10-20) L 03/29/19 19:20 Ur Barbiturates Screen Negative ng/mL (Hswvfh=587) 03/29/19 21:24 Ur Phencyclidine Scrn Negative ng/mL (Cutoff=25) 03/29/19 21:24 Ur Amphetamines Screen Negative ng/mL (Bnqcke=2193) 03/29/19 21:24 U Benzodiazepines Scrn Positive ng/mL (Mvqcbb=608) H 03/29/19 21:24 Urine Cocaine Screen Negative ng/mL (Cutoff= 300) 03/29/19 21:24 U Marijuana (THC) Screen Negative ng/mL (Cutoff = 50) 03/29/19 21:24 Ur Drug Screen Interp See Below 03/29/19 21:24 Ethyl Alcohol < 10 mg/dL (Less than 10) 03/30/19 00:20 - Impressions Impressions Abdomen/Pelvis CTA 03/29/19 21:50 IMPRESSION: 1. No acute aortic pathology. Mild atherosclerotic plaque. No visceral stenosis. 2. Cirrhosis with portal hypertension including splenomegaly and varices. However, the SMV and portal vein thrombosis noted on previous imaging is not evaluated. 3. Redemonstration of infiltration of the retroperitoneal soft tissues, particularly along the distribution of the DALIA. I believe this is likely related to the patient's portal hypertension. I would recommend a short interval follow-up CT in 3 months time. At this time, imaging should be performed during the portal venous phase. 4. Otherwise stable CT of the abdomen and pelvis. D/ / 03/30/2019 07:03:46 José Miguel Albert MD / monica Interpreting Provider: José Miguel Albert MD Consult Discharge Plan - Plan Referrals: José Miguel Kelsey MD [Primary Care Provider] - - Attending Attestation I examined this patient and my medical decision-making was reviewed with the Resident Physician. I agree with the documented findings, disposition and treatment plan as described except to the extent set forth below. Assessed client a couple of times today. He was groggy both times but he was otherwise mentating clearly. He was fully oriented. Answered questions appropriately. Thoughts were organized and linear. No evidence of psychosis. Client denied AH/VH. He did not appear to be delusional or responding to internal stimuli. He initially denied remembering anything. He reported the last thing he remembered [place] and the next think he knew he was waking up here. Doubt this is true as client reported remembering having HI toward a security rep yesterday who was holding him down. Client appears to have some personality issues and antisocial tendencies. However, he is not evidencing any signs of a primary thought disorder. Client states he has a historical diagnosis on Bipolar Disorder. Doubt this is an accurate diagnosis as client has never had a mental health hospitalization before. Client denies current SI, intent, or plan and denies any history of suicidality. Client also denies any history of past psychotic episodes outside of seizure activity. Not having had prior hospitalizations, severe depressive episodes, severe manic episodes, or psychotic symptoms makes it seem like most, if not all, of his mental health issues are more likely driven by characterological issues and not primary mood or thought disorders. Client states he has been prescribed medications for Bipolar Disorder in the past but doesn't know what any of them are and does not appear to be taking anything now. Would not recommend starting anything at this time and just refer him for outpatient follow-up. Client denies wanting or needing anything from mental health. He does not meet pink slip criteria at this time. Client denies having any further HI and based on reports it seems like any HI he had was situational and directed at staff he felt were keeping him in the hospital. Once medically clear can discharge from psychiatry's standpoint. If he remains in the hospital for medical treatment and continues to need medications for agitation, would recommend using the same prns that kept him calm overnight. Psychiatry can see him again if any new concerns develop but will sign off for now.
[2019-03-31] MEDS: 0.9 % Sodium Chloride 1,000 ML IVC SCH ×2 (12:26→12:44)
--- NOTE | 2019-03-31 12:29 | Event Note ---
Date of Encounter: 03/31/19 Time of Encounter: 12:11 The patient was seen in f/u with concerns for seizures. He takes topamax for seizure control and his has reported adequate control with Topamax. However, he is currently unable to take oral medications and as such is getting IV Keppra. Yesterday he was agitated, combative, verbally aggressive with staff and threatening their well being and safety. He was also violent. As such, a code gonzález was called and the patient was placed in physical restraints and required precedex and zyprexa. He has required 2 more doses of zyprexa overnight and is still on zyprexa. My neurological exam is limited by the fact that he is on sedation. He does however opens his eyes to command, and moves all four extremities purposefully without any obvious deficits. Brainstem reflexes are intact as is sensation and peripheral reflexes. In regards to seizures there has not been any witnessed seizure activity since admission and he is not in status epilepticus; EEG was a normal awake and drowsy EEG with beta activity which can be seen with BZD's. Continue with seizure precautions, continue IV Keppra at current dose. D/C IV Keppra when clinically appropriate and restart Topamax at home dose. I do not suspect that there is an acute neurological component complicit to his agitation, violent and combative behavior. Psychiatry is follow; recommendations are appreciated. Defer to primary team and psychology for management. Neurology will sign-off.
--- NOTE | 2019-03-31 16:40 | Discharge Summary ---
<Madhavi Tineo - Last Filed: 03/31/19 17:03> Date of Encounter: 03/31/19 Time of Encounter: 10:20 - Discharge Diagnosis (1) Thrombocytopenia Status: Chronic (2) Cirrhosis Status: Chronic Qualifiers: Hepatic cirrhosis type: alcoholic cirrhosis Ascites presence: unspecified Qualified Code(s): K70.30 - Alcoholic cirrhosis of liver without ascites (3) Agitation Status: Acute (4) Hepatic encephalopathy Status: Resolved (5) Seizure disorder Status: Chronic (6) DM type 2 (diabetes mellitus, type 2) Status: Acute Qualifiers: Diabetes mellitus senior living insulin use: with [employer] use Diabetes mellitus complication status: with hyperglycemia Qualified Code(s): E11.65 - Type 2 diabetes mellitus with hyperglycemia; Z79.4 - [employer] (current) use of insulin (7) Pneumonia Status: Acute Qualifiers: Pneumonia type: due to unspecified organism Laterality: bilateral Lung location: unspecified part of lung Qualified Code(s): J18.9 - Pneumonia, unspecified organism Hospital course: Mr. Munoz is a 43 year old male - Time Spent with Patient Total time spent providing and/or coordinating discharge services: - Discharge Medications Prescriptions: New Doxycycline 100 mg PO BID 10 Days #20 capsule Cefdinir [Omnicef] 300 mg PO BID 10 Days #20 capsule Continued Nitroglycerin [Nitrostat] 0.4 mg SL Q5M PRN PRN Reason: Chest Pain Trazodone HCl 100 mg PO HS SUMAtriptan Succinate [Imitrex] 100 mg PO DAILY PRN PRN Reason: Migraine Headache Topiramate [Topamax] 100 mg PO BID Omeprazole [PriLOSEC] 40 mg PO DAILY Multivit-Min/FA/Lycopen/Lutein [A Thru Z Select Men 50+ Tablet] 1 tab PO DAILY Liraglutide [Victoza 2-Fidencio] 1.2 mg SQ DAILY Aspirin [Adult Aspirin] 81 mg PO DAILY Insulin ASPART [NovoLOG] 0 - 20 unit SQ TIDWM MDD SLIDING SCALE Insulin Degludec [Tresiba] 60 unit SQ DAILY Metformin HCl [Metformin HCl ER] 500 mg PO BID Pravastatin Sodium [Pravachol] 40 mg PO HS Amlodipine Besylate 2.5 mg PO HS Home Medications: Amlodipine Besylate 2.5 mg PO HS 09/20/17 [History] Pravastatin Sodium [Pravachol] 40 mg PO HS 09/20/17 [History] Aspirin [Adult Aspirin] 81 mg PO DAILY 06/26/18 [History] Insulin ASPART [NovoLOG] 0 - 20 unit SQ TIDWM MDD SLIDING SCALE 06/26/18 [History] Liraglutide [Victoza 2-Fidencio] 1.2 mg SQ DAILY 06/26/18 [History] Multivit-Min/FA/Lycopen/Lutein [A Thru Z Select Men 50+ Tablet] 1 tab PO DAILY 06/26/18 [History] Nitroglycerin [Nitrostat] 0.4 mg SL Q5M PRN 06/26/18 [History] Omeprazole [PriLOSEC] 40 mg PO DAILY 06/26/18 [History] SUMAtriptan Succinate [Imitrex] 100 mg PO DAILY PRN 06/26/18 [History] Topiramate [Topamax] 100 mg PO BID 06/26/18 [History] Trazodone HCl 100 mg PO HS 06/26/18 [History] Insulin Degludec [Tresiba] 60 unit SQ DAILY 03/30/19 [History] Metformin HCl [Metformin HCl ER] 500 mg PO BID 03/30/19 [History] Cefdinir [Omnicef] 300 mg PO BID 10 Days #20 capsule 03/31/19 [Rx] Doxycycline 100 mg PO BID 10 Days #20 capsule 03/31/19 [Rx] Allergies/Adverse Reactions: Allergy/AdvReac Type Severity Reaction Status Date / Time linagliptin [From Tradjenta] Allergy Hives Verified 03/29/19 20:31 terfenadine [From Seldane] Allergy Rash Verified 03/29/19 20:31 Varenicline [From Chantix] AdvReac Agitated Verified 03/29/19 20:31 Date of admission: 03/31/19 09:14 Primary care physician: José Miguel Kelsey MD Consults: 03/30/19 00:16 Consult to Neurology [CONS] Stat Consulting Provider: [facility] Reason for Consult: seizure Time Notified: 00:17 Call Completed: Yes 03/30/19 17:47 Consult to Psychiatry [CONS] Stat Consulting Provider: [facility] Reason consult: Collyer slip on chart Psychosis Collyer Slip initiated date and time: 03/30/19 1600 Time Notified: 17:47 Call Completed: Yes - Constitutional Vitals: Temp Pulse Resp BP Pulse Ox 98.2 F 80 14 129/87 94 03/31/19 16:00 03/31/19 16:00 03/31/19 16:00 03/31/19 16:00 03/31/19 16:00 - Patient Status Disposition: Home, Self-Care Condition: Good - Discharge Instructions Follow Up With: José Miguel Kelsey MD [Primary Care Provider] - (Web request sent) - Attending Attestation I saw evaluated and examined this patient and reviewed objective data including labs and my medical decision-making was reviewed with the Resident Physician, Sreedhar Laguerre. I agree with the documented findings, disposition and discharge plan as described except to any changes set forth below. We independently had doll-[id number] contact with the patient. Patient with a history of seizure disorder was hospitalized here initially after an episode of seizure at home. He required multiple doses of Ativan and sedating medications to control symptoms of aggression and agitation while in the ER. He was then placed on Precedex drip and transferred to the floor. In the ER he had a chest x-ray done which suggested a possible pneumonia. Patient was treated with antibiotics for this. Patient continued to have episodes of agitation and aggression and expressed homicidal intent yesterday and so he was pink slipped and placed under psychiatric hold. He received antipsychotic a gents to calm him down. Today he was evaluated by psychiatry and he does not express homicidal or suicidal ideation. As such pink slip has been lifted and patient has been cleared from a psychiatric standpoint. Patient will be discharged home today and will complete a short course of antibiotic therapy for pneumonia. Patient was evaluated by neurology for seizure disorder. He underwent EEG which did not show any seizure-like activity. They did not recommend any further medication changes. Patient did receive IV Keppra here but has been recommended to go back on Topamax at discharge and follow-up outpatient. Patient will also need to follow up with his psychiatrist to get treated for his underlying psychiatric illness which has been previously diagnosed as bipolar disorder. Time spent on discharge: 5 min <Sreedhar Laguerre - Last Filed: 03/31/19 21:35> - NOTES TO OUTPATIENT PROVIDER Notes to Outpatient Provider: admitted after a suspected seizure. required multiple sedating medications due to agression and agitation. Given abx for possible pneumonia. Neurology recommended continuing home dose of Topamax Date of Encounter: 03/31/19 Time of Encounter: 16:36 - Discharge Diagnosis (1) Thrombocytopenia Priority: Secondary Status: Chronic (2) Cirrhosis Priority: Secondary Status: Chronic Qualifiers: Hepatic cirrhosis type: alcoholic cirrhosis Ascites presence: unspecified Qualified Code(s): K70.30 - Alcoholic cirrhosis of liver without ascites (3) Agitation Priority: Secondary Status: Acute (4) Hepatic encephalopathy Priority: Primary Status: Resolved (5) Seizure disorder Priority: Secondary Status: Chronic (6) DM type 2 (diabetes mellitus, type 2) Priority: Secondary Status: Acute Qualifiers: Diabetes mellitus senior living insulin use: with senior living use Diabetes mellitus complication status: with hyperglycemia Qualified Code(s): E11.65 - Type 2 diabetes mellitus with hyperglycemia; Z79.4 - detention (current) use of insulin (7) Pneumonia Priority: Primary Status: Acute Qualifiers: Pneumonia type: due to unspecified organism Laterality: bilateral Lung location: unspecified part of lung Qualified Code(s): J18.9 - Pneumonia, unspecified organism Hospital course: Mr. Munoz is a 43 year old male with PMH of asthma, DM2, HLD, HTN, seizures, liver cirrhosis, and bipolar disorder. He was admitted on 03/30/19 for altered mental status and seizure like activity. Per reports of the pt's , [place] when the patient began having seizure like activity. Pt's brought him to our ER in their personal vehicle. Initially in the ER the patient was lethargic in a post-ictal state, but then became very agitated and aggressive. He required multiple doses of Ativan and sedating medications to control these symptoms while in the ER. He was then placed on Precedex drip and transferred to the floor. CXR from the ER suggested a possible pneumonia. The patient was treated with empiric Zosyn for this. During admission the patient continued to have episodes of agitation and aggression and expressed homicidal intent on 03/30. A pink slip was filled out and the patient placed under psychiatric hold. He received multiple antipsychotic agents to calm him down. The following day the patient was evaluated by psychiatry and did not express homicidal or suicidal ideation. Due to this the psychiatric hold was lifted. Patient will be discharged home today and will complete a short course of antibiotic therapy for pneumonia. Patient was evaluated by neurology for seizure disorder. During admission the patient was also evaluated by neurology. Initially the patient was given IV Keppra while sedation was required. An EEG was obtained but did not show any seizure-like activity. Once the patient was weaned off Precedex drip and was no longer combative, the patient was recommended to continue his home dose of Topamax at discharge and follow-up outpatient with his neurologist at [facility]. The patient was also recommended to follow up with his psychiatrist to get treated for his underlying psychiatric illness, previously diagnosed as bipolar disorder. Lastly the patient was given a prescription for a 10 day course of Omnicef and Doxycycline for possible pneumonia. Recommend pt follow up with his PCP to ensure resolution. At time of discharge the patient was no longer agitated or aggressive. Discharged to home without complication. Discharge discussed with: patient, nurse, nursing education consultant - Time Spent with Patient Total time spent providing and/or coordinating discharge services: Date of admission: 03/31/19 09:14 Primary care physician: José Miguel Kelsey MD Consults: 03/30/19 00:16 Consult to Neurology [CONS] Stat Consulting Provider: [facility] Reason for Consult: seizure Time Notified: 00:17 Call Completed: Yes 03/30/19 17:47 Consult to Psychiatry [CONS] Stat Consulting Provider: [facility] Reason consult: Collyer slip on chart Psychosis Collyer Slip initiated date and time: 03/30/19 1600 Time Notified: 17:47 Call Completed: Yes - Constitutional Vitals: Temp Pulse Resp BP Pulse Ox 98.2 F 80 14 129/87 94 03/31/19 16:00 03/31/19 16:00 03/31/19 16:00 03/31/19 16:00 03/31/19 16:00 General appearance: Present: cooperative, A&O X 3, no acute distress, answers questions appropriately Exam: General: well developed male in no acute distress Head: NCAT Eyes: PERRL, EOMI, sclera anicteric Neck: supple, trachea midline Lungs: CTA bilaterally. non-labored breathing. No wheezes, rales, or rhonchi appreciated Heart: RRR +s1 +s2 No murmurs, clicks, or rubs GI: abdomen soft, non-tender, mild distention. Extremities: warm, radial pulses palpable and symmetrical. no edema, cyanosis, or calf tenderness Neuro: A&Ox3. No focal deficits. No speech difficulty or abnormality Skin: Warm, dry, intact - Patient Status Functional capacity at discharge: independent ambulation Overall status at discharge: patient is back to baseline - Diet and Activity Activity: increase activity as tolerated, resume usual activities as tolerated Diet: diabetic diet
[2019-03-31 17:08] VITALS: BP 134/96
[2019-03-31] MEDS ORDERED: *HR* Midazolam HCl 5 MG/5 ML VIAL IVP ONE (18:09)
== END 2019-03-31 18:10 | disposition home or self-care (01) | DRG 100 ==
LOC: 2NNU 17:27 → EMEROOARM 17:27 → 2NNU 03-30 01:35
PROVIDERS: ADMIT Internal Medicine; ATTEND Internal Medicine

== ENCOUNTER 2022-03-20 20:40 | Inpatient (IN) ==
[2022-03-20] MEDS ORDERED: Melatonin 3 MG TABLET PO PRN (23:06)
[2022-03-20] MEDS ORDERED: Ondansetron ODT 4 MG TAB.RAPDIS SL PRN (23:06)
[2022-03-20] MEDS ORDERED: Acetaminophen 325 MG TABLET PO PRN (23:06)
[2022-03-20] MEDS ORDERED: Naloxone 0.4 MG/ML INJ IVP PRN (23:06)
[2022-03-20] MEDS ORDERED: MOM Conc 10 ML UD.LIQ PO PRN (23:06)
[2022-03-20] MEDS ORDERED: D5% in Water 1,000 ML IVC PRN (23:33)
[2022-03-20] MEDS ORDERED: Dextrose Gel 15 GM/37.5 ML TUBE PO PRN ×2 (23:33)
[2022-03-20] MEDS ORDERED: *HR* Dextrose 50 % in Water (Syg) 50 ML SYRINGE IVP PRN (23:33)
[2022-03-21] MEDS: Insulin LISPRO 300 UNITS/3 ML VIAL SUBQ SCH ×2 (00:02→06:44)
[2022-03-21] MEDS ORDERED: *HR* HYDROcodone/Acet 5/325 mg TABLET PO PRN (00:46)
[2022-03-21] MEDS: Octreotide 400 MCG in 0.9 % Sodium Chloride 100 ML IVC SCH ×2 (01:31→08:55)
[2022-03-21 02:12] LABS: Red Blood Count 4.15 M/mcL (4.19-5.50); Red Cell Distribution Width 12.8 % (11.5-14.5)
[2022-03-21 02:14] LABS: Hematocrit 36.1 % (37.5-50.1); Hemoglobin 12.5 g/dL (12.9-16.9); Immature Platelets 8.4 % (1.1-6.1); Mean Corpuscular HGB Conc 34.6 g/dL (31.6-35.5); Mean Corpuscular Hemoglobin 30.1 pg (28.0-33.3); Mean Platelet Volume 11.1 fL (9.4-12.4); White Blood Count 4.7 K/mcL (4.3-11.1)
[2022-03-21 02:24] LABS: INR 1.4; Prothrombin Time 15.4 Seconds (9.4-12.1)
[2022-03-21 02:27] LABS: Activated Partial Thrombo Time 30.5 Seconds (26.0-36.0)
[2022-03-21 02:48] LABS: BUN/Creatinine Ratio 12 (6-26); Blood Urea Nitrogen 8 mg/dL (6-20); Calcium 9.1 mg/dL (8.6-10.3); Carbon Dioxide 29 mEq/L (23-29); Chloride 105 mEq/L (98-107); Glucose 218 mg/dL (70-105); Osmolality,Calculated 293 (280-300); Potassium 4.1 mEq/L (3.5-5.1); Sodium 139 mEq/L (136-145)
[2022-03-21] MEDS ORDERED: Pantoprazole 40 MG VIAL IVP SCH (06:00)
[2022-03-21] MEDS ORDERED: Isosorbide MONOnitrate (24 HR) 30 MG TAB.ER.24H PO SCH ×2 (06:35→09:00)
[2022-03-21] MEDS ORDERED: Pregabalin 75 MG CAPSULE PO SCH (09:00)
[2022-03-21] MEDS ORDERED: Cyanocobalamin (B-12) 1,000 MCG TABLET PO SCH (09:00)
[2022-03-21] MEDS ORDERED: cefTRIAXone 1,000 MG in Water for inj. (sterile) 10 ML IVP SCH (09:00)
[2022-03-21] MEDS ORDERED: levETIRAcetam 250 MG TABLET PO SCH (09:00)
[2022-03-21] MEDS ORDERED: Metoprolol XL (24 HR) Succ 50 MG TAB.ER.24H PO SCH (09:00)
[2022-03-21] MEDS ORDERED: QUEtiapine Fumarate 100 MG TABLET PO SCH (09:00)
[2022-03-21 09:22] VITALS: O2SAT 97
[2022-03-21] MEDS ORDERED: Lidocaine -MPF 2% 5 ML VIAL ONE (09:29)
[2022-03-21] MEDS ORDERED: 0.9 % Sodium Chloride 250 ML ONE (10:47)
[2022-03-21 11:16] VITALS: TEMP 97.7
[2022-03-21 12:36] VITALS: BP 110/75; PULSE 84
== END 2022-03-21 13:00 | disposition home or self-care (01) | DRG 368 ==
LOC: 2NNU → SUATTDRO 23:46
PROVIDERS: ADMIT Internal Medicine; ATTEND Internal Medicine